=== PATIENT | female | born 1935 | race African-American/Black ===

== ENCOUNTER 2017-03-22 04:41 | Inpatient (IN) | payer MEDICARE, MEDICAID ==
[~2017-03-22] VITALS: Ht 162.6 cm; Wt 69.9 kg
[2017-03-22] VITALS (57 sets, daily range): BP systolic 55–147; BP diastolic 25–102
[2017-03-22] MEDS ORDERED: NOREPINEPHRINE 4MG in DEXT 5% WATER 250ML IV PRN (06:00)
[2017-03-22] MEDS ORDERED: STERILE WATER FOR INJECTION 10ML VIAL ONE (06:00)
[2017-03-22] MEDS ORDERED: ETOMIDATE 2MG/ML 10ML VIAL IV ONE (06:00)
[2017-03-22] MEDS ORDERED: VECURONIUM BROMIDE 10 MG/VIAL IV ONE (06:00)
[2017-03-22] MEDS ORDERED: SODIUM CHLORIDE 0.9% 1,000 ML IV SCH (06:15)
[2017-03-22] MEDS ORDERED: VANCOMYCIN 1 G PREMIX 200 ML IV SCH ×2 (06:15→09:30)
[2017-03-22 06:46] LABS: BASOPHILS % 0.2 % (0.0-2.0); EOSINOPHILS % 0.1 % (0.0-5.0); HEMATOCRIT. 32.4 % (36.0-48.0); HEMOGLOBIN. 10.6 g/dL (12.0-16.0); LYMPHOCYTES % 12.7 % (20.0-50.0); MEAN CORPUSCULAR HEMOGLOBIN 28.7 pg (28.0-32.0); MEAN CORPUSCULAR VOLUME 87.7 fL (81.0-99.0); MEAN PLATELET VOLUME 8.6 fl (7.4-10.4); MONOCYTES % 14.4 % (2.0-8.0); NEUTROPHILS % 72.6 % (40.0-76.0); PLATELET 398 x1000/uL (130-400); RED CELL DISTRIBUTION WIDTH 17.2 % (11.6-14.6)
[2017-03-22 06:58] LABS: CARBON DIOXIDE 26 mEq/L (21-32); CHLORIDE 96 mEq/L (98-107)
[2017-03-22 07:11] LABS: INR 1.3; PROTHROMBIN TIME 13.1 sec (9.4-11.6)
[2017-03-22 07:26] LABS: CLARITY URINE CLOUDY (CLEAR); COLOR URINE YELLOW (YELLOW); GLUCOSE URINE 1+ (NEGATIVE); KETONES URINE NEGATIVE (NEGATIVE); LEUKOCYTE ESTERASE URINE 1+ (NEGATIVE); NITRITE URINE NEGATIVE (NEGATIVE); OCCULT BLOOD URINE 1+ (NEGATIVE); PH URINE 8.5 (4.5-8.0); PROTEIN URINE 2+ (NEGATIVE); SPECIFIC GRAVITY URINE 1.014 (1.005-1.030); UROBILINOGEN URINE 0.2 E.U./dL (0.2-1.0)
[2017-03-22] MEDS ORDERED: IPRATROPIUM/ALBUTEROL 0.5-3(2.5)MG/3ML NEB HHN PRN (08:00)
[2017-03-22] MEDS ORDERED: CEFEPIME 1,000 MG in DEXTROSE 5% WATER 50 ML IV SCH (08:00)
[2017-03-22 08:02] LABS: INR 1.2; PROTHROMBIN TIME 12.7 sec (9.4-11.6)
[2017-03-22 08:21] LABS: BG BASE EXCESS -3.8 mmol/L (-2.0-2.0); BG CARBOXYHEMOGLOBIN 0.4 % (0.5-1.5); BG DEOXYHEMOGLOBIN 0.4 % (0.0-5.0); BG HCO3 ACT 22.1 mmol/L (22.0-26.0); BG METHEMOGLOBIN 0.4 % (0.0-1.5); BG OXYGEN SATURATION 99.6 % (92.0-98.5); BG OXYHEMOGLOBIN 98.8 % (94.0-97.0); BG PCO2 43.1 mmHg (35.0-45.0); BG PH 7.327 (7.350-7.450); BG PO2 327.3 mmHg (75.0-100.0); BG SAMPLE SITE RIGHT RADIAL; BG TIDAL VOLUME(mL) 550 mL; BG TOTAL HEMOGLOBIN 12.4 g/dL (12.0-18.0); BG VENT MODE VENT - A/C; BG VENT RATE 12 set
[2017-03-22] MEDS ORDERED: PROPOFOL 10MG/ML 100ML 100 ML IV PRN (09:12)
[2017-03-22] MEDS ORDERED: LEVOFLOXACIN 500MG PREMIX 100 ML IV SCH (09:30)
[2017-03-22] MEDS ORDERED: ONDANSETRON HCL 4MG/2ML VIAL IV PRN (09:30)
[2017-03-22] MEDS ORDERED: DOCUSATE SODIUM 100MG CAPSULE PO PRN (09:30)
[2017-03-22] MEDS ORDERED: LORAZEPAM 2MG/ML CPJ IV PRN (09:30)
[2017-03-22] MEDS ORDERED: NA PHOS,M-B/NA PHOS,DI-BA ENEMA 118ML PR PRN (09:30)
[2017-03-22] MEDS ORDERED: MAGNESIUM/ALUMINUM HYDROXIDE/SIMETHICONE 30ML UDC PO PRN (09:30)
[2017-03-22] MEDS ORDERED: DEXTROSE 50% WATER 50ML SYRINGE IV PRN (09:30)
[2017-03-22] MEDS ORDERED: NOREPINEPHRINE 8 MG in DEXT 5% WATER 242 ML IV PRN (10:30)
[2017-03-22] MEDS: ENOXAPARIN 40MG/0.4ML SYR SUBCUT SCH (10:36)
[2017-03-22] MEDS: FAMOTIDINE 20MG/2ML VIAL IV SCH (10:36)
[2017-03-22] MEDS: DEXT 5%/0.9% NACL KCL 20MEQ/L 1,000 ML IV SCH ×2 (10:37→10:44)
[2017-03-22] MEDS: LEVOFLOXACIN 750MG PREMIX 150 ML IV SCH (10:38)
[2017-03-22] MEDS: BLOOD SUGAR DIAGNOSTIC STRIP TEST SCH ×3 (12:01→21:00)
[2017-03-22] MEDS: INSULIN LISPRO 100 UNITS/ML SUBCUT SCH ×3 (12:08→22:51)
[2017-03-22] MEDS: IPRATROPIUM/ALBUTEROL 0.5-3(2.5)MG/3ML NEB HHN SCH ×2 (14:20→20:50)
[2017-03-22 15:53] LABS: CREATINE KINASE MB FRACTION 2.1 ng/mL (0.5-3.6); TROPONIN I 0.05 ng/mL (0.00-0.04)
[2017-03-22] MEDS: VANCOMYCIN 750 MG PREMIX 150 ML IV SCH (23:01)
[2017-03-22 23:35] LABS: TROPONIN I 0.03 ng/mL (0.00-0.04)
[2017-03-23] VITALS (83 sets, daily range): BP systolic 92–149; BP diastolic 42–74
[2017-03-23] MEDS: IPRATROPIUM/ALBUTEROL 0.5-3(2.5)MG/3ML NEB HHN SCH ×4 (02:21→20:37)
[2017-03-23] MEDS: DEXT 5%/0.9% NACL KCL 20MEQ/L 1,000 ML IV SCH ×2 (05:45→16:34)
[2017-03-23] MEDS: BLOOD SUGAR DIAGNOSTIC STRIP TEST SCH ×4 (05:53→20:59)
[2017-03-23] MEDS: INSULIN LISPRO 100 UNITS/ML SUBCUT SCH ×4 (06:04→21:12)
[2017-03-23] MEDS ORDERED: NOREPINEPHRINE 8 MG in DEXT 5% WATER 242 ML IV PRN (06:30)
[2017-03-23] MEDS: FAMOTIDINE 20MG/2ML VIAL IV SCH (08:43)
[2017-03-23] MEDS: ENOXAPARIN 40MG/0.4ML SYR SUBCUT SCH (08:43)
[2017-03-23 09:28] LABS: BG BASE EXCESS 0.3 mmol/L (-2.0-2.0); BG CARBOXYHEMOGLOBIN 0.3 % (0.5-1.5); BG DEOXYHEMOGLOBIN 2.3 % (0.0-5.0); BG FRACTION INSPIRED OXYGEN 40; BG HCO3 ACT 23.9 mmol/L (22.0-26.0); BG METHEMOGLOBIN 0.1 % (0.0-1.5); BG OXYGEN SATURATION 97.7 % (92.0-98.5); BG OXYHEMOGLOBIN 97.3 % (94.0-97.0); BG PCO2 34.5 mmHg (35.0-45.0); BG PH 7.458 (7.350-7.450); BG PO2 97.5 mmHg (75.0-100.0); BG SAMPLE SITE RIGHT RADIAL; BG TIDAL VOLUME(mL) 550 mL; BG TOTAL HEMOGLOBIN 9.4 g/dL (12.0-18.0); BG VENT MODE VENT - A/C; BG VENT RATE 12 set
[2017-03-23 15:16] LABS: CARBON DIOXIDE 26 mEq/L (21-32); CHLORIDE 108 mEq/L (98-107)
[2017-03-23 16:24] LABS: BASOPHILS % 0.2 % (0.0-2.0); EOSINOPHILS % 0.2 % (0.0-5.0); HEMATOCRIT. 27.3 % (36.0-48.0); HEMOGLOBIN. 8.9 g/dL (12.0-16.0); LYMPHOCYTES % 14.3 % (20.0-50.0); MEAN CORPUSCULAR HEMOGLOBIN 28.6 pg (28.0-32.0); MEAN PLATELET VOLUME 8.1 fl (7.4-10.4); MONOCYTES % 13.5 % (2.0-8.0); NEUTROPHILS % 71.8 % (40.0-76.0); PLATELET 333 x1000/uL (130-400); RED CELL DISTRIBUTION WIDTH 17.2 % (11.6-14.6)
[2017-03-23 16:58] LABS: BG BASE EXCESS -0.1 mmol/L (-2.0-2.0); BG CARBOXYHEMOGLOBIN 0.1 % (0.5-1.5); BG DEOXYHEMOGLOBIN 6.4 % (0.0-5.0); BG FRACTION INSPIRED OXYGEN 40; BG HCO3 ACT 24.1 mmol/L (22.0-26.0); BG METHEMOGLOBIN 0.2 % (0.0-1.5); BG OXYGEN SATURATION 93.6 % (92.0-98.5); BG OXYHEMOGLOBIN 93.3 % (94.0-97.0); BG PCO2 37.7 mmHg (35.0-45.0); BG PH 7.424 (7.350-7.450); BG PO2 65.9 mmHg (75.0-100.0); BG PRESSURE SUPPORT 15; BG SAMPLE SITE RIGHT BRACHIAL; BG TIDAL VOLUME(mL) 550 mL; BG TOTAL HEMOGLOBIN 9.5 g/dL (12.0-18.0); BG VENT MODE VENT - SIMV; BG VENT RATE 10 set
[2017-03-23] MEDS: VANCOMYCIN 750 MG PREMIX 150 ML IV SCH (17:21)
[2017-03-24] VITALS (48 sets, daily range): BP systolic 102–165; BP diastolic 50–107
[2017-03-24] MEDS: IPRATROPIUM/ALBUTEROL 0.5-3(2.5)MG/3ML NEB HHN SCH ×4 (02:08→19:57)
[2017-03-24] MEDS: DEXT 5%/0.9% NACL KCL 20MEQ/L 1,000 ML IV SCH ×3 (02:37→22:06)
[2017-03-24] MEDS: BLOOD SUGAR DIAGNOSTIC STRIP TEST SCH ×4 (05:50→21:55)
[2017-03-24] MEDS: INSULIN LISPRO 100 UNITS/ML SUBCUT SCH ×4 (05:50→22:05)
[2017-03-24] MEDS: FAMOTIDINE 20MG/2ML VIAL IV SCH (08:09)
[2017-03-24] MEDS: ENOXAPARIN 40MG/0.4ML SYR SUBCUT SCH (08:09)
[2017-03-24 09:18] LABS: BG BASE EXCESS -1.9 mmol/L (-2.0-2.0); BG CARBOXYHEMOGLOBIN 0.4 % (0.5-1.5); BG DEOXYHEMOGLOBIN 2.4 % (0.0-5.0); BG FRACTION INSPIRED OXYGEN 40; BG HCO3 ACT 22.1 mmol/L (22.0-26.0); BG METHEMOGLOBIN 0.4 % (0.0-1.5); BG OXYGEN SATURATION 97.6 % (92.0-98.5); BG OXYHEMOGLOBIN 96.8 % (94.0-97.0); BG PH 7.419 (7.350-7.450); BG PO2 93.9 mmHg (75.0-100.0); BG SAMPLE SITE RIGHT RADIAL; BG TIDAL VOLUME(mL) 550 mL; BG TOTAL HEMOGLOBIN 9.6 g/dL (12.0-18.0); BG VENT MODE VENT - A/C; BG VENT RATE 12 set
[2017-03-24] MEDS: LEVOFLOXACIN 750MG PREMIX 150 ML IV SCH (10:23)
[2017-03-24] MEDS: VANCOMYCIN 1 G PREMIX 200 ML IV SCH (10:31)
[2017-03-24] MEDS: ACETAMINOPHEN 325MG TABLET PO PRN (13:17)
[2017-03-24] MEDS: AZTREONAM 1 G in DEXTROSE 5% WATER 50 ML IV SCH ×2 (14:37→22:05)
[2017-03-24 20:27] LABS: HEMATOCRIT. 25.6 % (36.0-48.0); HEMOGLOBIN. 8.3 g/dL (12.0-16.0); MEAN CORPUSCULAR HEMOGLOBIN 28.4 pg (28.0-32.0); MEAN CORPUSCULAR VOLUME 88.2 fL (81.0-99.0); MEAN PLATELET VOLUME 8.9 fl (7.4-10.4); PLATELET 335 x1000/uL (130-400); RED CELL DISTRIBUTION WIDTH 17.3 % (11.6-14.6)
[2017-03-24 20:28] LABS: CHLORIDE 108 mEq/L (98-107)
[2017-03-24 20:36] LABS: CARBON DIOXIDE 24 mEq/L (21-32)
[2017-03-24 21:19] LABS: PLATELET ESTIMATE NORMAL
[2017-03-25] VITALS (46 sets, daily range): BP systolic 97–159; BP diastolic 51–116
[2017-03-25] MEDS: VANCOMYCIN 1 G PREMIX 200 ML IV SCH (03:35)
[2017-03-25] MEDS: AZTREONAM 1 G in DEXTROSE 5% WATER 50 ML IV SCH ×3 (05:07→21:20)
[2017-03-25 05:47] LABS: HEMATOCRIT. 24.5 % (36.0-48.0); MEAN CORPUSCULAR HEMOGLOBIN 28.8 pg (28.0-32.0); MEAN PLATELET VOLUME 8.5 fl (7.4-10.4); PLATELET 315 x1000/uL (130-400); RED BLOOD CELL COUNT 2.79 mill/uL (4.2-5.4); RED CELL DISTRIBUTION WIDTH 17.8 % (11.6-14.6)
[2017-03-25] MEDS: ACETAMINOPHEN 325MG TABLET PO PRN (06:24)
[2017-03-25] MEDS: BLOOD SUGAR DIAGNOSTIC STRIP TEST SCH ×4 (06:41→20:28)
[2017-03-25] MEDS: INSULIN LISPRO 100 UNITS/ML SUBCUT SCH ×4 (06:46→20:28)
[2017-03-25] MEDS: DEXT 5%/0.9% NACL KCL 20MEQ/L 1,000 ML IV SCH ×2 (06:57→17:19)
[2017-03-25 06:58] LABS: CARBON DIOXIDE 23 mEq/L (21-32); CHLORIDE 107 mEq/L (98-107)
[2017-03-25 07:47] LABS: PLATELET ESTIMATE NORMAL
[2017-03-25] MEDS: ENOXAPARIN 40MG/0.4ML SYR SUBCUT SCH (08:11)
[2017-03-25] MEDS: FAMOTIDINE 20MG/2ML VIAL IV SCH (08:11)
[2017-03-25] MEDS: IPRATROPIUM/ALBUTEROL 0.5-3(2.5)MG/3ML NEB HHN SCH ×3 (08:33→20:26)
[2017-03-25 09:38] LABS: BG BASE EXCESS -2.2 mmol/L (-2.0-2.0); BG CARBOXYHEMOGLOBIN 0.6 % (0.5-1.5); BG DEOXYHEMOGLOBIN 1.2 % (0.0-5.0); BG FRACTION INSPIRED OXYGEN 40; BG HCO3 ACT 21.7 mmol/L (22.0-26.0); BG METHEMOGLOBIN 0.3 % (0.0-1.5); BG OXYGEN SATURATION 98.8 % (92.0-98.5); BG OXYHEMOGLOBIN 97.9 % (94.0-97.0); BG PH 7.435 (7.350-7.450); BG PO2 119.9 mmHg (75.0-100.0); BG SAMPLE SITE RIGHT RADIAL; BG TIDAL VOLUME(mL) 550 mL; BG TOTAL HEMOGLOBIN 8.4 g/dL (12.0-18.0); BG VENT MODE VENT - A/C; BG VENT RATE 12 set
[2017-03-25] MEDS: AMIKACIN 500MG in SODIUM CHLORIDE 0.9% 100ML IV SCH (15:15)
[2017-03-26] VITALS (46 sets, daily range): BP systolic 107–189; BP diastolic 49–138
[2017-03-26] MEDS: ACETAMINOPHEN 325MG TABLET PO PRN ×2 (00:39→19:36)
[2017-03-26] MEDS: IPRATROPIUM/ALBUTEROL 0.5-3(2.5)MG/3ML NEB HHN SCH ×4 (01:42→20:47)
[2017-03-26] MEDS: DEXT 5%/0.9% NACL KCL 20MEQ/L 1,000 ML IV SCH ×2 (04:54→15:21)
[2017-03-26] MEDS: AZTREONAM 1 G in DEXTROSE 5% WATER 50 ML IV SCH ×3 (04:57→21:28)
[2017-03-26] MEDS: BLOOD SUGAR DIAGNOSTIC STRIP TEST SCH ×4 (06:11→20:03)
[2017-03-26 06:34] LABS: CARBON DIOXIDE 22 mEq/L (21-32); CHLORIDE 106 mEq/L (98-107)
[2017-03-26] MEDS: INSULIN LISPRO 100 UNITS/ML SUBCUT SCH ×4 (06:48→21:08)
[2017-03-26 07:30] LABS: HEMATOCRIT. 26.6 % (36.0-48.0); HEMOGLOBIN. 8.1 g/dL (12.0-16.0); MEAN CORPUSCULAR HEMOGLOBIN 27.3 pg (28.0-32.0); RED BLOOD CELL COUNT 2.98 mill/uL (4.2-5.4); RED CELL DISTRIBUTION WIDTH 18.2 % (11.6-14.6)
[2017-03-26] MEDS: AMIKACIN 500MG in SODIUM CHLORIDE 0.9% 100ML IV SCH (07:54)
[2017-03-26] MEDS: FAMOTIDINE 20MG/2ML VIAL IV SCH (08:00)
[2017-03-26] MEDS: ENOXAPARIN 40MG/0.4ML SYR SUBCUT SCH (08:00)
[2017-03-26 10:47] LABS: MEAN PLATELET VOLUME 9.3 fl (7.4-10.4); PLATELET 299 x1000/uL (130-400); PLATELET ESTIMATE NORMAL
[2017-03-27] VITALS (47 sets, daily range): BP systolic 105–163; BP diastolic 51–129
[2017-03-27] MEDS: DEXT 5%/0.9% NACL KCL 20MEQ/L 1,000 ML IV SCH ×3 (00:30→19:58)
[2017-03-27] MEDS: IPRATROPIUM/ALBUTEROL 0.5-3(2.5)MG/3ML NEB HHN SCH ×5 (02:19→20:22)
[2017-03-27] MEDS: AMIKACIN 500MG in SODIUM CHLORIDE 0.9% 100ML IV SCH ×2 (03:00→19:58)
[2017-03-27] MEDS: BLOOD SUGAR DIAGNOSTIC STRIP TEST SCH ×4 (05:48→20:05)
[2017-03-27] MEDS: INSULIN LISPRO 100 UNITS/ML SUBCUT SCH ×4 (05:59→21:10)
[2017-03-27] MEDS: AZTREONAM 1 G in DEXTROSE 5% WATER 50 ML IV SCH ×3 (06:00→21:10)
[2017-03-27 06:03] LABS: HEMATOCRIT. 27.5 % (36.0-48.0); HEMOGLOBIN. 8.9 g/dL (12.0-16.0); MEAN CORPUSCULAR HEMOGLOBIN 28.3 pg (28.0-32.0); MEAN CORPUSCULAR VOLUME 87.1 fL (81.0-99.0); MEAN PLATELET VOLUME 8.6 fl (7.4-10.4); PLATELET 341 x1000/uL (130-400); RED BLOOD CELL COUNT 3.15 mill/uL (4.2-5.4); RED CELL DISTRIBUTION WIDTH 17.7 % (11.6-14.6)
[2017-03-27 06:50] LABS: CARBON DIOXIDE 24 mEq/L (21-32); CHLORIDE 105 mEq/L (98-107)
[2017-03-27] MEDS: ENOXAPARIN 40MG/0.4ML SYR SUBCUT SCH (10:00)
[2017-03-27] MEDS: FAMOTIDINE 20MG/2ML VIAL IV SCH (10:00)
[2017-03-27 10:36] LABS: PLATELET ESTIMATE NORMAL
[2017-03-27] MEDS: ACETYLCYSTEINE 100MG/ML 10% VIAL 4ML INH SCH ×2 (15:41→20:23)
[2017-03-28] VITALS (37 sets, daily range): BP systolic 104–164; BP diastolic 50–86
[2017-03-28] MEDS: ACETYLCYSTEINE 100MG/ML 10% VIAL 4ML INH SCH ×6 (00:39→20:45)
[2017-03-28] MEDS: IPRATROPIUM/ALBUTEROL 0.5-3(2.5)MG/3ML NEB HHN SCH ×6 (00:39→20:45)
[2017-03-28] MEDS: DEXT 5%/0.9% NACL KCL 20MEQ/L 1,000 ML IV SCH ×2 (05:32→15:16)
[2017-03-28] MEDS: BLOOD SUGAR DIAGNOSTIC STRIP TEST SCH ×4 (05:32→20:56)
[2017-03-28] MEDS: AZTREONAM 1 G in DEXTROSE 5% WATER 50 ML IV SCH ×3 (05:32→21:55)
[2017-03-28] MEDS: INSULIN LISPRO 100 UNITS/ML SUBCUT SCH ×4 (06:40→21:02)
[2017-03-28 07:14] LABS: BG BASE EXCESS -4.8 mmol/L (-2.0-2.0); BG CARBOXYHEMOGLOBIN 0.3 % (0.5-1.5); BG DEOXYHEMOGLOBIN 3.5 % (0.0-5.0); BG HCO3 ACT 19.4 mmol/L (22.0-26.0); BG METHEMOGLOBIN 0.2 % (0.0-1.5); BG OXYGEN SATURATION 96.5 % (92.0-98.5); BG PCO2 31.9 mmHg (35.0-45.0); BG PH 7.402 (7.350-7.450); BG PO2 86.8 mmHg (75.0-100.0); BG SAMPLE SITE RIGHT RADIAL; BG TIDAL VOLUME(mL) 500 mL; BG TOTAL HEMOGLOBIN 7.8 g/dL (12.0-18.0); BG VENT MODE VENT - A/C; BG VENT RATE 10 set
[2017-03-28] MEDS: ENOXAPARIN 40MG/0.4ML SYR SUBCUT SCH (08:27)
[2017-03-28] MEDS: FAMOTIDINE 20MG/2ML VIAL IV SCH (08:28)
[2017-03-28] MEDS: AMIKACIN 500MG in SODIUM CHLORIDE 0.9% 100ML IV SCH (13:45)
[2017-03-28] MEDS: ACETAMINOPHEN 325MG TABLET PO PRN (19:27)
[2017-03-29] VITALS (37 sets, daily range): BP systolic 119–173; BP diastolic 57–89
[2017-03-29] MEDS: ACETYLCYSTEINE 100MG/ML 10% VIAL 4ML INH SCH ×5 (00:30→20:22)
[2017-03-29] MEDS: IPRATROPIUM/ALBUTEROL 0.5-3(2.5)MG/3ML NEB HHN SCH ×6 (00:30→20:22)
[2017-03-29] MEDS: DEXT 5%/0.9% NACL KCL 20MEQ/L 1,000 ML IV SCH ×3 (02:54→22:47)
[2017-03-29 05:28] LABS: HEMATOCRIT. 23.4 % (36.0-48.0); HEMOGLOBIN. 7.6 g/dL (12.0-16.0); MEAN CORPUSCULAR HEMOGLOBIN 28.1 pg (28.0-32.0); MEAN CORPUSCULAR VOLUME 86.3 fL (81.0-99.0); MEAN PLATELET VOLUME 8.4 fl (7.4-10.4); PLATELET 378 x1000/uL (130-400); RED BLOOD CELL COUNT 2.71 mill/uL (4.2-5.4); RED CELL DISTRIBUTION WIDTH 17.2 % (11.6-14.6)
[2017-03-29 05:37] LABS: INR 1.1; PROTHROMBIN TIME 11.6 sec (9.4-11.6)
[2017-03-29] MEDS: AZTREONAM 1 G in DEXTROSE 5% WATER 50 ML IV SCH ×3 (05:42→21:39)
[2017-03-29] MEDS: BLOOD SUGAR DIAGNOSTIC STRIP TEST SCH ×4 (05:45→21:41)
[2017-03-29 06:04] LABS: CARBON DIOXIDE 20 mEq/L (21-32); CHLORIDE 105 mEq/L (98-107)
[2017-03-29] MEDS: AMIKACIN 500MG in SODIUM CHLORIDE 0.9% 100ML IV SCH (08:50)
[2017-03-29] MEDS: FAMOTIDINE 20MG/2ML VIAL IV SCH (08:50)
[2017-03-29] MEDS: INSULIN LISPRO 100 UNITS/ML SUBCUT SCH ×4 (08:52→21:41)
[2017-03-29 09:47] LABS: PLATELET ESTIMATE NORMAL
[2017-03-29] MEDS: GUAIFENESIN 200MG/10ML SUGAR FREE UDC PO SCH ×3 (14:19→21:39)
[2017-03-29] MEDS: CLONIDINE 0.1MG TABLET PO PRN (18:46)
[2017-03-29] MEDS: ENOXAPARIN 30MG/0.3ML SYR SUBCUT SCH (21:40)
[2017-03-30] VITALS (29 sets, daily range): BP systolic 102–178; BP diastolic 45–102
[2017-03-30] MEDS: ACETYLCYSTEINE 100MG/ML 10% VIAL 4ML INH SCH ×7 (00:42→20:25)
[2017-03-30] MEDS: IPRATROPIUM/ALBUTEROL 0.5-3(2.5)MG/3ML NEB HHN SCH ×6 (00:42→20:25)
[2017-03-30] MEDS: GUAIFENESIN 200MG/10ML SUGAR FREE UDC PO SCH ×6 (01:33→20:40)
[2017-03-30] MEDS: AMIKACIN 500MG in SODIUM CHLORIDE 0.9% 100ML IV SCH ×2 (01:33→20:40)
[2017-03-30] MEDS: CLONIDINE 0.1MG TABLET PO PRN (04:40)
[2017-03-30] MEDS: BLOOD SUGAR DIAGNOSTIC STRIP TEST SCH ×4 (06:30→20:42)
[2017-03-30] MEDS: AZTREONAM 1 G in DEXTROSE 5% WATER 50 ML IV SCH ×3 (06:30→21:45)
[2017-03-30] MEDS: INSULIN LISPRO 100 UNITS/ML SUBCUT SCH ×4 (06:31→20:41)
[2017-03-30] MEDS: ENOXAPARIN 30MG/0.3ML SYR SUBCUT SCH ×2 (08:47→20:42)
[2017-03-30] MEDS: DEXT 5%/0.9% NACL KCL 20MEQ/L 1,000 ML IV SCH ×2 (08:47→20:40)
[2017-03-30] MEDS: FAMOTIDINE 20MG/2ML VIAL IV SCH (08:47)
[2017-03-30 08:55] LABS: BG BASE EXCESS -3.4 mmol/L (-2.0-2.0); BG CARBOXYHEMOGLOBIN 0.6 % (0.5-1.5); BG DEOXYHEMOGLOBIN 2.9 % (0.0-5.0); BG FRACTION INSPIRED OXYGEN 28; BG HCO3 ACT 19.7 mmol/L (22.0-26.0); BG METHEMOGLOBIN 0.3 % (0.0-1.5); BG OXYGEN SATURATION 97.1 % (92.0-98.5); BG OXYHEMOGLOBIN 96.2 % (94.0-97.0); BG PCO2 27.7 mmHg (35.0-45.0); BG PH 7.469 (7.350-7.450); BG PRESSURE SUPPORT 8; BG SAMPLE SITE LEFT RADIAL; BG TIDAL VOLUME(mL) 500 mL; BG TOTAL HEMOGLOBIN 7.9 g/dL (12.0-18.0); BG VENT MODE VENT - SIMV; BG VENT RATE 6 set
[2017-03-30] MEDS: ACETAMINOPHEN 325MG TABLET PO PRN (20:40)
[2017-03-31] VITALS (25 sets, daily range): BP systolic 99–162; BP diastolic 51–89
[2017-03-31] MEDS: IPRATROPIUM/ALBUTEROL 0.5-3(2.5)MG/3ML NEB HHN SCH ×6 (00:21→21:08)
[2017-03-31] MEDS: ACETYLCYSTEINE 100MG/ML 10% VIAL 4ML INH SCH ×7 (00:21→21:08)
[2017-03-31] MEDS: GUAIFENESIN 200MG/10ML SUGAR FREE UDC PO SCH ×6 (01:26→20:36)
[2017-03-31] MEDS: ACETAMINOPHEN 325MG TABLET PO PRN ×2 (04:39→12:32)
[2017-03-31] MEDS: DEXT 5%/0.9% NACL KCL 20MEQ/L 1,000 ML IV SCH ×3 (04:39→23:30)
[2017-03-31] MEDS: AZTREONAM 1 G in DEXTROSE 5% WATER 50 ML IV SCH (05:28)
[2017-03-31] MEDS: INSULIN LISPRO 100 UNITS/ML SUBCUT SCH ×4 (06:47→20:49)
[2017-03-31] MEDS: BLOOD SUGAR DIAGNOSTIC STRIP TEST SCH ×4 (06:47→20:44)
[2017-03-31] MEDS: ENOXAPARIN 30MG/0.3ML SYR SUBCUT SCH (08:34)
[2017-03-31] MEDS: FAMOTIDINE 20MG/2ML VIAL IV SCH (08:34)
[2017-03-31 11:34] LABS: BASOPHILS % 0.1 % (0.0-2.0); EOSINOPHILS % 0.4 % (0.0-5.0); HEMATOCRIT. 25.2 % (36.0-48.0); HEMOGLOBIN. 8.1 g/dL (12.0-16.0); LYMPHOCYTES % 8.4 % (20.0-50.0); MEAN CORPUSCULAR HEMOGLOBIN 27.7 pg (28.0-32.0); MEAN CORPUSCULAR VOLUME 86.4 fL (81.0-99.0); MEAN PLATELET VOLUME 8.3 fl (7.4-10.4); MONOCYTES % 4.9 % (2.0-8.0); NEUTROPHILS % 86.2 % (40.0-76.0); PLATELET 444 x1000/uL (130-400); RED BLOOD CELL COUNT 2.91 mill/uL (4.2-5.4); RED CELL DISTRIBUTION WIDTH 18.2 % (11.6-14.6)
[2017-03-31 11:45] LABS: CARBON DIOXIDE 22 mEq/L (21-32); CHLORIDE 105 mEq/L (98-107)
[2017-03-31] MEDS: DIPHENHYDRAMINE 50MG/ML VIAL IV PRN (12:32)
[2017-03-31] MEDS: METHYLPREDNISOLONE SOD SUCC 125 MG/2 ML VIAL IV SCH ×2 (14:56→22:12)
[2017-03-31] MEDS: AMIKACIN 500MG in SODIUM CHLORIDE 0.9% 100ML IV SCH (14:56)
[2017-03-31] MEDS ORDERED: VANCOMYCIN 1500MG in DEXTROSE 5% WATER 250ML IV SCH (16:00)
[2017-03-31] MEDS: COLISTIMETHATE SODIUM 150MG/VIAL INH SCH (22:35)
[2017-04-01] VITALS (58 sets, daily range): BP systolic 78–233; BP diastolic 30–127
[2017-04-01] MEDS: IPRATROPIUM/ALBUTEROL 0.5-3(2.5)MG/3ML NEB HHN SCH ×6 (00:57→21:26)
[2017-04-01] MEDS: GUAIFENESIN 200MG/10ML SUGAR FREE UDC PO SCH ×7 (01:15→20:53)
[2017-04-01] MEDS: ACETYLCYSTEINE 100MG/ML 10% VIAL 4ML INH SCH ×4 (05:20→13:08)
[2017-04-01] MEDS: METHYLPREDNISOLONE SOD SUCC 125 MG/2 ML VIAL IV SCH (05:39)
[2017-04-01] MEDS: BLOOD SUGAR DIAGNOSTIC STRIP TEST SCH ×4 (05:43→20:52)
[2017-04-01] MEDS: INSULIN LISPRO 100 UNITS/ML SUBCUT SCH ×4 (05:45→20:50)
[2017-04-01 06:10] LABS: BASOPHILS % 0.3 % (0.0-2.0); HEMATOCRIT. 24.6 % (36.0-48.0); HEMOGLOBIN. 7.8 g/dL (12.0-16.0); MEAN CORPUSCULAR HEMOGLOBIN 27.8 pg (28.0-32.0); MEAN CORPUSCULAR VOLUME 88.2 fL (81.0-99.0); MEAN PLATELET VOLUME 9.4 fl (7.4-10.4); MONOCYTES % 1.9 % (2.0-8.0); NEUTROPHILS % 89.8 % (40.0-76.0); PLATELET 484 x1000/uL (130-400); RED CELL DISTRIBUTION WIDTH 17.9 % (11.6-14.6)
[2017-04-01 06:24] LABS: CARBON DIOXIDE 19 mEq/L (21-32); CHLORIDE 106 mEq/L (98-107); CREATINE KINASE 23 IU/L (26-192)
[2017-04-01] MEDS: AMIKACIN 500MG in SODIUM CHLORIDE 0.9% 100ML IV SCH (08:18)
[2017-04-01] MEDS: FAMOTIDINE 20MG/2ML VIAL IV SCH (08:19)
[2017-04-01] MEDS: DEXT 5%/0.9% NACL KCL 20MEQ/L 1,000 ML IV SCH ×2 (09:48→20:30)
[2017-04-01] MEDS: COLISTIMETHATE SODIUM 150MG/VIAL INH SCH ×2 (09:50→21:05)
[2017-04-01] MEDS: VANCOMYCIN 1 G PREMIX 200 ML IV SCH (12:32)
[2017-04-01] MEDS ORDERED: SODIUM BICARBONATE 4% (2.4MEQ) 5ML VIAL IV ONE (14:19)
[2017-04-01] MEDS ORDERED: LIDOCAINE HCL 1% 20ML VIAL (Pyxis) INJ ONE (14:19)
[2017-04-01] MEDS ORDERED: ROCURONIUM BROMIDE 10MG/ML VIAL 5ML IV ONE (14:30)
[2017-04-01] MEDS ORDERED: LABETALOL HCL 5MG/ML VIAL 20ML IV ONE (14:59)
[2017-04-01] MEDS: CLONIDINE 0.1MG TABLET PO PRN ×2 (15:52→20:53)
[2017-04-01] MEDS: DIPHENHYDRAMINE 50MG/ML VIAL IV PRN (16:18)
[2017-04-01] MEDS: ACETAMINOPHEN 325MG TABLET PO PRN (16:19)
[2017-04-01] MEDS: NITROGLYCERIN OINT 1GM/INCH UDPKT TD SCH (18:00)
[2017-04-01] MEDS: INSULIN DETEMIR UD 100 UNITS/ML SYR SUBCUT SCH (21:25)
[2017-04-01] MEDS: MORPHINE SULFATE 4 MG/ML CPJ (NOT FOR IM USE) IV PRN (21:26)
[2017-04-02] VITALS (92 sets, daily range): BP systolic 123–195; BP diastolic 60–160
[2017-04-02] MEDS: IPRATROPIUM/ALBUTEROL 0.5-3(2.5)MG/3ML NEB HHN SCH ×6 (00:59→20:31)
[2017-04-02] MEDS: GUAIFENESIN 200MG/10ML SUGAR FREE UDC PO SCH ×6 (01:05→20:18)
[2017-04-02] MEDS: AMIKACIN 500MG in SODIUM CHLORIDE 0.9% 100ML IV SCH ×2 (01:05→20:34)
[2017-04-02] MEDS: CLONIDINE 0.1MG TABLET PO PRN (03:42)
[2017-04-02] MEDS: VANCOMYCIN 1 G PREMIX 200 ML IV SCH ×2 (05:21→23:15)
[2017-04-02] MEDS: BLOOD SUGAR DIAGNOSTIC STRIP TEST SCH ×4 (06:39→20:34)
[2017-04-02] MEDS: INSULIN LISPRO 100 UNITS/ML SUBCUT SCH ×4 (06:42→20:41)
[2017-04-02] MEDS: MORPHINE SULFATE 4 MG/ML CPJ (NOT FOR IM USE) IV PRN ×2 (06:49→23:23)
[2017-04-02] MEDS: DEXT 5%/0.9% NACL KCL 20MEQ/L 1,000 ML IV SCH ×2 (08:09→17:28)
[2017-04-02] MEDS: COLISTIMETHATE SODIUM 150MG/VIAL INH SCH ×2 (08:53→20:32)
[2017-04-02] MEDS: NITROGLYCERIN OINT 1GM/INCH UDPKT TD SCH (09:33)
[2017-04-02] MEDS: FAMOTIDINE 20MG/2ML VIAL IV SCH (09:33)
[2017-04-02] MEDS ORDERED: HYDRALAZINE 20MG/ML VIAL IV PRN (18:15)
[2017-04-02] MEDS ORDERED: CLONIDINE HCL 0.2MG/24HR PATCH TD SCH (20:00)
[2017-04-02] MEDS: INSULIN DETEMIR UD 100 UNITS/ML SYR SUBCUT SCH (21:27)
[2017-04-02] MEDS: HYDRALAZINE 20MG/ML VIAL IV SCH (23:15)
[2017-04-03] VITALS (45 sets, daily range): BP systolic 129–178; BP diastolic 39–83
[2017-04-03] MEDS: IPRATROPIUM/ALBUTEROL 0.5-3(2.5)MG/3ML NEB HHN SCH ×6 (00:12→20:47)
[2017-04-03] MEDS: GUAIFENESIN 200MG/10ML SUGAR FREE UDC PO SCH ×6 (00:36→21:15)
[2017-04-03] MEDS: DEXT 5%/0.9% NACL KCL 20MEQ/L 1,000 ML IV SCH ×3 (02:30→23:52)
[2017-04-03] MEDS: BLOOD SUGAR DIAGNOSTIC STRIP TEST SCH ×4 (05:33→23:51)
[2017-04-03] MEDS: HYDRALAZINE 20MG/ML VIAL IV SCH ×4 (05:33→23:50)
[2017-04-03 05:43] LABS: BASOPHILS % 0.4 % (0.0-2.0); EOSINOPHILS % 0.5 % (0.0-5.0); HEMATOCRIT. 22.9 % (36.0-48.0); HEMOGLOBIN. 7.3 g/dL (12.0-16.0); LYMPHOCYTES % 18.5 % (20.0-50.0); MEAN CORPUSCULAR HEMOGLOBIN 27.5 pg (28.0-32.0); MEAN CORPUSCULAR VOLUME 86.6 fL (81.0-99.0); MEAN PLATELET VOLUME 8.6 fl (7.4-10.4); MONOCYTES % 12.5 % (2.0-8.0); NEUTROPHILS % 68.1 % (40.0-76.0); PLATELET 611 x1000/uL (130-400); RED BLOOD CELL COUNT 2.64 mill/uL (4.2-5.4); RED CELL DISTRIBUTION WIDTH 17.8 % (11.6-14.6)
[2017-04-03 06:18] LABS: CARBON DIOXIDE 23 mEq/L (21-32); CHLORIDE 109 mEq/L (98-107)
[2017-04-03] MEDS: INSULIN LISPRO 100 UNITS/ML SUBCUT SCH ×4 (06:20→23:49)
[2017-04-03] MEDS: CLONIDINE HCL 0.2MG/24HR PATCH TD SCH (08:49)
[2017-04-03] MEDS: FAMOTIDINE 20MG/2ML VIAL IV SCH (08:49)
[2017-04-03] MEDS: NITROGLYCERIN OINT 1GM/INCH UDPKT TD SCH (08:50)
[2017-04-03] MEDS: COLISTIMETHATE SODIUM 150MG/VIAL INH SCH ×2 (09:12→20:50)
[2017-04-03 11:44] LABS: BG BASE EXCESS -6.4 mmol/L (-2.0-2.0); BG DEOXYHEMOGLOBIN 2.9 % (0.0-5.0); BG FRACTION INSPIRED OXYGEN 28; BG HCO3 ACT 16.9 mmol/L (22.0-26.0); BG METHEMOGLOBIN 0.3 % (0.0-1.5); BG OXYGEN SATURATION 97.1 % (92.0-98.5); BG OXYHEMOGLOBIN 96.8 % (94.0-97.0); BG PCO2 25.6 mmHg (35.0-45.0); BG PH 7.438 (7.350-7.450); BG PO2 98.4 mmHg (75.0-100.0); BG SAMPLE SITE RIGHT RADIAL; BG TIDAL VOLUME(mL) 550 mL; BG VENT MODE VENT - A/C; BG VENT RATE 10 set
[2017-04-03] MEDS: AMIKACIN 500MG in SODIUM CHLORIDE 0.9% 100ML IV SCH (13:53)
[2017-04-03] MEDS: VANCOMYCIN 1 G PREMIX 200 ML IV SCH (23:47)
[2017-04-03] MEDS: INSULIN DETEMIR UD 100 UNITS/ML SYR SUBCUT SCH (23:49)
[2017-04-04] VITALS (12 sets, daily range): BP systolic 129–165; BP diastolic 52–79
[2017-04-04] MEDS: IPRATROPIUM/ALBUTEROL 0.5-3(2.5)MG/3ML NEB HHN SCH ×6 (00:06→20:21)
[2017-04-04] MEDS: GUAIFENESIN 200MG/10ML SUGAR FREE UDC PO SCH ×6 (01:15→22:02)
[2017-04-04] MEDS: HYDRALAZINE 20MG/ML VIAL IV SCH ×4 (05:30→23:27)
[2017-04-04] MEDS: INSULIN LISPRO 100 UNITS/ML SUBCUT SCH ×4 (05:34→23:27)
[2017-04-04] MEDS: BLOOD SUGAR DIAGNOSTIC STRIP TEST SCH ×4 (05:35→23:28)
[2017-04-04 05:52] LABS: INR 1.1; PARTIAL THROMBOPLASTIN TIME 27.1 sec (23.4-31.0); PROTHROMBIN TIME 11.7 sec (9.4-11.6)
[2017-04-04] MEDS: AMIKACIN 500MG in SODIUM CHLORIDE 0.9% 100ML IV SCH ×2 (08:00→11:44)
[2017-04-04] MEDS: DEXT 5%/0.9% NACL KCL 20MEQ/L 1,000 ML IV SCH (08:30)
[2017-04-04] MEDS: NITROGLYCERIN OINT 1GM/INCH UDPKT TD SCH (08:36)
[2017-04-04] MEDS: FAMOTIDINE 20MG/2ML VIAL IV SCH (08:36)
[2017-04-04] MEDS: COLISTIMETHATE SODIUM 150MG/VIAL INH SCH ×2 (12:38→20:21)
[2017-04-04] MEDS ORDERED: SODIUM CHLORIDE 0.9% 10ML VIAL ONE (13:58)
[2017-04-04] MEDS ORDERED: SIMETHICONE 40 MG/0.6 ML 30ML ONE (13:58)
[2017-04-04] MEDS ORDERED: EPINEPHRINE 0.1MG/ML (1:10,000) 10ML SYR ONE (15:52)
[2017-04-04] MEDS ORDERED: MIDAZOLAM HCL 5 MG/5 ML VIAL ONE (15:52)
[2017-04-04] MEDS ORDERED: FENTANYL CITRATE/PF 50MCG/ML 2ML VIAL ONE (15:53)
[2017-04-04] MEDS ORDERED: MIDAZOLAM HCL 5 MG/5 ML VIAL IV PRN (16:06)
[2017-04-04] MEDS: VANCOMYCIN 1 G PREMIX 200 ML IV SCH (22:02)
[2017-04-04] MEDS: INSULIN DETEMIR UD 100 UNITS/ML SYR SUBCUT SCH (22:50)
[2017-04-05] VITALS (12 sets, daily range): BP systolic 107–135; BP diastolic 51–64
[2017-04-05] MEDS: IPRATROPIUM/ALBUTEROL 0.5-3(2.5)MG/3ML NEB HHN SCH ×6 (00:21→20:20)
[2017-04-05] MEDS: GUAIFENESIN 200MG/10ML SUGAR FREE UDC PO SCH ×6 (01:29→21:24)
[2017-04-05] MEDS: AMIKACIN 500MG in SODIUM CHLORIDE 0.9% 100ML IV SCH ×2 (01:29→21:24)
[2017-04-05 04:55] LABS: BASOPHILS % 0.8 % (0.0-2.0); EOSINOPHILS % 1.2 % (0.0-5.0); HEMATOCRIT. 23.7 % (36.0-48.0); HEMOGLOBIN. 7.8 g/dL (12.0-16.0); LYMPHOCYTES % 21.9 % (20.0-50.0); MEAN CORPUSCULAR HEMOGLOBIN 28.3 pg (28.0-32.0); MEAN CORPUSCULAR VOLUME 86.4 fL (81.0-99.0); MEAN PLATELET VOLUME 7.9 fl (7.4-10.4); MONOCYTES % 9.9 % (2.0-8.0); NEUTROPHILS % 66.2 % (40.0-76.0); PLATELET 631 x1000/uL (130-400); RED BLOOD CELL COUNT 2.74 mill/uL (4.2-5.4); RED CELL DISTRIBUTION WIDTH 18.4 % (11.6-14.6)
[2017-04-05] MEDS: HYDRALAZINE 20MG/ML VIAL IV SCH ×4 (06:24→23:38)
[2017-04-05] MEDS: INSULIN LISPRO 100 UNITS/ML SUBCUT SCH ×4 (06:25→23:46)
[2017-04-05] MEDS: BLOOD SUGAR DIAGNOSTIC STRIP TEST SCH ×4 (06:25→23:47)
[2017-04-05 06:30] LABS: CARBON DIOXIDE 22 mEq/L (21-32); CHLORIDE 106 mEq/L (98-107)
[2017-04-05] MEDS: COLISTIMETHATE SODIUM 150MG/VIAL INH SCH (08:01)
[2017-04-05] MEDS: NITROGLYCERIN OINT 1GM/INCH UDPKT TD SCH (08:32)
[2017-04-05] MEDS: FAMOTIDINE 20MG/2ML VIAL IV SCH ×2 (08:32→21:24)
[2017-04-05] MEDS ORDERED: SORBITOL 70% SOLN 30ML PO NR ×2 (15:00→19:00)
[2017-04-05 16:13] LABS: TOTAL IRON BINDING CAPACITY 216 ug/dL (250-450)
[2017-04-05 18:19] LABS: FOLIC ACID (FOLATE) SERUM > 20.00 ng/mL (>5.38); VITAMIN B12 SERUM 1516 pg/mL (211-911)
[2017-04-05 18:59] LABS: FERRITIN 247 ng/mL (10-291)
[2017-04-05] MEDS: DOCUSATE SODIUM SUGAR FREE 100MG/10ML UDC GT SCH (19:38)
[2017-04-05] MEDS: VANCOMYCIN 1 G PREMIX 200 ML IV SCH (23:38)
[2017-04-05] MEDS: INSULIN DETEMIR UD 100 UNITS/ML SYR SUBCUT SCH (23:47)
[2017-04-06] VITALS (11 sets, daily range): BP systolic 94–145; BP diastolic 45–87
[2017-04-06] MEDS: IPRATROPIUM/ALBUTEROL 0.5-3(2.5)MG/3ML NEB HHN SCH ×6 (00:18→21:07)
[2017-04-06] MEDS: COLISTIMETHATE SODIUM 150MG/VIAL INH SCH ×3 (00:22→20:54)
[2017-04-06] MEDS: GUAIFENESIN 200MG/10ML SUGAR FREE UDC PO SCH ×6 (01:20→21:52)
[2017-04-06] MEDS: HYDRALAZINE 20MG/ML VIAL IV SCH ×4 (05:40→23:27)
[2017-04-06] MEDS: ACETAMINOPHEN 325MG TABLET PO PRN (05:41)
[2017-04-06] MEDS: INSULIN LISPRO 100 UNITS/ML SUBCUT SCH ×4 (06:00→23:22)
[2017-04-06] MEDS: BLOOD SUGAR DIAGNOSTIC STRIP TEST SCH ×4 (06:00→23:21)
[2017-04-06 06:22] LABS: BASOPHILS % 0.9 % (0.0-2.0); CARBON DIOXIDE 23 mEq/L (21-32); CHLORIDE 104 mEq/L (98-107); EOSINOPHILS % 1.1 % (0.0-5.0); HEMATOCRIT. 22.6 % (36.0-48.0); HEMOGLOBIN. 7.5 g/dL (12.0-16.0); LYMPHOCYTES % 25.2 % (20.0-50.0); MEAN CORPUSCULAR HEMOGLOBIN 28.4 pg (28.0-32.0); MEAN CORPUSCULAR VOLUME 85.6 fL (81.0-99.0); MEAN PLATELET VOLUME 8.8 fl (7.4-10.4); MONOCYTES % 11.2 % (2.0-8.0); NEUTROPHILS % 61.6 % (40.0-76.0); PLATELET 639 x1000/uL (130-400); RED BLOOD CELL COUNT 2.64 mill/uL (4.2-5.4); RED CELL DISTRIBUTION WIDTH 18.2 % (11.6-14.6)
[2017-04-06] MEDS: DOCUSATE SODIUM SUGAR FREE 100MG/10ML UDC GT SCH ×2 (08:56→18:22)
[2017-04-06] MEDS: FAMOTIDINE 20MG/2ML VIAL IV SCH ×2 (08:57→21:52)
[2017-04-06] MEDS: NITROGLYCERIN OINT 1GM/INCH UDPKT TD SCH (08:59)
[2017-04-06] MEDS: AMIKACIN 500MG in SODIUM CHLORIDE 0.9% 100ML IV SCH (13:47)
[2017-04-06] MEDS: INSULIN DETEMIR UD 100 UNITS/ML SYR SUBCUT SCH (21:55)
[2017-04-06] MEDS: VANCOMYCIN 1 G PREMIX 200 ML IV SCH (22:00)
[2017-04-07] VITALS (12 sets, daily range): BP systolic 95–140; BP diastolic 48–75
[2017-04-07] MEDS: IPRATROPIUM/ALBUTEROL 0.5-3(2.5)MG/3ML NEB HHN SCH ×6 (00:28→20:37)
[2017-04-07] MEDS: GUAIFENESIN 200MG/10ML SUGAR FREE UDC PO SCH ×6 (00:50→21:17)
[2017-04-07] MEDS: BLOOD SUGAR DIAGNOSTIC STRIP TEST SCH ×4 (05:05→23:31)
[2017-04-07] MEDS: HYDRALAZINE 20MG/ML VIAL IV SCH ×4 (05:16→23:41)
[2017-04-07] MEDS: INSULIN LISPRO 100 UNITS/ML SUBCUT SCH ×4 (05:18→23:42)
[2017-04-07] MEDS: ACETAMINOPHEN 325MG TABLET PO PRN (05:34)
[2017-04-07] MEDS: COLISTIMETHATE SODIUM 150MG/VIAL INH SCH (08:46)
[2017-04-07] MEDS: NITROGLYCERIN OINT 1GM/INCH UDPKT TD SCH (08:53)
[2017-04-07] MEDS: AMIKACIN 500MG in SODIUM CHLORIDE 0.9% 100ML IV SCH (08:53)
[2017-04-07] MEDS: DOCUSATE SODIUM SUGAR FREE 100MG/10ML UDC GT SCH ×2 (08:53→17:18)
[2017-04-07] MEDS: FAMOTIDINE 20MG/2ML VIAL IV SCH ×2 (08:53→21:17)
[2017-04-07] MEDS: IRON SUCROSE COMPLEX 100 MG/5 ML ML IV SCH (12:15)
[2017-04-07] MEDS: ASCORBIC ACID 250 MG TABLET GT SCH (21:17)
[2017-04-07] MEDS: INSULIN DETEMIR UD 100 UNITS/ML SYR SUBCUT SCH (21:18)
[2017-04-07] MEDS: VANCOMYCIN 1 G PREMIX 200 ML IV SCH (23:41)
[2017-04-08] VITALS (12 sets, daily range): BP systolic 103–172; BP diastolic 45–85
[2017-04-08] MEDS: IPRATROPIUM/ALBUTEROL 0.5-3(2.5)MG/3ML NEB HHN SCH ×6 (00:21→20:41)
[2017-04-08] MEDS: GUAIFENESIN 200MG/10ML SUGAR FREE UDC PO SCH ×6 (01:17→21:13)
[2017-04-08] MEDS: AMIKACIN 500MG in SODIUM CHLORIDE 0.9% 100ML IV SCH (01:17)
[2017-04-08] MEDS: HYDRALAZINE 20MG/ML VIAL IV SCH ×3 (05:10→18:00)
[2017-04-08] MEDS: INSULIN LISPRO 100 UNITS/ML SUBCUT SCH ×3 (05:10→18:09)
[2017-04-08] MEDS: BLOOD SUGAR DIAGNOSTIC STRIP TEST SCH ×3 (05:16→17:32)
[2017-04-08 06:12] LABS: BASOPHILS % 1.3 % (0.0-2.0); EOSINOPHILS % 1.9 % (0.0-5.0); HEMATOCRIT. 22.7 % (36.0-48.0); HEMOGLOBIN. 7.5 g/dL (12.0-16.0); LYMPHOCYTES % 25.1 % (20.0-50.0); MEAN CORPUSCULAR HEMOGLOBIN 28.5 pg (28.0-32.0); MEAN CORPUSCULAR VOLUME 86.1 fL (81.0-99.0); MEAN PLATELET VOLUME 8.1 fl (7.4-10.4); MONOCYTES % 12.7 % (2.0-8.0); PLATELET 688 x1000/uL (130-400); RED BLOOD CELL COUNT 2.64 mill/uL (4.2-5.4); RED CELL DISTRIBUTION WIDTH 17.8 % (11.6-14.6)
[2017-04-08 07:00] LABS: CARBON DIOXIDE 24 mEq/L (21-32); CHLORIDE 104 mEq/L (98-107)
[2017-04-08] MEDS: ASCORBIC ACID 250 MG TABLET GT SCH ×2 (08:24→21:13)
[2017-04-08] MEDS: ZINC SULFATE 220 MG ( 50 ) CAPSULE GT SCH (08:24)
[2017-04-08] MEDS: IRON SUCROSE COMPLEX 100 MG/5 ML ML IV SCH (08:24)
[2017-04-08] MEDS: MULTIVITAMINS,THER W-MINERALS TABLET GT SCH (08:24)
[2017-04-08] MEDS: DOCUSATE SODIUM SUGAR FREE 100MG/10ML UDC GT SCH ×2 (08:24→16:20)
[2017-04-08] MEDS: FAMOTIDINE 20MG/2ML VIAL IV SCH ×2 (08:24→21:13)
[2017-04-08] MEDS: NITROGLYCERIN OINT 1GM/INCH UDPKT TD SCH (08:26)
[2017-04-08] MEDS: COLISTIMETHATE SODIUM 150MG/VIAL INH SCH (15:53)
[2017-04-08] MEDS: METOCLOPRAMIDE HCL 10MG/2ML VIAL IV SCH (17:31)
[2017-04-08] MEDS: AMIKACIN SULFATE 750 MG in SODIUM CHLORIDE 0.9% 100 ML IV SCH (20:37)
[2017-04-08] MEDS: ENOXAPARIN 30MG/0.3ML SYR SUBCUT SCH (21:14)
[2017-04-08] MEDS: DIPHENHYDRAMINE 50MG/ML VIAL IV PRN (21:14)
[2017-04-09] VITALS (12 sets, daily range): BP systolic 96–148; BP diastolic 41–69
[2017-04-09] MEDS: METOCLOPRAMIDE HCL 10MG/2ML VIAL IV SCH ×5 (00:08→23:08)
[2017-04-09] MEDS: BLOOD SUGAR DIAGNOSTIC STRIP TEST SCH ×5 (00:09→23:14)
[2017-04-09] MEDS: HYDRALAZINE 20MG/ML VIAL IV SCH ×5 (00:09→23:09)
[2017-04-09] MEDS: GUAIFENESIN 200MG/10ML SUGAR FREE UDC PO SCH ×6 (00:22→21:04)
[2017-04-09] MEDS: IPRATROPIUM/ALBUTEROL 0.5-3(2.5)MG/3ML NEB HHN SCH ×7 (00:28→23:26)
[2017-04-09] MEDS: INSULIN DETEMIR UD 100 UNITS/ML SYR SUBCUT SCH ×2 (04:24→23:06)
[2017-04-09] MEDS: COLISTIMETHATE SODIUM 150MG/VIAL INH SCH ×3 (04:54→17:00)
[2017-04-09] MEDS: INSULIN LISPRO 100 UNITS/ML SUBCUT SCH ×5 (06:28→23:51)
[2017-04-09 06:34] LABS: BASOPHILS % 0.8 % (0.0-2.0); EOSINOPHILS % 1.4 % (0.0-5.0); HEMATOCRIT. 22.5 % (36.0-48.0); HEMOGLOBIN. 7.2 g/dL (12.0-16.0); LYMPHOCYTES % 31.2 % (20.0-50.0); MEAN CORPUSCULAR HEMOGLOBIN 27.8 pg (28.0-32.0); MEAN CORPUSCULAR VOLUME 87.4 fL (81.0-99.0); MEAN PLATELET VOLUME 8.5 fl (7.4-10.4); MONOCYTES % 13.3 % (2.0-8.0); NEUTROPHILS % 53.3 % (40.0-76.0); PLATELET 618 x1000/uL (130-400); RED BLOOD CELL COUNT 2.58 mill/uL (4.2-5.4); RED CELL DISTRIBUTION WIDTH 17.9 % (11.6-14.6)
[2017-04-09 07:00] LABS: CARBON DIOXIDE 22 mEq/L (21-32); CHLORIDE 104 mEq/L (98-107)
[2017-04-09] MEDS: NITROGLYCERIN OINT 1GM/INCH UDPKT TD SCH (09:00)
[2017-04-09] MEDS: ENOXAPARIN 30MG/0.3ML SYR SUBCUT SCH ×2 (09:12→21:05)
[2017-04-09] MEDS: DOCUSATE SODIUM SUGAR FREE 100MG/10ML UDC GT SCH ×2 (09:13→17:57)
[2017-04-09] MEDS: FAMOTIDINE 20MG/2ML VIAL IV SCH ×2 (09:14→21:05)
[2017-04-09] MEDS: ZINC SULFATE 220 MG ( 50 ) CAPSULE GT SCH (09:14)
[2017-04-09] MEDS: IRON SUCROSE COMPLEX 100 MG/5 ML ML IV SCH (09:14)
[2017-04-09] MEDS: MULTIVITAMINS,THER W-MINERALS TABLET GT SCH (09:14)
[2017-04-09] MEDS: ASCORBIC ACID 250 MG TABLET GT SCH ×2 (12:38→21:04)
[2017-04-09] MEDS: AMIKACIN SULFATE 750 MG in SODIUM CHLORIDE 0.9% 100 ML IV SCH (21:04)
[2017-04-09] MEDS: DIPHENHYDRAMINE 50MG/ML VIAL IV PRN (21:05)
[2017-04-09] MEDS: ACETAMINOPHEN 325MG TABLET PO PRN (21:05)
[2017-04-10] VITALS (12 sets, daily range): BP systolic 116–148; BP diastolic 50–79
[2017-04-10] MEDS: GUAIFENESIN 200MG/10ML SUGAR FREE UDC PO SCH ×6 (00:58→21:37)
[2017-04-10] MEDS: IPRATROPIUM/ALBUTEROL 0.5-3(2.5)MG/3ML NEB HHN SCH ×5 (03:33→20:25)
[2017-04-10] MEDS: METOCLOPRAMIDE HCL 10MG/2ML VIAL IV SCH ×4 (05:45→23:13)
[2017-04-10] MEDS: HYDRALAZINE 20MG/ML VIAL IV SCH ×4 (05:45→23:14)
[2017-04-10] MEDS: INSULIN LISPRO 100 UNITS/ML SUBCUT SCH ×4 (05:47→23:15)
[2017-04-10 06:43] LABS: CARBON DIOXIDE 23 mEq/L (21-32); CHLORIDE 104 mEq/L (98-107)
[2017-04-10 07:56] LABS: HEMATOCRIT. 24.5 % (36.0-48.0); HEMOGLOBIN. 7.7 g/dL (12.0-16.0); MEAN CORPUSCULAR HEMOGLOBIN 28.1 pg (28.0-32.0); MEAN CORPUSCULAR VOLUME 89.3 fL (81.0-99.0); MEAN PLATELET VOLUME 8.8 fl (7.4-10.4); PLATELET 615 x1000/uL (130-400); RED BLOOD CELL COUNT 2.74 mill/uL (4.2-5.4); RED CELL DISTRIBUTION WIDTH 18.2 % (11.6-14.6)
[2017-04-10] MEDS: DOCUSATE SODIUM SUGAR FREE 100MG/10ML UDC GT SCH ×2 (08:43→17:09)
[2017-04-10] MEDS: CLONIDINE HCL 0.2MG/24HR PATCH TD SCH (08:43)
[2017-04-10] MEDS: ENOXAPARIN 30MG/0.3ML SYR SUBCUT SCH ×2 (08:43→21:37)
[2017-04-10] MEDS: ASCORBIC ACID 250 MG TABLET GT SCH ×2 (08:44→21:37)
[2017-04-10] MEDS: FAMOTIDINE 20MG/2ML VIAL IV SCH ×2 (08:44→21:37)
[2017-04-10] MEDS: NITROGLYCERIN OINT 1GM/INCH UDPKT TD SCH (08:44)
[2017-04-10] MEDS: ZINC SULFATE 220 MG ( 50 ) CAPSULE GT SCH (08:44)
[2017-04-10] MEDS: MULTIVITAMINS,THER W-MINERALS TABLET GT SCH (08:53)
[2017-04-10] MEDS: BLOOD SUGAR DIAGNOSTIC STRIP TEST SCH ×3 (12:46→23:14)
[2017-04-10] MEDS: COLISTIMETHATE SODIUM 150MG/VIAL INH SCH (16:07)
[2017-04-10 17:21] LABS: PLATELET ESTIMATE INCREASED
[2017-04-10] MEDS: AMIKACIN SULFATE 750 MG in SODIUM CHLORIDE 0.9% 100 ML IV SCH (21:37)
[2017-04-10] MEDS: INSULIN DETEMIR UD 100 UNITS/ML SYR SUBCUT SCH (23:12)
[2017-04-11] VITALS (13 sets, daily range): BP systolic 98–136; BP diastolic 46–68
[2017-04-11] MEDS: IPRATROPIUM/ALBUTEROL 0.5-3(2.5)MG/3ML NEB HHN SCH ×6 (00:25→21:25)
[2017-04-11] MEDS: GUAIFENESIN 200MG/10ML SUGAR FREE UDC PO SCH ×6 (01:17→20:44)
[2017-04-11] MEDS: METOCLOPRAMIDE HCL 10MG/2ML VIAL IV SCH ×4 (05:33→23:12)
[2017-04-11] MEDS: INSULIN LISPRO 100 UNITS/ML SUBCUT SCH ×4 (05:33→23:10)
[2017-04-11] MEDS: BLOOD SUGAR DIAGNOSTIC STRIP TEST SCH ×4 (05:34→23:14)
[2017-04-11] MEDS: HYDRALAZINE 20MG/ML VIAL IV SCH ×4 (05:34→23:13)
[2017-04-11 07:17] LABS: BASOPHILS % 1.3 % (0.0-2.0); EOSINOPHILS % 2.2 % (0.0-5.0); LYMPHOCYTES % 19.8 % (20.0-50.0); MEAN CORPUSCULAR HEMOGLOBIN 27.6 pg (28.0-32.0); MEAN CORPUSCULAR VOLUME 87.7 fL (81.0-99.0); MEAN PLATELET VOLUME 8.4 fl (7.4-10.4); MONOCYTES % 11.9 % (2.0-8.0); NEUTROPHILS % 64.8 % (40.0-76.0); PLATELET 539 x1000/uL (130-400); RED BLOOD CELL COUNT 2.51 mill/uL (4.2-5.4); RED CELL DISTRIBUTION WIDTH 18.3 % (11.6-14.6)
[2017-04-11 07:27] LABS: HEMOGLOBIN. 6.9 g/dL (12.0-16.0)
[2017-04-11 08:05] LABS: CARBON DIOXIDE 23 mEq/L (21-32); CHLORIDE 104 mEq/L (98-107)
[2017-04-11] MEDS: ENOXAPARIN 30MG/0.3ML SYR SUBCUT SCH ×2 (09:00→21:00)
[2017-04-11] MEDS: DOCUSATE SODIUM SUGAR FREE 100MG/10ML UDC GT SCH ×2 (09:16→17:39)
[2017-04-11] MEDS: ZINC SULFATE 220 MG ( 50 ) CAPSULE GT SCH (09:16)
[2017-04-11] MEDS: MULTIVITAMINS,THER W-MINERALS TABLET GT SCH (09:16)
[2017-04-11] MEDS: ASCORBIC ACID 250 MG TABLET GT SCH ×2 (09:17→20:44)
[2017-04-11] MEDS: FAMOTIDINE 20MG/2ML VIAL IV SCH ×2 (09:17→20:44)
[2017-04-11] MEDS: NITROGLYCERIN OINT 1GM/INCH UDPKT TD SCH (09:21)
[2017-04-11] MEDS: IRON SUCROSE COMPLEX 100 MG/5 ML ML IV SCH (11:41)
[2017-04-11] MEDS: COLISTIMETHATE SODIUM 150MG/VIAL INH SCH (16:06)
[2017-04-11] MEDS: INSULIN DETEMIR UD 100 UNITS/ML SYR SUBCUT SCH (23:12)
[2017-04-12] VITALS (11 sets, daily range): BP systolic 94–126; BP diastolic 46–71
[2017-04-12] MEDS: IPRATROPIUM/ALBUTEROL 0.5-3(2.5)MG/3ML NEB HHN SCH ×6 (00:20→20:30)
[2017-04-12] MEDS: GUAIFENESIN 200MG/10ML SUGAR FREE UDC PO SCH ×6 (01:01→21:07)
[2017-04-12] MEDS: COLISTIMETHATE SODIUM 150MG/VIAL INH SCH ×2 (04:25→16:32)
[2017-04-12] MEDS: HYDRALAZINE 20MG/ML VIAL IV SCH ×4 (05:50→23:13)
[2017-04-12] MEDS: METOCLOPRAMIDE HCL 10MG/2ML VIAL IV SCH ×4 (05:50→23:17)
[2017-04-12] MEDS: INSULIN LISPRO 100 UNITS/ML SUBCUT SCH ×4 (05:52→23:18)
[2017-04-12] MEDS: BLOOD SUGAR DIAGNOSTIC STRIP TEST SCH ×4 (05:52→23:19)
[2017-04-12] MEDS: ENOXAPARIN 30MG/0.3ML SYR SUBCUT SCH ×2 (08:26→21:08)
[2017-04-12] MEDS: DOCUSATE SODIUM SUGAR FREE 100MG/10ML UDC GT SCH ×2 (08:26→17:45)
[2017-04-12] MEDS: ASCORBIC ACID 250 MG TABLET GT SCH ×2 (08:51→21:07)
[2017-04-12] MEDS: IRON SUCROSE COMPLEX 100 MG/5 ML ML IV SCH (08:51)
[2017-04-12] MEDS: ZINC SULFATE 220 MG ( 50 ) CAPSULE GT SCH (08:51)
[2017-04-12] MEDS: FAMOTIDINE 20MG/2ML VIAL IV SCH ×2 (08:51→21:07)
[2017-04-12] MEDS: MULTIVITAMINS,THER W-MINERALS TABLET GT SCH (08:51)
[2017-04-12] MEDS: NITROGLYCERIN OINT 1GM/INCH UDPKT TD SCH (08:53)
[2017-04-12 09:36] LABS: BASOPHILS % 0.8 % (0.0-2.0); HEMATOCRIT. 22.5 % (36.0-48.0); HEMOGLOBIN. 7.1 g/dL (12.0-16.0); LYMPHOCYTES % 23.8 % (20.0-50.0); MEAN CORPUSCULAR VOLUME 88.5 fL (81.0-99.0); MEAN PLATELET VOLUME 8.8 fl (7.4-10.4); MONOCYTES % 10.5 % (2.0-8.0); NEUTROPHILS % 62.9 % (40.0-76.0); PLATELET 262 x1000/uL (130-400); RED BLOOD CELL COUNT 2.54 mill/uL (4.2-5.4); RED CELL DISTRIBUTION WIDTH 18.5 % (11.6-14.6)
[2017-04-12 10:01] LABS: CARBON DIOXIDE 23 mEq/L (21-32); CHLORIDE 104 mEq/L (98-107)
[2017-04-12] MEDS: INSULIN DETEMIR UD 100 UNITS/ML SYR SUBCUT SCH (23:19)
[2017-04-13] VITALS (13 sets, daily range): BP systolic 103–136; BP diastolic 53–70
[2017-04-13] MEDS: IPRATROPIUM/ALBUTEROL 0.5-3(2.5)MG/3ML NEB HHN SCH ×5 (00:26→20:32)
[2017-04-13] MEDS: GUAIFENESIN 200MG/10ML SUGAR FREE UDC PO SCH ×6 (01:39→21:30)
[2017-04-13] MEDS: COLISTIMETHATE SODIUM 150MG/VIAL INH SCH (04:26)
[2017-04-13] MEDS: HYDRALAZINE 20MG/ML VIAL IV SCH ×3 (05:21→17:29)
[2017-04-13] MEDS: METOCLOPRAMIDE HCL 10MG/2ML VIAL IV SCH ×3 (05:48→17:29)
[2017-04-13] MEDS: INSULIN LISPRO 100 UNITS/ML SUBCUT SCH ×3 (05:49→17:31)
[2017-04-13] MEDS: BLOOD SUGAR DIAGNOSTIC STRIP TEST SCH ×3 (05:49→17:17)
[2017-04-13] MEDS: NITROGLYCERIN OINT 1GM/INCH UDPKT TD SCH (09:00)
[2017-04-13] MEDS: FAMOTIDINE 20MG/2ML VIAL IV SCH ×2 (09:19→21:23)
[2017-04-13] MEDS: IRON SUCROSE COMPLEX 100 MG/5 ML ML IV SCH (09:19)
[2017-04-13] MEDS: DOCUSATE SODIUM SUGAR FREE 100MG/10ML UDC GT SCH ×2 (09:19→17:29)
[2017-04-13] MEDS: ENOXAPARIN 30MG/0.3ML SYR SUBCUT SCH ×2 (09:20→21:30)
[2017-04-13] MEDS: MULTIVITAMINS,THER W-MINERALS TABLET GT SCH (09:20)
[2017-04-13] MEDS: ASCORBIC ACID 250 MG TABLET GT SCH ×2 (09:20→21:23)
[2017-04-13] MEDS: ZINC SULFATE 220 MG ( 50 ) CAPSULE GT SCH (10:57)
[2017-04-13] MEDS: INSULIN DETEMIR UD 100 UNITS/ML SYR SUBCUT SCH (21:38)
[2017-04-14] VITALS (12 sets, daily range): BP systolic 90–134; BP diastolic 47–64
[2017-04-14] MEDS: METOCLOPRAMIDE HCL 10MG/2ML VIAL IV SCH ×4 (00:03→18:03)
[2017-04-14] MEDS: COLISTIMETHATE SODIUM 150MG/VIAL INH SCH (00:06)
[2017-04-14] MEDS: IPRATROPIUM/ALBUTEROL 0.5-3(2.5)MG/3ML NEB HHN SCH ×6 (00:07→20:02)
[2017-04-14] MEDS: INSULIN LISPRO 100 UNITS/ML SUBCUT SCH ×5 (00:29→17:48)
[2017-04-14] MEDS: GUAIFENESIN 200MG/10ML SUGAR FREE UDC PO SCH ×6 (02:28→21:23)
[2017-04-14] MEDS: BLOOD SUGAR DIAGNOSTIC STRIP TEST SCH ×4 (06:00→17:48)
[2017-04-14] MEDS: HYDRALAZINE 20MG/ML VIAL IV SCH ×4 (06:14→18:03)
[2017-04-14] MEDS: DOCUSATE SODIUM SUGAR FREE 100MG/10ML UDC GT SCH ×2 (09:04→18:03)
[2017-04-14] MEDS: ASCORBIC ACID 250 MG TABLET GT SCH ×2 (09:04→21:23)
[2017-04-14] MEDS: FAMOTIDINE 20MG/2ML VIAL IV SCH ×2 (09:04→21:22)
[2017-04-14] MEDS: MULTIVITAMINS,THER W-MINERALS TABLET GT SCH (09:04)
[2017-04-14] MEDS: ZINC SULFATE 220 MG ( 50 ) CAPSULE GT SCH (09:04)
[2017-04-14] MEDS: NITROGLYCERIN OINT 1GM/INCH UDPKT TD SCH (09:05)
[2017-04-14] MEDS: ENOXAPARIN 30MG/0.3ML SYR SUBCUT SCH (09:05)
[2017-04-14] MEDS: INSULIN DETEMIR UD 100 UNITS/ML SYR SUBCUT SCH (22:27)
[2017-04-15] VITALS (12 sets, daily range): BP systolic 98–141; BP diastolic 47–71
[2017-04-15] MEDS: IPRATROPIUM/ALBUTEROL 0.5-3(2.5)MG/3ML NEB HHN SCH ×6 (00:07→20:44)
[2017-04-15] MEDS: METOCLOPRAMIDE HCL 10MG/2ML VIAL IV SCH ×4 (00:46→17:22)
[2017-04-15] MEDS: GUAIFENESIN 200MG/10ML SUGAR FREE UDC PO SCH ×6 (02:08→21:04)
[2017-04-15] MEDS: INSULIN LISPRO 100 UNITS/ML SUBCUT SCH ×4 (02:10→17:23)
[2017-04-15] MEDS: BLOOD SUGAR DIAGNOSTIC STRIP TEST SCH ×4 (05:46→17:09)
[2017-04-15] MEDS: HYDRALAZINE 20MG/ML VIAL IV SCH ×4 (06:12→17:22)
[2017-04-15 06:46] LABS: BASOPHILS % 0.3 % (0.0-2.0); EOSINOPHILS % 2.1 % (0.0-5.0); HEMATOCRIT. 23.8 % (36.0-48.0); HEMOGLOBIN. 7.6 g/dL (12.0-16.0); LYMPHOCYTES % 28.9 % (20.0-50.0); MEAN CORPUSCULAR HEMOGLOBIN 28.6 pg (28.0-32.0); MEAN CORPUSCULAR VOLUME 89.9 fL (81.0-99.0); MEAN PLATELET VOLUME 8.1 fl (7.4-10.4); NEUTROPHILS % 57.7 % (40.0-76.0); PLATELET 489 x1000/uL (130-400); RED BLOOD CELL COUNT 2.65 mill/uL (4.2-5.4); RED CELL DISTRIBUTION WIDTH 19.5 % (11.6-14.6)
[2017-04-15 07:15] LABS: CARBON DIOXIDE 21 mEq/L (21-32); CHLORIDE 105 mEq/L (98-107)
[2017-04-15] MEDS: ZINC SULFATE 220 MG ( 50 ) CAPSULE GT SCH (08:51)
[2017-04-15] MEDS: DOCUSATE SODIUM SUGAR FREE 100MG/10ML UDC GT SCH ×2 (08:51→17:22)
[2017-04-15] MEDS: NITROGLYCERIN OINT 1GM/INCH UDPKT TD SCH (08:51)
[2017-04-15] MEDS: FAMOTIDINE 20MG/2ML VIAL IV SCH ×2 (08:51→21:04)
[2017-04-15] MEDS: ENOXAPARIN 40MG/0.4ML SYR SUBCUT SCH (08:51)
[2017-04-15] MEDS: ASCORBIC ACID 250 MG TABLET GT SCH ×2 (08:52→21:04)
[2017-04-15] MEDS: MULTIVITAMINS,THER W-MINERALS TABLET GT SCH (08:52)
[2017-04-16] VITALS (12 sets, daily range): BP systolic 98–141; BP diastolic 46–65
[2017-04-16] MEDS: IPRATROPIUM/ALBUTEROL 0.5-3(2.5)MG/3ML NEB HHN SCH ×7 (00:02→23:54)
[2017-04-16] MEDS: HYDRALAZINE 20MG/ML VIAL IV SCH ×5 (00:07→23:29)
[2017-04-16] MEDS: METOCLOPRAMIDE HCL 10MG/2ML VIAL IV SCH ×5 (00:07→23:29)
[2017-04-16] MEDS: GUAIFENESIN 200MG/10ML SUGAR FREE UDC PO SCH ×6 (00:07→21:19)
[2017-04-16] MEDS: INSULIN DETEMIR UD 100 UNITS/ML SYR SUBCUT SCH ×2 (00:08→22:16)
[2017-04-16] MEDS: BLOOD SUGAR DIAGNOSTIC STRIP TEST SCH ×5 (00:08→23:30)
[2017-04-16] MEDS: INSULIN LISPRO 100 UNITS/ML SUBCUT SCH ×5 (00:19→23:30)
[2017-04-16 06:25] LABS: BASOPHILS % 0.4 % (0.0-2.0); EOSINOPHILS % 1.9 % (0.0-5.0); HEMATOCRIT. 24.3 % (36.0-48.0); HEMOGLOBIN. 7.7 g/dL (12.0-16.0); LYMPHOCYTES % 18.8 % (20.0-50.0); MEAN CORPUSCULAR HEMOGLOBIN 28.5 pg (28.0-32.0); MEAN CORPUSCULAR VOLUME 89.5 fL (81.0-99.0); MEAN PLATELET VOLUME 7.8 fl (7.4-10.4); MONOCYTES % 11.2 % (2.0-8.0); NEUTROPHILS % 67.7 % (40.0-76.0); PLATELET 452 x1000/uL (130-400); RED BLOOD CELL COUNT 2.71 mill/uL (4.2-5.4); RED CELL DISTRIBUTION WIDTH 19.9 % (11.6-14.6)
[2017-04-16 07:38] LABS: CARBON DIOXIDE 23 mEq/L (21-32); CHLORIDE 104 mEq/L (98-107); CREATINE KINASE 34 IU/L (26-192)
[2017-04-16] MEDS: DOCUSATE SODIUM SUGAR FREE 100MG/10ML UDC GT SCH ×2 (08:52→18:35)
[2017-04-16] MEDS: FAMOTIDINE 20MG/2ML VIAL IV SCH ×2 (08:52→21:20)
[2017-04-16] MEDS: MULTIVITAMINS,THER W-MINERALS TABLET GT SCH (08:52)
[2017-04-16] MEDS: ZINC SULFATE 220 MG ( 50 ) CAPSULE GT SCH (08:52)
[2017-04-16] MEDS: NITROGLYCERIN OINT 1GM/INCH UDPKT TD SCH ×2 (08:54→11:07)
[2017-04-16] MEDS: ENOXAPARIN 40MG/0.4ML SYR SUBCUT SCH (08:55)
[2017-04-16] MEDS: ASCORBIC ACID 250 MG TABLET GT SCH ×2 (08:56→21:20)
[2017-04-17] VITALS (12 sets, daily range): BP systolic 103–145; BP diastolic 43–66
[2017-04-17] MEDS: GUAIFENESIN 200MG/10ML SUGAR FREE UDC PO SCH ×6 (00:52→21:37)
[2017-04-17] MEDS: IPRATROPIUM/ALBUTEROL 0.5-3(2.5)MG/3ML NEB HHN SCH ×5 (03:12→20:41)
[2017-04-17] MEDS: INSULIN LISPRO 100 UNITS/ML SUBCUT SCH ×4 (06:00→23:26)
[2017-04-17] MEDS: HYDRALAZINE 20MG/ML VIAL IV SCH ×4 (06:01→23:18)
[2017-04-17] MEDS: BLOOD SUGAR DIAGNOSTIC STRIP TEST SCH ×3 (06:01→23:18)
[2017-04-17] MEDS: METOCLOPRAMIDE HCL 10MG/2ML VIAL IV SCH ×4 (06:01→23:16)
[2017-04-17 06:47] LABS: BASOPHILS % 0.6 % (0.0-2.0); EOSINOPHILS % 2.5 % (0.0-5.0); HEMOGLOBIN. 7.9 g/dL (12.0-16.0); LYMPHOCYTES % 23.8 % (20.0-50.0); MEAN CORPUSCULAR HEMOGLOBIN 28.5 pg (28.0-32.0); MEAN CORPUSCULAR VOLUME 89.7 fL (81.0-99.0); MEAN PLATELET VOLUME 8.2 fl (7.4-10.4); MONOCYTES % 11.9 % (2.0-8.0); NEUTROPHILS % 61.2 % (40.0-76.0); PLATELET 463 x1000/uL (130-400); RED BLOOD CELL COUNT 2.79 mill/uL (4.2-5.4); RED CELL DISTRIBUTION WIDTH 20.6 % (11.6-14.6)
[2017-04-17 06:51] LABS: CARBON DIOXIDE 23 mEq/L (21-32); CHLORIDE 103 mEq/L (98-107)
[2017-04-17] MEDS: ZINC SULFATE 220 MG ( 50 ) CAPSULE GT SCH (08:57)
[2017-04-17] MEDS: ASCORBIC ACID 250 MG TABLET GT SCH ×2 (08:57→21:37)
[2017-04-17] MEDS: DOCUSATE SODIUM SUGAR FREE 100MG/10ML UDC GT SCH ×2 (08:57→17:16)
[2017-04-17] MEDS: FAMOTIDINE 20MG/2ML VIAL IV SCH ×2 (08:58→21:37)
[2017-04-17] MEDS: MULTIVITAMINS,THER W-MINERALS TABLET GT SCH (08:58)
[2017-04-17] MEDS: ENOXAPARIN 40MG/0.4ML SYR SUBCUT SCH (08:58)
[2017-04-17] MEDS: CLONIDINE HCL 0.2MG/24HR PATCH TD SCH (08:59)
[2017-04-17] MEDS: NITROGLYCERIN OINT 1GM/INCH UDPKT TD SCH (09:00)
[2017-04-17] MEDS: INSULIN DETEMIR UD 100 UNITS/ML SYR SUBCUT SCH (23:26)
[2017-04-18] VITALS (11 sets, daily range): BP systolic 94–141; BP diastolic 33–71
[2017-04-18] MEDS: IPRATROPIUM/ALBUTEROL 0.5-3(2.5)MG/3ML NEB HHN SCH ×5 (01:41→16:18)
[2017-04-18] MEDS: GUAIFENESIN 200MG/10ML SUGAR FREE UDC PO SCH ×5 (03:17→18:05)
[2017-04-18] MEDS: HYDRALAZINE 20MG/ML VIAL IV SCH ×3 (05:53→18:11)
[2017-04-18] MEDS: METOCLOPRAMIDE HCL 10MG/2ML VIAL IV SCH ×3 (06:00→18:06)
[2017-04-18] MEDS: BLOOD SUGAR DIAGNOSTIC STRIP TEST SCH ×3 (06:00→18:00)
[2017-04-18] MEDS: INSULIN LISPRO 100 UNITS/ML SUBCUT SCH ×3 (06:06→18:00)
[2017-04-18] MEDS: NITROGLYCERIN OINT 1GM/INCH UDPKT TD SCH (09:28)
[2017-04-18] MEDS: MULTIVITAMINS,THER W-MINERALS TABLET GT SCH (09:28)
[2017-04-18] MEDS: DOCUSATE SODIUM SUGAR FREE 100MG/10ML UDC GT SCH (09:28)
[2017-04-18] MEDS: FAMOTIDINE 20MG/2ML VIAL IV SCH (09:28)
[2017-04-18] MEDS: ZINC SULFATE 220 MG ( 50 ) CAPSULE GT SCH (09:28)
[2017-04-18] MEDS: ENOXAPARIN 40MG/0.4ML SYR SUBCUT SCH (09:29)
[2017-04-18] MEDS: ASCORBIC ACID 250 MG TABLET GT SCH (09:39)
== END 2017-04-18 20:20 | DRG 3 ==
LOC: ER 04:41 → SUPCPDRO 06:43 → MICUNO 06:49 → EDBEDREQSVC 07:08 → ENRESERV 07:52 → 5EST 04-03 13:26
PROVIDERS: ADMIT Internal Medicine; ATTEND Internal Medicine
PROC: 5A1955Z Respiratory Ventilation, Greater than 96 Consecutive Hours (ICD-10-PCS; principal; 2017-03-22)
PROC: 0GBH0ZZ Excision of Right Thyroid Gland Lobe, Open Approach (ICD-10-PCS; 2017-04-01)
PROC: 0B110F4 Bypass Trachea to Cutaneous with Tracheostomy Device, Open Approach (ICD-10-PCS; 2017-04-01)
PROC: 02HV33Z Insertion of Infusion Device into Superior Vena Cava, Percutaneous Approach (ICD-10-PCS; 2017-04-02)
PROC: B548ZZA Ultrasonography of Superior Vena Cava, Guidance (ICD-10-PCS; 2017-04-02)
PROC: 0BJ08ZZ Inspection of Tracheobronchial Tree, Via Natural or Artificial Opening Endoscopic (ICD-10-PCS; 2017-04-04)
PROC: 0D20XUZ Change Feeding Device in Upper Intestinal Tract, External Approach (ICD-10-PCS; 2017-04-04)
DX: A41.51 Sepsis due to Escherichia coli [E. coli] (principal); R65.21 Severe sepsis with septic shock; J15.1 Pneumonia due to Pseudomonas; E43 Unspecified severe protein-calorie malnutrition; J15.212 Pneumonia due to Methicillin resistant Staphylococcus aureus; G93.41 Metabolic encephalopathy; L89.309 Pressure ulcer of unspecified buttock, unspecified stage; J96.20 Acute and chronic respiratory failure, unspecified whether with hypoxia or hypercapnia; E11.621 Type 2 diabetes mellitus with foot ulcer; J96.00 Acute respiratory failure, unspecified whether with hypoxia or hypercapnia; N39.0 Urinary tract infection, site not specified; E87.1 Hypo-osmolality and hyponatremia; J98.11 Atelectasis; Z99.11 Dependence on respirator [ventilator] status; K94.23 Gastrostomy malfunction; F03.90 Unspecified dementia, unspecified severity, without behavioral disturbance, psychotic disturbance, mood disturbance, and anxiety; E83.52 Hypercalcemia; E11.65 Type 2 diabetes mellitus with hyperglycemia; D50.9 Iron deficiency anemia, unspecified; I10 Essential (primary) hypertension; I25.10 Atherosclerotic heart disease of native coronary artery without angina pectoris; K59.00 Constipation, unspecified; L89.609 Pressure ulcer of unspecified heel, unspecified stage; R13.10 Dysphagia, unspecified; Z79.4 Long term (current) use of insulin; Z86.14 Personal history of Methicillin resistant Staphylococcus aureus infection; Z88.0 Allergy status to penicillin; Z88.6 Allergy status to analgesic agent; Z88.8 Allergy status to other drugs, medicaments and biological substances; Z68.26 Body mass index [BMI] 26.0-26.9, adult
CPT/HCPCS: 36415; 36569; 36600; 70450; 71010; 71250; 76937; 80048; 80053; 80061; 80076; 80150; 80202; 81001; 82270; 82330; 82375; 82550; 82553; 82607; 82728; 82746; 82805; 82962; 83036; 83540; 83550; 83605; 83690; 84478; 84484; 85025; 85610; 85651; 85730; 86140; 87040; 87070; 87077; 87086; 87186; 87205; 93005; 93306; 93970; 94002; 94003; 94640; 94664; 99285; A4216; A6261; C1725; J0171; J0278; J0360; J0770; J1200; J1650; J1815; J1956; J2250; J2270; J2405; J2765; J2930; J3010; J3370; J3490; J7040; J7050; J7060; J7608; J7620

== ENCOUNTER 2017-10-07 16:55 | Inpatient (IN) | payer MEDICARE, MEDICAID ==
[~2017-10-07] VITALS: Ht 160 cm; Wt 80.3 kg
[2017-10-07 19:04] LABS: BG BASE EXCESS 3.8 mmol/L (-2.0-2.0); BG CARBOXYHEMOGLOBIN 0.1 % (0.5-1.5); BG DEOXYHEMOGLOBIN 0.8 % (0.0-5.0); BG FRACTION INSPIRED OXYGEN 50; BG HCO3 ACT 28.5 mmol/L (22.0-26.0); BG OXYGEN SATURATION 99.2 % (92.0-98.5); BG OXYHEMOGLOBIN 99.1 % (94.0-97.0); BG PCO2 44.3 mmHg (35.0-45.0); BG PH 7.427 (7.350-7.450); BG PO2 160.7 mmHg (75.0-100.0); BG SAMPLE SITE RIGHT RADIAL; BG TIDAL VOLUME(mL) 500 mL; BG TOTAL HEMOGLOBIN 8.5 g/dL (12.0-18.0); BG VENT MODE VENT - SIMV; BG VENT RATE 10 set
[2017-10-07 19:06] LABS: HEMATOCRIT. 23.8 % (36.0-48.0); HEMOGLOBIN. 7.7 g/dL (12.0-16.0); MEAN CORPUSCULAR VOLUME 89.6 fL (81.0-99.0); MEAN PLATELET VOLUME 7.9 fl (7.4-10.4); PLATELET 515 x1000/uL (130-400); RED BLOOD CELL COUNT 2.65 mill/uL (4.2-5.4); RED CELL DISTRIBUTION WIDTH 17.7 % (11.6-14.6)
[2017-10-07 19:07] LABS: CHLORIDE 93 mEq/L (98-107)
[2017-10-07 19:09] LABS: INR 1.1; PROTHROMBIN TIME 11.7 sec (9.4-11.6)
[2017-10-07 19:49] LABS: PLATELET ESTIMATE INCREASED
[2017-10-07 20:01] LABS: CLARITY URINE CLOUDY (CLEAR); COLOR URINE YELLOW (YELLOW); KETONES URINE NEGATIVE (NEGATIVE); LEUKOCYTE ESTERASE URINE 3+ (NEGATIVE); NITRITE URINE NEGATIVE (NEGATIVE); OCCULT BLOOD URINE 3+ (NEGATIVE); PH URINE 6.5 (4.5-8.0); PROTEIN URINE 2+ (NEGATIVE); UROBILINOGEN URINE 0.2 E.U./dL (0.2-1.0)
[2017-10-07] MEDS ORDERED: CEFEPIME 1,000 MG in DEXTROSE 5% WATER 50 ML IV ONE (20:15)
[2017-10-07] MEDS ORDERED: VANCOMYCIN 1 G PREMIX 200 ML IV ONE (20:15)
[2017-10-07] MEDS ORDERED: SODIUM CHLORIDE 0.9% 1,000 ML IV ONE (20:15)
[2017-10-07 22:00] VITALS: BP 122/56
[2017-10-07 22:30] VITALS: BP 122/56
[2017-10-08] VITALS (16 sets, daily range): BP systolic 94–138; BP diastolic 39–72
[2017-10-08] MEDS ORDERED: DEXTROSE 50% WATER 50ML SYRINGE IV PRN (00:15)
[2017-10-08] MEDS ORDERED: ACETAMINOPHEN 650MG/20.3ML UDC GT PRN (00:45)
[2017-10-08] MEDS: SODIUM CHLORIDE 0.9% 1,000 ML IV SCH ×3 (00:49→22:36)
[2017-10-08] MEDS: INSULIN LISPRO 100 UNITS/ML SUBCUT SCH ×4 (01:37→18:39)
[2017-10-08] MEDS: BLOOD SUGAR DIAGNOSTIC STRIP TEST SCH ×5 (06:00→23:50)
[2017-10-08 06:50] LABS: BASOPHILS % 0.2 % (0.0-2.0); EOSINOPHILS % 1.1 % (0.0-5.0); HEMOGLOBIN. 7.6 g/dL (12.0-16.0); LYMPHOCYTES % 11.3 % (20.0-50.0); MEAN CORPUSCULAR HEMOGLOBIN 29.9 pg (28.0-32.0); MEAN CORPUSCULAR VOLUME 90.6 fL (81.0-99.0); MEAN PLATELET VOLUME 8.5 fl (7.4-10.4); MONOCYTES % 8.4 % (2.0-8.0); PLATELET 468 x1000/uL (130-400); RED BLOOD CELL COUNT 2.53 mill/uL (4.2-5.4); RED CELL DISTRIBUTION WIDTH 17.6 % (11.6-14.6)
[2017-10-08] MEDS ORDERED: INSULIN LISPRO 100 UNITS/ML SUBCUT SCH ×2 (08:00)
[2017-10-08] MEDS: IPRATROPIUM/ALBUTEROL 0.5-3(2.5)MG/3ML NEB HHN PRN ×2 (08:11→11:45)
[2017-10-08] MEDS ORDERED: PANTOPRAZOLE SODIUM 40 MG/VIAL IV SCH (09:00)
[2017-10-08] MEDS: FAMOTIDINE 20MG TABLET PO SCH ×2 (11:00→21:39)
[2017-10-08] MEDS ORDERED: INSULIN GLARGINE UD 100 UNITS/ML SYR SUBCUT SCH (11:00)
[2017-10-08] MEDS ORDERED: VANCOMYCIN 750 MG PREMIX 150 ML IV SCH (12:00)
[2017-10-08] MEDS: METOCLOPRAMIDE HCL 5MG TABLET PO SCH ×3 (12:24→23:49)
[2017-10-08] MEDS: IPRATROPIUM/ALBUTEROL 0.5-3(2.5)MG/3ML NEB HHN SCH ×2 (15:13→20:16)
[2017-10-08] MEDS ORDERED: VANCOMYCIN 1,750 MG in DEXT 5% WATER 500 ML IV SCH (21:00)
[2017-10-08] MEDS: CEFEPIME 1,000 MG in DEXTROSE 5% WATER 50 ML IV SCH (21:39)
[2017-10-08] MEDS ORDERED: EPOETIN ALFA 10000UNITS/ML VIAL SUBCUT SCH (22:00)
[2017-10-08] MEDS ORDERED: IRON SUCROSE COMPLEX 100 MG/5 ML ML IV SCH ×2 (22:11→23:30)
[2017-10-09] VITALS (16 sets, daily range): BP systolic 116–160; BP diastolic 53–83
[2017-10-09] MEDS: INSULIN LISPRO 100 UNITS/ML SUBCUT SCH ×5 (00:02→23:29)
[2017-10-09] MEDS: IPRATROPIUM/ALBUTEROL 0.5-3(2.5)MG/3ML NEB HHN SCH ×4 (01:46→20:34)
[2017-10-09] MEDS: METOCLOPRAMIDE HCL 5MG TABLET PO SCH ×4 (05:32→23:28)
[2017-10-09] MEDS: BLOOD SUGAR DIAGNOSTIC STRIP TEST SCH ×4 (05:41→23:30)
[2017-10-09 07:03] LABS: BASOPHILS % 0.3 % (0.0-2.0); LYMPHOCYTES % 13.3 % (20.0-50.0); MEAN CORPUSCULAR HEMOGLOBIN 29.5 pg (28.0-32.0); MEAN CORPUSCULAR VOLUME 90.3 fL (81.0-99.0); MEAN PLATELET VOLUME 8.5 fl (7.4-10.4); NEUTROPHILS % 69.4 % (40.0-76.0); PLATELET 461 x1000/uL (130-400); RED BLOOD CELL COUNT 2.28 mill/uL (4.2-5.4); RED CELL DISTRIBUTION WIDTH 17.7 % (11.6-14.6)
[2017-10-09 07:16] LABS: CHLORIDE 104 mEq/L (98-107)
[2017-10-09 07:31] LABS: PHOSPHORUS 1.6 mg/dL (2.5-4.9)
[2017-10-09 07:51] LABS: HEMATOCRIT. 20.6 % (36.0-48.0); HEMOGLOBIN. 6.7 g/dL (12.0-16.0)
[2017-10-09] MEDS ORDERED: SODIUM PHOS,M-BASIC-D-BASIC 30 MM in DEXT 5% WATER 500 ML IV SCH (09:00)
[2017-10-09] MEDS: SODIUM CHLORIDE 0.45% 1,000 ML IV SCH (09:52)
[2017-10-09] MEDS: CARVEDILOL 6.25 MG TABLET PO SCH ×2 (09:52→21:28)
[2017-10-09] MEDS: FAMOTIDINE 20MG TABLET PO SCH ×2 (09:52→21:28)
[2017-10-09] MEDS: INSULIN GLARGINE UD 100 UNITS/ML SYR SUBCUT SCH (09:53)
[2017-10-09] MEDS: IRON SUCROSE COMPLEX 100 MG/5 ML ML IV SCH (11:52)
[2017-10-09] MEDS ORDERED: IRON SUCROSE COMPLEX 100 MG/5 ML ML IV SCH (21:00)
[2017-10-09] MEDS: CEFEPIME 1,000 MG in DEXTROSE 5% WATER 50 ML IV SCH (21:29)
[2017-10-10] VITALS (16 sets, daily range): BP systolic 108–165; BP diastolic 48–81
[2017-10-10] MEDS: IPRATROPIUM/ALBUTEROL 0.5-3(2.5)MG/3ML NEB HHN SCH ×4 (01:01→20:20)
[2017-10-10] MEDS: METOCLOPRAMIDE HCL 5MG TABLET PO SCH ×4 (05:26→23:45)
[2017-10-10] MEDS: INSULIN LISPRO 100 UNITS/ML SUBCUT SCH ×4 (05:27→23:58)
[2017-10-10] MEDS: BLOOD SUGAR DIAGNOSTIC STRIP TEST SCH ×4 (05:29→23:58)
[2017-10-10 07:13] LABS: BASOPHILS % 0.3 % (0.0-2.0); EOSINOPHILS % 7.9 % (0.0-5.0); MEAN CORPUSCULAR HEMOGLOBIN 28.7 pg (28.0-32.0); MEAN CORPUSCULAR VOLUME 89.7 fL (81.0-99.0); MEAN PLATELET VOLUME 8.6 fl (7.4-10.4); MONOCYTES % 12.3 % (2.0-8.0); NEUTROPHILS % 60.5 % (40.0-76.0); PLATELET 419 x1000/uL (130-400); RED BLOOD CELL COUNT 2.18 mill/uL (4.2-5.4); RED CELL DISTRIBUTION WIDTH 17.6 % (11.6-14.6)
[2017-10-10 07:19] LABS: HEMATOCRIT. 19.6 % (36.0-48.0); HEMOGLOBIN. 6.3 g/dL (12.0-16.0)
[2017-10-10 08:41] LABS: CHLORIDE 105 mEq/L (98-107)
[2017-10-10] MEDS: IRON SUCROSE COMPLEX 100 MG/5 ML ML IV SCH (08:42)
[2017-10-10] MEDS: SODIUM CHLORIDE 0.45% 1,000 ML IV SCH (08:42)
[2017-10-10] MEDS: FAMOTIDINE 20MG TABLET PO SCH ×2 (08:43→21:21)
[2017-10-10] MEDS: CARVEDILOL 6.25 MG TABLET PO SCH ×2 (08:43→21:21)
[2017-10-10] MEDS: INSULIN GLARGINE UD 100 UNITS/ML SYR SUBCUT SCH (08:43)
[2017-10-10 08:48] LABS: PHOSPHORUS 2.4 mg/dL (2.5-4.9)
[2017-10-10] MEDS ORDERED: INSULIN GLARGINE UD 100 UNITS/ML SYR SUBCUT SCH (10:00)
[2017-10-10] MEDS ORDERED: SODIUM CHLORIDE 0.9% IV NR (11:00)
[2017-10-10] MEDS ORDERED: POTASSIUM PHOS M BASIC D BASIC IV NR (11:00)
[2017-10-10] MEDS ORDERED: INSULIN GLARGINE UD 100 UNITS/ML SYR SUBCUT NR (13:00)
[2017-10-10] MEDS ORDERED: EPOETIN ALFA 10000UNITS/ML VIAL SUBCUT SCH (22:00)
[2017-10-10] MEDS: CEFEPIME 1,000 MG in DEXTROSE 5% WATER 50 ML IV SCH (23:58)
[2017-10-11] VITALS (19 sets, daily range): BP systolic 100–152; BP diastolic 51–76
[2017-10-11] MEDS: IPRATROPIUM/ALBUTEROL 0.5-3(2.5)MG/3ML NEB HHN SCH ×4 (01:32→20:29)
[2017-10-11] MEDS: BLOOD SUGAR DIAGNOSTIC STRIP TEST SCH ×3 (05:30→18:00)
[2017-10-11] MEDS: METOCLOPRAMIDE HCL 5MG TABLET PO SCH ×3 (05:30→19:06)
[2017-10-11] MEDS: INSULIN LISPRO 100 UNITS/ML SUBCUT SCH ×3 (05:30→19:07)
[2017-10-11] MEDS: IRON SUCROSE COMPLEX 100 MG/5 ML ML IV SCH (08:58)
[2017-10-11] MEDS: FAMOTIDINE 20MG TABLET PO SCH ×2 (08:59→21:22)
[2017-10-11] MEDS: CARVEDILOL 6.25 MG TABLET PO SCH ×2 (08:59→21:22)
[2017-10-11] MEDS: SODIUM CHLORIDE 0.45% 1,000 ML IV SCH (09:16)
[2017-10-11] MEDS ORDERED: INSULIN GLARGINE UD 100 UNITS/ML SYR SUBCUT SCH (10:00)
[2017-10-11] MEDS: CEFEPIME 1,000 MG in DEXTROSE 5% WATER 50 ML IV SCH (21:22)
== END 2017-10-11 22:11 | DRG 870 ==
LOC: ER 17:03 → 5EST 20:48 → EDBEDREQTM 20:52 → EDBEDREQ 20:52 → ENRESERV 21:05
PROVIDERS: ADMIT Internal Medicine; ATTEND Internal Medicine
PROC: 5A1955Z Respiratory Ventilation, Greater than 96 Consecutive Hours (ICD-10-PCS; principal; 2017-10-07)
DX: A41.59 Other Gram-negative sepsis (principal); J96.21 Acute and chronic respiratory failure with hypoxia; N17.0 Acute kidney failure with tubular necrosis; E11.00 Type 2 diabetes mellitus with hyperosmolarity without nonketotic hyperglycemic-hyperosmolar coma (NKHHC); E43 Unspecified severe protein-calorie malnutrition; G93.40 Encephalopathy, unspecified; L89.159 Pressure ulcer of sacral region, unspecified stage; Z99.11 Dependence on respirator [ventilator] status; E87.1 Hypo-osmolality and hyponatremia; M86.60 Other chronic osteomyelitis, unspecified site; N39.0 Urinary tract infection, site not specified; E83.39 Other disorders of phosphorus metabolism; E87.5 Hyperkalemia; E11.51 Type 2 diabetes mellitus with diabetic peripheral angiopathy without gangrene; D63.8 Anemia in other chronic diseases classified elsewhere; E11.69 Type 2 diabetes mellitus with other specified complication; K31.9 Disease of stomach and duodenum, unspecified; E11.649 Type 2 diabetes mellitus with hypoglycemia without coma; I12.9 Hypertensive chronic kidney disease with stage 1 through stage 4 chronic kidney disease, or unspecified chronic kidney disease; E83.41 Hypermagnesemia; B96.4 Proteus (mirabilis) (morganii) as the cause of diseases classified elsewhere; B96.89 Other specified bacterial agents as the cause of diseases classified elsewhere; E11.22 Type 2 diabetes mellitus with diabetic chronic kidney disease; L89.609 Pressure ulcer of unspecified heel, unspecified stage; E86.0 Dehydration; F03.90 Unspecified dementia, unspecified severity, without behavioral disturbance, psychotic disturbance, mood disturbance, and anxiety; E11.65 Type 2 diabetes mellitus with hyperglycemia; I25.10 Atherosclerotic heart disease of native coronary artery without angina pectoris; K21.9 Gastro-esophageal reflux disease without esophagitis; K27.9 Peptic ulcer, site unspecified, unspecified as acute or chronic, without hemorrhage or perforation; N18.9 Chronic kidney disease, unspecified; Z93.1 Gastrostomy status; R13.10 Dysphagia, unspecified; T36.95XA Adverse effect of unspecified systemic antibiotic, initial encounter; Z74.01 Bed confinement status; Z79.4 Long term (current) use of insulin; Z85.6 Personal history of leukemia; Z93.0 Tracheostomy status; Z86.73 Personal history of transient ischemic attack (TIA), and cerebral infarction without residual deficits; Z88.0 Allergy status to penicillin; Z87.01 Personal history of pneumonia (recurrent); Z88.5 Allergy status to narcotic agent; Z88.6 Allergy status to analgesic agent; Z68.31 Body mass index [BMI] 31.0-31.9, adult
CPT/HCPCS: 36415; 36600; 71045; 80048; 80053; 81003; 82375; 82805; 82962; 83540; 83550; 83605; 83735; 83880; 84100; 84484; 85025; 85610; 87040; 87077; 87086; 87186; 93005; 94002; 94003; 94640; 96361; 96365; 96375; 99291; A6261; J0692; J0885; J1815; J3370; J3490; J7030; J7050; J7060; J7620; J8597; A4315

== ENCOUNTER 2017-10-30 01:09 | Inpatient (IN) | payer MEDICARE, MEDICAID ==
[2017-10-30] VITALS (10 sets, daily range): BP systolic 124–154; BP diastolic 59–117
[~2017-10-30] VITALS: Ht 165.1 cm; Wt 87.3 kg
[2017-10-30 02:07] LABS: HEMATOCRIT 24.7 % (36.0-48.0); HEMOGLOBIN 7.9 g/dL (12.0-16.0); MEAN CORPUSCULAR HEMOGLOBIN 28.7 pg (28.0-32.0); MEAN CORPUSCULAR VOLUME 89.9 fL (81.0-99.0); PLATELET 545 x1000/uL (130-400); RED BLOOD CELL COUNT 2.75 mill/uL (4.2-5.4); RED CELL DISTRIBUTION WIDTH 18.6 % (11.6-14.6)
[2017-10-30 02:13] LABS: CHLORIDE 93 mEq/L (98-107)
[2017-10-30] MEDS ORDERED: IPRATROPIUM/ALBUTEROL 0.5-3(2.5)MG/3ML NEB HHN PRN ×2 (07:15)
[2017-10-30] MEDS ORDERED: COR6 MT (07:17)
[2017-10-30] MEDS ORDERED: METO-293 MT (07:19)
[2017-10-30] MEDS ORDERED: FAMO40TA70 MT (07:19)
[2017-10-30] MEDS: METOCLOPRAMIDE 10MG/10 ML UDC PO SCH ×3 (08:00→18:00)
[2017-10-30] MEDS: CARVEDILOL 6.25 MG TABLET PO SCH ×2 (09:00→21:00)
[2017-10-30] MEDS: FAMOTIDINE 20MG TABLET PO SCH (09:07)
[2017-10-30] MEDS: DEXT 5%/0.9% NACL 1,000 ML IV SCH ×2 (14:44→20:57)
[2017-10-30 16:33] LABS: BG BASE EXCESS 6.1 mmol/L (-2.0-2.0); BG CARBOXYHEMOGLOBIN 0.3 % (0.5-1.5); BG DEOXYHEMOGLOBIN 0.7 % (0.0-5.0); BG FRACTION INSPIRED OXYGEN 40; BG HCO3 ACT 30.1 mmol/L (22.0-26.0); BG METHEMOGLOBIN 0.1 % (0.0-1.5); BG OXYGEN SATURATION 99.3 % (92.0-98.5); BG OXYHEMOGLOBIN 98.9 % (94.0-97.0); BG PCO2 41.4 mmHg (35.0-45.0); BG SAMPLE SITE RIGHT BRACHIAL; BG TIDAL VOLUME(mL) 500 mL; BG TOTAL HEMOGLOBIN 9.2 g/dL (12.0-18.0); BG VENT MODE VENT - A/C; BG VENT RATE 12 set
[2017-10-30] MEDS: IPRATROPIUM BROMIDE (0.02%) 0.5MG/2.5ML NEB HHN SCH (20:34)
[2017-10-31] VITALS (12 sets, daily range): BP systolic 109–162; BP diastolic 57–88
[2017-10-31] MEDS: IPRATROPIUM BROMIDE (0.02%) 0.5MG/2.5ML NEB HHN SCH ×4 (02:16→20:22)
[2017-10-31 07:26] LABS: INR 1.2
[2017-10-31 07:38] LABS: BASOPHILS % 0.2 % (0.0-2.0); EOSINOPHILS % 2.7 % (0.0-5.0); HEMATOCRIT. 23.8 % (36.0-48.0); HEMOGLOBIN. 7.8 g/dL (12.0-16.0); LYMPHOCYTES % 18.9 % (20.0-50.0); MEAN CORPUSCULAR HEMOGLOBIN 29.7 pg (28.0-32.0); MEAN PLATELET VOLUME 8.1 fl (7.4-10.4); MONOCYTES % 11.3 % (2.0-8.0); NEUTROPHILS % 66.9 % (40.0-76.0); PLATELET 475 x1000/uL (130-400); RED BLOOD CELL COUNT 2.61 mill/uL (4.2-5.4); RED CELL DISTRIBUTION WIDTH 18.5 % (11.6-14.6)
[2017-10-31 07:48] LABS: CHLORIDE 98 mEq/L (98-107)
[2017-10-31] MEDS: DEXT 5%/0.9% NACL 1,000 ML IV SCH (08:15)
[2017-10-31] MEDS: FAMOTIDINE 20MG TABLET PO SCH (09:00)
[2017-10-31] MEDS: CARVEDILOL 6.25 MG TABLET PO SCH ×2 (09:00→21:00)
[2017-10-31] MEDS ORDERED: DIPHENHYDRAMINE 50MG/ML VIAL ONE (13:15)
[2017-10-31] MEDS ORDERED: MIDAZOLAM HCL 5 MG/5 ML VIAL ONE (13:15)
[2017-10-31] MEDS ORDERED: FENTANYL CITRATE/PF 50MCG/ML 2ML VIAL ONE (13:15)
[2017-10-31] MEDS ORDERED: SIMETHICONE 40 MG/0.6 ML 30ML ONE (13:15)
[2017-10-31] MEDS ORDERED: SODIUM CHLORIDE 0.9% 10ML VIAL ONE (13:37)
[2017-10-31] MEDS ORDERED: MIDAZOLAM HCL 5 MG/5 ML VIAL IV PRN (13:54)
[2017-10-31] MEDS ORDERED: FENTANYL CITRATE/PF 50MCG/ML 2ML VIAL IV PRN (13:55)
[2017-10-31] MEDS ORDERED: LEVOFLOXACIN 500MG PREMIX 100 ML IV ONE (16:00)
[2017-10-31] MEDS: METRONIDAZOLE 500MG TABLET PO SCH ×2 (18:23→21:00)
[2017-11-01] VITALS (12 sets, daily range): BP systolic 116–151; BP diastolic 53–82
[2017-11-01] MEDS: IPRATROPIUM BROMIDE (0.02%) 0.5MG/2.5ML NEB HHN SCH ×4 (01:08→20:06)
[2017-11-01 07:25] LABS: CHLORIDE 103 mEq/L (98-107)
[2017-11-01 07:26] LABS: BASOPHILS % 0.5 % (0.0-2.0); HEMATOCRIT. 22.6 % (36.0-48.0); HEMOGLOBIN. 7.2 g/dL (12.0-16.0); LYMPHOCYTES % 13.6 % (20.0-50.0); MEAN CORPUSCULAR HEMOGLOBIN 29.2 pg (28.0-32.0); MEAN PLATELET VOLUME 8.3 fl (7.4-10.4); MONOCYTES % 10.1 % (2.0-8.0); NEUTROPHILS % 70.8 % (40.0-76.0); PLATELET 462 x1000/uL (130-400); RED BLOOD CELL COUNT 2.48 mill/uL (4.2-5.4); RED CELL DISTRIBUTION WIDTH 18.5 % (11.6-14.6)
[2017-11-01] MEDS: METRONIDAZOLE 500MG TABLET PO SCH ×2 (08:50→21:00)
[2017-11-01] MEDS: CARVEDILOL 6.25 MG TABLET PO SCH ×2 (08:51→21:00)
[2017-11-01] MEDS: FAMOTIDINE 20MG TABLET PO SCH (08:52)
[2017-11-01] MEDS: DEXT 5%/0.9% NACL 1,000 ML IV SCH ×2 (08:52→21:45)
[2017-11-01 10:18] LABS: BG BASE EXCESS -1.8 mmol/L (-2.0-2.0); BG CARBOXYHEMOGLOBIN 0.9 % (0.5-1.5); BG DEOXYHEMOGLOBIN 0.8 % (0.0-5.0); BG FRACTION INSPIRED OXYGEN 35; BG HCO3 ACT 22.3 mmol/L (22.0-26.0); BG METHEMOGLOBIN 0.2 % (0.0-1.5); BG OXYGEN SATURATION 99.2 % (92.0-98.5); BG OXYHEMOGLOBIN 98.1 % (94.0-97.0); BG PCO2 34.6 mmHg (35.0-45.0); BG PH 7.427 (7.350-7.450); BG PO2 153.2 mmHg (75.0-100.0); BG SAMPLE SITE RIGHT RADIAL; BG TIDAL VOLUME(mL) 500 mL; BG TOTAL HEMOGLOBIN 7.3 g/dL (12.0-18.0); BG VENT MODE VENT - A/C; BG VENT RATE 10 set
[2017-11-01] MEDS: METOCLOPRAMIDE 10MG/10 ML UDC PO SCH ×2 (13:09→17:58)
[2017-11-01] MEDS: LEVOFLOXACIN 500MG TABLET PO SCH (15:12)
[2017-11-01] MEDS ORDERED: VANCOMYCIN 1250MG in DEXTROSE 5% WATER 250ML IV SCH (15:30)
[2017-11-01] MEDS: NYSTATIN 100,000 UNITS/GM CREAM 15GM TOP SCH (21:00)
[2017-11-02] VITALS (17 sets, daily range): BP systolic 115–159; BP diastolic 54–88
[2017-11-02] MEDS: METOCLOPRAMIDE 10MG/10 ML UDC PO SCH ×4 (00:47→18:38)
[2017-11-02] MEDS: IPRATROPIUM BROMIDE (0.02%) 0.5MG/2.5ML NEB HHN SCH ×4 (01:33→20:47)
[2017-11-02 07:44] LABS: HEMOGLOBIN. 7.2 g/dL (12.0-16.0); MEAN CORPUSCULAR VOLUME 92.5 fL (81.0-99.0); RED BLOOD CELL COUNT 2.48 mill/uL (4.2-5.4)
[2017-11-02 07:45] LABS: BASOPHILS % 0.2 % (0.0-2.0); EOSINOPHILS % 8.2 % (0.0-5.0); LYMPHOCYTES % 22.7 % (20.0-50.0); MEAN PLATELET VOLUME 8.3 fl (7.4-10.4); MONOCYTES % 11.7 % (2.0-8.0); NEUTROPHILS % 57.2 % (40.0-76.0); PLATELET 444 x1000/uL (130-400); RED CELL DISTRIBUTION WIDTH 18.5 % (11.6-14.6)
[2017-11-02 08:31] LABS: CHLORIDE 106 mEq/L (98-107)
[2017-11-02] MEDS: ZINC SULFATE 220 MG ( 50 ) CAPSULE GT SCH (09:53)
[2017-11-02] MEDS: MULTIVITAMINS,THER W-MINERALS TABLET GT SCH (09:53)
[2017-11-02] MEDS: CARVEDILOL 6.25 MG TABLET PO SCH ×2 (09:54→21:37)
[2017-11-02] MEDS: ASCORBIC ACID 500 MG TABLET PO SCH (09:55)
[2017-11-02] MEDS: FAMOTIDINE 20MG TABLET PO SCH (09:55)
[2017-11-02] MEDS: LEVOFLOXACIN 500MG TABLET PO SCH (09:55)
[2017-11-02] MEDS: METRONIDAZOLE 500MG TABLET PO SCH ×2 (09:55→21:38)
[2017-11-02] MEDS: NYSTATIN 100,000 UNITS/GM CREAM 15GM TOP SCH ×2 (10:25→21:40)
[2017-11-02] MEDS: VANCOMYCIN 1 G PREMIX 200 ML IV SCH (14:19)
[2017-11-02] MEDS ORDERED: VANCOMYCIN 750 MG PREMIX 150 ML IV SCH (16:00)
[2017-11-03] VITALS (13 sets, daily range): BP systolic 108–141; BP diastolic 55–97
[2017-11-03] MEDS: METOCLOPRAMIDE 10MG/10 ML UDC PO SCH ×4 (00:40→17:13)
[2017-11-03] MEDS: IPRATROPIUM BROMIDE (0.02%) 0.5MG/2.5ML NEB HHN SCH ×3 (02:19→14:16)
[2017-11-03] MEDS: VANCOMYCIN 1 G PREMIX 200 ML IV SCH (06:26)
[2017-11-03 07:25] LABS: BASOPHILS % 0.3 % (0.0-2.0); EOSINOPHILS % 8.7 % (0.0-5.0); LYMPHOCYTES % 20.2 % (20.0-50.0); MEAN CORPUSCULAR HEMOGLOBIN 29.5 pg (28.0-32.0); MEAN CORPUSCULAR VOLUME 90.5 fL (81.0-99.0); MEAN PLATELET VOLUME 7.9 fl (7.4-10.4); MONOCYTES % 12.7 % (2.0-8.0); NEUTROPHILS % 58.1 % (40.0-76.0); PLATELET 422 x1000/uL (130-400); RED BLOOD CELL COUNT 2.31 mill/uL (4.2-5.4); RED CELL DISTRIBUTION WIDTH 18.8 % (11.6-14.6)
[2017-11-03 08:18] LABS: CHLORIDE 105 mEq/L (98-107)
[2017-11-03 08:26] LABS: HEMATOCRIT. 20.9 % (36.0-48.0); HEMOGLOBIN. 6.8 g/dL (12.0-16.0)
[2017-11-03] MEDS: METRONIDAZOLE 500MG TABLET PO SCH (08:38)
[2017-11-03] MEDS: LEVOFLOXACIN 500MG TABLET PO SCH (08:38)
[2017-11-03] MEDS: ASCORBIC ACID 500 MG TABLET PO SCH (08:38)
[2017-11-03] MEDS: ZINC SULFATE 220 MG ( 50 ) CAPSULE GT SCH (08:38)
[2017-11-03] MEDS: FAMOTIDINE 20MG TABLET PO SCH (08:38)
[2017-11-03] MEDS: MULTIVITAMINS,THER W-MINERALS TABLET GT SCH (08:38)
[2017-11-03] MEDS: CARVEDILOL 6.25 MG TABLET PO SCH (08:39)
[2017-11-03] MEDS: NYSTATIN 100,000 UNITS/GM CREAM 15GM TOP SCH (08:41)
[2017-11-03] MEDS ORDERED: FLUCONAZOLE 200MG TABLET PO SCH (15:00)
== END 2017-11-03 19:29 | DRG 870 ==
LOC: ER 01:09 → 5EST 02:09 → ENRESERV 03:51
PROVIDERS: ADMIT Internal Medicine; ATTEND Internal Medicine
PROC: 5A1955Z Respiratory Ventilation, Greater than 96 Consecutive Hours (ICD-10-PCS; 2017-10-30)
PROC: 0DH63UZ Insertion of Feeding Device into Stomach, Percutaneous Approach (ICD-10-PCS; principal; 2017-10-31 11:00)
DX: A41.9 Sepsis, unspecified organism (principal); E43 Unspecified severe protein-calorie malnutrition; Z99.11 Dependence on respirator [ventilator] status; G93.40 Encephalopathy, unspecified; J96.10 Chronic respiratory failure, unspecified whether with hypoxia or hypercapnia; Z93.0 Tracheostomy status; R13.10 Dysphagia, unspecified; K94.22 Gastrostomy infection; E87.1 Hypo-osmolality and hyponatremia; L02.211 Cutaneous abscess of abdominal wall; N39.0 Urinary tract infection, site not specified; K94.23 Gastrostomy malfunction; E11.51 Type 2 diabetes mellitus with diabetic peripheral angiopathy without gangrene; E11.65 Type 2 diabetes mellitus with hyperglycemia; E11.69 Type 2 diabetes mellitus with other specified complication; D64.9 Anemia, unspecified; R79.89 Other specified abnormal findings of blood chemistry; I10 Essential (primary) hypertension; D72.823 Leukemoid reaction; I25.10 Atherosclerotic heart disease of native coronary artery without angina pectoris; F03.90 Unspecified dementia, unspecified severity, without behavioral disturbance, psychotic disturbance, mood disturbance, and anxiety; E83.52 Hypercalcemia; Y83.3 Surgical operation with formation of external stoma as the cause of abnormal reaction of the patient, or of later complication, without mention of misadventure at the time of the procedure; Y92.89 Other specified places as the place of occurrence of the external cause; Z86.73 Personal history of transient ischemic attack (TIA), and cerebral infarction without residual deficits; Z88.0 Allergy status to penicillin; Z87.440 Personal history of urinary (tract) infections; Z68.32 Body mass index [BMI] 32.0-32.9, adult; Z88.5 Allergy status to narcotic agent; Z88.8 Allergy status to other drugs, medicaments and biological substances; Z87.01 Personal history of pneumonia (recurrent)
CPT/HCPCS: 36415; 36600; 71045; 76705; 80048; 82270; 82375; 82805; 85025; 85027; 85610; 85730; 86850; 86900; 87070; 87077; 87086; 87106; 87205; 94002; 94003; 94640; 99285; A4216; C1893; J1200; J1956; J2250; J3010; J3370; J7042; J7060; J7620; J8597

== ENCOUNTER 2018-02-07 13:36 | Inpatient (IN) | payer MEDICARE, MEDICAID ==
[~2018-02-07] VITALS: Ht 162.6 cm; Wt 95.3 kg
[~2018-02-07 13:36] MED LIST: COR6 MT; FAMO40TA70 MT; METO-293 MT
[2018-02-07 15:23] LABS: CHLORIDE 85 mEq/L (98-107)
[2018-02-07 15:25] LABS: INR 1.1; PARTIAL THROMBOPLASTIN TIME 33.9 sec (23.4-31.0); PROTHROMBIN TIME 11.5 sec (9.4-11.6)
[2018-02-07 15:31] LABS: HEMATOCRIT. 22.5 % (36.0-48.0); HEMOGLOBIN. 7.2 g/dL (12.0-16.0); MEAN CORPUSCULAR HEMOGLOBIN 29.3 pg (28.0-32.0); MEAN CORPUSCULAR VOLUME 92.1 fL (81.0-99.0); MEAN PLATELET VOLUME 8.8 fl (7.4-10.4); PLATELET 675 x1000/uL (130-400); RED BLOOD CELL COUNT 2.44 mill/uL (4.2-5.4); RED CELL DISTRIBUTION WIDTH 18.3 % (11.6-14.6)
[2018-02-07] MEDS ORDERED: ACETAMINOPHEN 325MG TABLET GT STA (15:33)
[2018-02-07] MEDS ORDERED: LEVOFLOXACIN 750MG PREMIX 150 ML IV ONE (15:45)
[2018-02-07 16:51] LABS: PLATELET ESTIMATE INCREASED
[2018-02-07] MEDS ORDERED: FUROSEMIDE 100MG/10ML VIAL IV STA (17:28)
[2018-02-07] MEDS ORDERED: SODIUM BICARBONATE 8.4% 1 MEQ/ML 50ML SYR IV ONE (17:30)
[2018-02-07] MEDS ORDERED: SODIUM POLYSTYRENE SULFONATE 15 G/60 ML BOT PO ONE (17:30)
[2018-02-07] MEDS ORDERED: CALCIUM CHLORIDE 1GM/10ML SYR IV ONE (17:30)
[2018-02-07] MEDS ORDERED: INSULIN REGULAR (HUMULIN R) 300UNITS/3ML SUBCUT ONE (18:30)
[2018-02-07 21:30] VITALS: BP 145/57
[2018-02-07] MEDS ORDERED: INSU100I28 SQ (23:08)
[2018-02-07] MEDS ORDERED: DOCU-138 GT (23:08)
[2018-02-07] MEDS ORDERED: MULT-379 GT (23:16)
[2018-02-07] MEDS ORDERED: ACET650S25 GT (23:16)
[2018-02-08] VITALS (22 sets, daily range): BP systolic 109–164; BP diastolic 42–94
[2018-02-08] MEDS ORDERED: IPRATROPIUM/ALBUTEROL 0.5-3(2.5)MG/3ML NEB HHN PRN
[2018-02-08] MEDS ORDERED: DEXTROSE 50% WATER 50ML SYRINGE IV PRN
[2018-02-08] MEDS ORDERED: METOCLOPRAMIDE HCL GT SCH
[2018-02-08] MEDS ORDERED: MEDICATION NOT ON FORMULARY EA (Insulin Glargine,Hum.rec.anlog (Lantus Solostar) 25 UNIT SQ SCH (00:15)
[2018-02-08] MEDS: INSULIN LISPRO 100 UNITS/ML SUBCUT SCH ×5 (02:10→23:25)
[2018-02-08] MEDS ORDERED: VANCOMYCIN 1500MG in DEXTROSE 5% WATER 250ML IV SCH (03:00)
[2018-02-08] MEDS: IPRATROPIUM/ALBUTEROL 0.5-3(2.5)MG/3ML NEB HHN SCH ×4 (03:33→16:20)
[2018-02-08] MEDS: ACETAMINOPHEN 650MG/20.3ML UDC GT PRN ×2 (04:26→15:00)
[2018-02-08] MEDS: METOCLOPRAMIDE 10MG/10 ML UDC GT SCH ×4 (05:21→23:29)
[2018-02-08] MEDS: BLOOD SUGAR DIAGNOSTIC STRIP TEST SCH ×5 (05:22→23:29)
[2018-02-08 06:32] LABS: MEAN CORPUSCULAR HEMOGLOBIN 28.8 pg (28.0-32.0); MEAN CORPUSCULAR VOLUME 90.8 fL (81.0-99.0); MEAN PLATELET VOLUME 8.1 fl (7.4-10.4); PLATELET 621 x1000/uL (130-400); RED BLOOD CELL COUNT 2.09 mill/uL (4.2-5.4); RED CELL DISTRIBUTION WIDTH 18.2 % (11.6-14.6)
[2018-02-08] MEDS ORDERED: INSULIN LISPRO 100 UNITS/ML SUBCUT SCH (08:00)
[2018-02-08] MEDS: FAMOTIDINE 20MG TABLET GT SCH (08:57)
[2018-02-08] MEDS: MULTIVITAMINS,THER W-MINERALS TABLET GT SCH (08:57)
[2018-02-08] MEDS: DOCUSATE SODIUM SUGAR FREE 100MG/10ML UDC GT SCH (08:58)
[2018-02-08] MEDS ORDERED: MEDICATION NOT ON FORMULARY EA (Famotidine (Pepcid) 1 TAB) GT SCH (09:00)
[2018-02-08] MEDS ORDERED: CARVEDILOL 6.25 MG TABLET GT SCH (09:00)
[2018-02-08] MEDS ORDERED: MULTIVITAMIN WITH MINERALS GT SCH (09:00)
[2018-02-08] MEDS ORDERED: [UNRECOGNIZED DRUG - OTHER] GT SCH (09:00)
[2018-02-08] MEDS ORDERED: MEDICATION NOT ON FORMULARY EA (Docusate Sodium (Colace) 100 MG) GT SCH (09:00)
[2018-02-08 09:42] LABS: BG BASE EXCESS 2.9 mmol/L (-2.0-2.0); BG CARBOXYHEMOGLOBIN 1.4 % (0.5-1.5); BG DEOXYHEMOGLOBIN 0.2 % (0.0-5.0); BG FRACTION INSPIRED OXYGEN 40; BG HCO3 ACT 27.1 mmol/L (22.0-26.0); BG METHEMOGLOBIN 0.3 % (0.0-1.5); BG OXYGEN SATURATION 99.8 % (92.0-98.5); BG OXYHEMOGLOBIN 98.1 % (94.0-97.0); BG PH 7.449 (7.350-7.450); BG PO2 170.3 mmHg (75.0-100.0); BG SAMPLE SITE RIGHT RADIAL; BG TIDAL VOLUME(mL) 500 mL; BG TOTAL HEMOGLOBIN 7.1 g/dL (12.0-18.0); BG VENT MODE VENT - A/C; BG VENT RATE 10 set
[2018-02-08] MEDS: INSULIN GLARGINE UD 100 UNITS/ML SYR SUBCUT SCH ×2 (09:44→23:26)
[2018-02-08] MEDS ORDERED: SODIUM CHLORIDE 0.9% IRRIG SOLUTION 1000ML IR ONE (10:00)
[2018-02-08 10:15] LABS: PLATELET ESTIMATE INCREASED
[2018-02-08] MEDS: SODIUM CHLORIDE 0.9% 1,000 ML IV SCH ×2 (11:49→23:29)
[2018-02-08] MEDS ORDERED: PNEUMOCOCCAL 23-VAL P-SAC VAC 0.5 ML IM ONE (12:00)
[2018-02-08 12:22] LABS: CLARITY URINE TURBID (CLEAR); COLOR URINE YELLOW (YELLOW); KETONES URINE NEGATIVE (NEGATIVE); LEUKOCYTE ESTERASE URINE 3+ (NEGATIVE); NITRITE URINE NEGATIVE (NEGATIVE); OCCULT BLOOD URINE 1+ (NEGATIVE); PH URINE 7.5 (4.5-8.0); PROTEIN URINE 2+ (NEGATIVE); SPECIFIC GRAVITY URINE 1.018 (1.005-1.030); UROBILINOGEN URINE 0.2 E.U./dL (0.2-1.0)
[2018-02-08] MEDS: ASCORBIC ACID 500 MG TABLET GT SCH (13:03)
[2018-02-08] MEDS ORDERED: LEVOFLOXACIN 500MG PREMIX 100 ML IV SCH (16:00)
[2018-02-08] MEDS: GUAIFENESIN 200MG/10ML SUGAR FREE UDC PO SCH (16:18)
[2018-02-08] MEDS: LEVOFLOXACIN 250MG PREMIX 50 ML IV SCH (17:49)
[2018-02-08 23:49] LABS: HEMATOCRIT 29.3 % (36.0-48.0); HEMOGLOBIN 9.6 g/dL (12.0-16.0); MEAN CORPUSCULAR HEMOGLOBIN 29.4 pg (28.0-32.0); PLATELET 581 x1000/uL (130-400); RED BLOOD CELL COUNT 3.26 mill/uL (4.2-5.4); RED CELL DISTRIBUTION WIDTH 16.6 % (11.6-14.6)
[2018-02-09] VITALS (12 sets, daily range): BP systolic 107–162; BP diastolic 51–73
[2018-02-09] MEDS: IPRATROPIUM/ALBUTEROL 0.5-3(2.5)MG/3ML NEB HHN SCH ×6 (00:24→20:45)
[2018-02-09 02:40] LABS: INR 1.2; PROTHROMBIN TIME 12.7 sec (9.4-11.6)
[2018-02-09] MEDS: VANCOMYCIN 1 G PREMIX 200 ML IV SCH (02:55)
[2018-02-09 03:30] LABS: FIBRINOGEN > 999 mg/dL (200-400)
[2018-02-09] MEDS: GUAIFENESIN 200MG/10ML SUGAR FREE UDC PO SCH ×3 (05:24→17:42)
[2018-02-09] MEDS: BLOOD SUGAR DIAGNOSTIC STRIP TEST SCH ×4 (05:25→23:03)
[2018-02-09] MEDS: METOCLOPRAMIDE 10MG/10 ML UDC GT SCH ×4 (05:25→23:03)
[2018-02-09] MEDS: INSULIN LISPRO 100 UNITS/ML SUBCUT SCH ×4 (05:30→23:04)
[2018-02-09 06:22] LABS: HEMATOCRIT. 23.7 % (36.0-48.0); HEMOGLOBIN. 7.9 g/dL (12.0-16.0); MEAN CORPUSCULAR HEMOGLOBIN 29.6 pg (28.0-32.0); MEAN CORPUSCULAR VOLUME 89.1 fL (81.0-99.0); PLATELET 587 x1000/uL (130-400); RED BLOOD CELL COUNT 2.66 mill/uL (4.2-5.4); RED CELL DISTRIBUTION WIDTH 16.3 % (11.6-14.6)
[2018-02-09] MEDS: MULTIVITAMINS,THER W-MINERALS TABLET GT SCH (08:43)
[2018-02-09] MEDS: DOCUSATE SODIUM SUGAR FREE 100MG/10ML UDC GT SCH (08:43)
[2018-02-09] MEDS: FAMOTIDINE 20MG TABLET GT SCH (08:43)
[2018-02-09] MEDS: ZINC SULFATE 220 MG ( 50 ) CAPSULE GT SCH (08:44)
[2018-02-09] MEDS: ASCORBIC ACID 500 MG TABLET GT SCH (08:44)
[2018-02-09] MEDS ORDERED: MULTIVITAMINS,THER W-MINERALS TABLET GT SCH (09:00)
[2018-02-09 10:12] LABS: NUCLEATED RED BLOOD CELLS 1 /100 WBC
[2018-02-09 10:13] LABS: PLATELET ESTIMATE INCREASED
[2018-02-09] MEDS: INSULIN GLARGINE UD 100 UNITS/ML SYR SUBCUT SCH ×2 (11:37→22:24)
[2018-02-09] MEDS: SODIUM CHLORIDE 0.9% 1,000 ML IV SCH (14:37)
[2018-02-09] MEDS: LEVOFLOXACIN 250MG PREMIX 50 ML IV SCH (16:34)
[2018-02-10] VITALS (12 sets, daily range): BP systolic 125–179; BP diastolic 62–76
[2018-02-10] MEDS: IPRATROPIUM/ALBUTEROL 0.5-3(2.5)MG/3ML NEB HHN SCH ×6 (00:25→20:21)
[2018-02-10] MEDS: GUAIFENESIN 200MG/10ML SUGAR FREE UDC PO SCH ×4 (00:30→17:47)
[2018-02-10] MEDS: VANCOMYCIN 1 G PREMIX 200 ML IV SCH (03:05)
[2018-02-10] MEDS: SODIUM CHLORIDE 0.9% 1,000 ML IV SCH ×2 (03:05→17:47)
[2018-02-10] MEDS: ACETAMINOPHEN 650MG/20.3ML UDC GT PRN (04:03)
[2018-02-10] MEDS: BLOOD SUGAR DIAGNOSTIC STRIP TEST SCH ×4 (05:14→23:12)
[2018-02-10] MEDS: METOCLOPRAMIDE 10MG/10 ML UDC GT SCH ×3 (05:14→17:47)
[2018-02-10] MEDS: INSULIN LISPRO 100 UNITS/ML SUBCUT SCH ×4 (05:21→23:11)
[2018-02-10 05:34] LABS: HEMATOCRIT. 23.9 % (36.0-48.0); HEMOGLOBIN. 7.7 g/dL (12.0-16.0); MEAN CORPUSCULAR HEMOGLOBIN 29.1 pg (28.0-32.0); MEAN CORPUSCULAR VOLUME 89.9 fL (81.0-99.0); MEAN PLATELET VOLUME 8.1 fl (7.4-10.4); PLATELET 585 x1000/uL (130-400); RED BLOOD CELL COUNT 2.65 mill/uL (4.2-5.4); RED CELL DISTRIBUTION WIDTH 16.8 % (11.6-14.6)
[2018-02-10 07:19] LABS: PLATELET ESTIMATE INCREASED
[2018-02-10] MEDS: MULTIVITAMINS,THER W-MINERALS TABLET GT SCH (09:55)
[2018-02-10] MEDS: DOCUSATE SODIUM SUGAR FREE 100MG/10ML UDC GT SCH (09:55)
[2018-02-10] MEDS: ASCORBIC ACID 500 MG TABLET GT SCH (09:55)
[2018-02-10] MEDS: ZINC SULFATE 220 MG ( 50 ) CAPSULE GT SCH (09:56)
[2018-02-10] MEDS: FAMOTIDINE 20MG TABLET GT SCH (09:56)
[2018-02-10] MEDS: INSULIN GLARGINE UD 100 UNITS/ML SYR SUBCUT SCH ×2 (10:04→23:12)
[2018-02-10] MEDS: LEVOFLOXACIN 250MG PREMIX 50 ML IV SCH (17:47)
[2018-02-10] MEDS: CARVEDILOL 6.25 MG TABLET PO SCH (21:26)
[2018-02-11] VITALS (14 sets, daily range): BP systolic 107–135; BP diastolic 44–92
[2018-02-11] MEDS: IPRATROPIUM/ALBUTEROL 0.5-3(2.5)MG/3ML NEB HHN SCH ×5 (00:05→20:44)
[2018-02-11] MEDS: GUAIFENESIN 200MG/10ML SUGAR FREE UDC PO SCH ×4 (00:25→17:49)
[2018-02-11] MEDS: METOCLOPRAMIDE 10MG/10 ML UDC GT SCH ×5 (00:25→23:58)
[2018-02-11] MEDS: SODIUM CHLORIDE 0.9% 1,000 ML IV SCH ×3 (00:26→17:50)
[2018-02-11] MEDS: VANCOMYCIN 1 G PREMIX 200 ML IV SCH (03:53)
[2018-02-11] MEDS: BLOOD SUGAR DIAGNOSTIC STRIP TEST SCH ×3 (06:22→17:47)
[2018-02-11] MEDS: INSULIN LISPRO 100 UNITS/ML SUBCUT SCH ×3 (06:22→18:05)
[2018-02-11 06:30] LABS: BASOPHILS % 0.3 % (0.0-2.0); EOSINOPHILS % 1.3 % (0.0-5.0); HEMATOCRIT. 23.3 % (36.0-48.0); HEMOGLOBIN. 7.6 g/dL (12.0-16.0); LYMPHOCYTES % 16.3 % (20.0-50.0); MEAN CORPUSCULAR VOLUME 92.1 fL (81.0-99.0); MEAN PLATELET VOLUME 8.1 fl (7.4-10.4); MONOCYTES % 12.6 % (2.0-8.0); NEUTROPHILS % 69.5 % (40.0-76.0); PLATELET 566 x1000/uL (130-400); RED BLOOD CELL COUNT 2.53 mill/uL (4.2-5.4); RED CELL DISTRIBUTION WIDTH 16.7 % (11.6-14.6)
[2018-02-11] MEDS: ASCORBIC ACID 500 MG TABLET GT SCH (09:00)
[2018-02-11] MEDS: MULTIVITAMINS,THER W-MINERALS TABLET GT SCH (10:13)
[2018-02-11] MEDS: CARVEDILOL 6.25 MG TABLET PO SCH ×2 (10:13→21:00)
[2018-02-11] MEDS: ZINC SULFATE 220 MG ( 50 ) CAPSULE GT SCH (10:13)
[2018-02-11] MEDS: FAMOTIDINE 20MG TABLET GT SCH (10:14)
[2018-02-11] MEDS: DOCUSATE SODIUM SUGAR FREE 100MG/10ML UDC GT SCH (10:16)
[2018-02-11] MEDS: INSULIN GLARGINE UD 100 UNITS/ML SYR SUBCUT SCH (10:48)
[2018-02-11] MEDS ORDERED: *TOBRAMYCIN PER PHARMACY XX SCH (14:30)
[2018-02-11] MEDS: TOBRAMYCIN SULFATE 160 MG in SODIUM CHLORIDE 0.9% 100 ML IV SCH (16:00)
[2018-02-11] MEDS ORDERED: NITROFURANTOIN 100MG M/M CAPSULE PO SCH (21:00)
[2018-02-12] VITALS (13 sets, daily range): BP systolic 102–157; BP diastolic 45–72
[2018-02-12] MEDS: BLOOD SUGAR DIAGNOSTIC STRIP TEST SCH ×5 (00:20→23:33)
[2018-02-12] MEDS: INSULIN GLARGINE UD 100 UNITS/ML SYR SUBCUT SCH ×3 (00:20→22:30)
[2018-02-12] MEDS: INSULIN LISPRO 100 UNITS/ML SUBCUT SCH ×5 (00:20→23:38)
[2018-02-12] MEDS: IPRATROPIUM/ALBUTEROL 0.5-3(2.5)MG/3ML NEB HHN SCH ×6 (00:39→20:45)
[2018-02-12] MEDS: GUAIFENESIN 200MG/10ML SUGAR FREE UDC PO SCH ×5 (02:39→23:37)
[2018-02-12] MEDS: METOCLOPRAMIDE 10MG/10 ML UDC GT SCH ×4 (05:21→23:37)
[2018-02-12] MEDS: SODIUM CHLORIDE 0.9% 1,000 ML IV SCH ×2 (05:21→15:59)
[2018-02-12 06:44] LABS: HEMATOCRIT. 26.2 % (36.0-48.0); HEMOGLOBIN. 8.1 g/dL (12.0-16.0); MEAN CORPUSCULAR HEMOGLOBIN 28.6 pg (28.0-32.0); MEAN CORPUSCULAR VOLUME 92.4 fL (81.0-99.0); PLATELET 573 x1000/uL (130-400); RED BLOOD CELL COUNT 2.84 mill/uL (4.2-5.4); RED CELL DISTRIBUTION WIDTH 17.1 % (11.6-14.6)
[2018-02-12] MEDS ORDERED: SODIUM POLYSTYRENE SULFONATE 15 G/60 ML BOT GT NR (08:45)
[2018-02-12] MEDS: ZINC SULFATE 220 MG ( 50 ) CAPSULE GT SCH (08:52)
[2018-02-12] MEDS: DOCUSATE SODIUM SUGAR FREE 100MG/10ML UDC GT SCH (08:52)
[2018-02-12] MEDS: MULTIVITAMINS,THER W-MINERALS TABLET GT SCH (08:53)
[2018-02-12] MEDS: CARVEDILOL 6.25 MG TABLET PO SCH (08:53)
[2018-02-12] MEDS: ASCORBIC ACID 500 MG TABLET GT SCH (08:54)
[2018-02-12] MEDS: FAMOTIDINE 20MG TABLET GT SCH (08:54)
[2018-02-12 12:57] LABS: PLATELET ESTIMATE INCREASED
[2018-02-12] MEDS: TOBRAMYCIN SULFATE 160 MG in SODIUM CHLORIDE 0.9% 100 ML IV SCH (15:59)
[2018-02-12] MEDS: VANCOMYCIN 1 G PREMIX 200 ML IV SCH (22:27)
[2018-02-12] MEDS: CARVEDILOL 12.5MG TABLET GT SCH (22:28)
[2018-02-13] VITALS (12 sets, daily range): BP systolic 98–155; BP diastolic 46–80
[2018-02-13] MEDS: ACETAMINOPHEN 650MG/20.3ML UDC GT PRN ×2 (00:21→15:38)
[2018-02-13] MEDS: IPRATROPIUM/ALBUTEROL 0.5-3(2.5)MG/3ML NEB HHN SCH ×7 (00:31→23:59)
[2018-02-13] MEDS: SODIUM CHLORIDE 0.9% 1,000 ML IV SCH ×2 (04:11→12:42)
[2018-02-13] MEDS: BLOOD SUGAR DIAGNOSTIC STRIP TEST SCH ×3 (05:06→17:30)
[2018-02-13] MEDS: GUAIFENESIN 200MG/10ML SUGAR FREE UDC PO SCH ×3 (05:31→17:42)
[2018-02-13] MEDS: METOCLOPRAMIDE 10MG/10 ML UDC GT SCH ×3 (05:31→17:42)
[2018-02-13] MEDS: INSULIN LISPRO 100 UNITS/ML SUBCUT SCH ×3 (05:32→17:43)
[2018-02-13 06:24] LABS: HEMATOCRIT. 25.1 % (36.0-48.0); HEMOGLOBIN. 7.9 g/dL (12.0-16.0); MEAN CORPUSCULAR HEMOGLOBIN 29.2 pg (28.0-32.0); MEAN PLATELET VOLUME 8.5 fl (7.4-10.4); PLATELET 538 x1000/uL (130-400); RED CELL DISTRIBUTION WIDTH 16.7 % (11.6-14.6)
[2018-02-13 06:38] LABS: CHLORIDE 105 mEq/L (98-107)
[2018-02-13 07:27] LABS: PLATELET ESTIMATE INCREASED
[2018-02-13] MEDS: DOCUSATE SODIUM SUGAR FREE 100MG/10ML UDC GT SCH (10:00)
[2018-02-13] MEDS: CARVEDILOL 12.5MG TABLET GT SCH ×2 (10:00→21:22)
[2018-02-13] MEDS: ZINC SULFATE 220 MG ( 50 ) CAPSULE GT SCH (10:00)
[2018-02-13] MEDS: MULTIVITAMINS,THER W-MINERALS TABLET GT SCH (10:00)
[2018-02-13] MEDS: ASCORBIC ACID 500 MG TABLET GT SCH (10:00)
[2018-02-13] MEDS: FAMOTIDINE 20MG TABLET GT SCH (10:00)
[2018-02-13] MEDS: INSULIN GLARGINE UD 100 UNITS/ML SYR SUBCUT SCH ×2 (10:01→21:30)
[2018-02-13] MEDS: TOBRAMYCIN SULFATE 160 MG in SODIUM CHLORIDE 0.9% 100 ML IV SCH (15:38)
[2018-02-14] VITALS (11 sets, daily range): BP systolic 92–150; BP diastolic 44–73
[2018-02-14] MEDS: GUAIFENESIN 200MG/10ML SUGAR FREE UDC PO SCH ×5 (00:08→23:31)
[2018-02-14] MEDS: METOCLOPRAMIDE 10MG/10 ML UDC GT SCH ×5 (00:08→23:31)
[2018-02-14] MEDS: SODIUM CHLORIDE 0.9% 1,000 ML IV SCH ×3 (00:09→23:31)
[2018-02-14] MEDS: BLOOD SUGAR DIAGNOSTIC STRIP TEST SCH ×5 (00:09→23:32)
[2018-02-14] MEDS: IPRATROPIUM/ALBUTEROL 0.5-3(2.5)MG/3ML NEB HHN SCH ×5 (04:07→20:31)
[2018-02-14] MEDS: INSULIN LISPRO 100 UNITS/ML SUBCUT SCH ×5 (06:00→23:35)
[2018-02-14] MEDS ORDERED: LIDOCAINE HCL 1% 20ML VIAL (Pyxis) INJ ONE (07:26)
[2018-02-14] MEDS: ACETAMINOPHEN 650MG/20.3ML UDC GT PRN ×2 (07:37→20:34)
[2018-02-14] MEDS: VANCOMYCIN 1 G PREMIX 200 ML IV SCH (09:33)
[2018-02-14] MEDS: ASCORBIC ACID 500 MG TABLET GT SCH (09:34)
[2018-02-14] MEDS: CARVEDILOL 12.5MG TABLET GT SCH ×2 (09:34→20:25)
[2018-02-14] MEDS: ZINC SULFATE 220 MG ( 50 ) CAPSULE GT SCH (09:34)
[2018-02-14] MEDS: MULTIVITAMINS,THER W-MINERALS TABLET GT SCH (09:34)
[2018-02-14] MEDS: DOCUSATE SODIUM SUGAR FREE 100MG/10ML UDC GT SCH (09:34)
[2018-02-14] MEDS: FAMOTIDINE 20MG TABLET GT SCH (09:34)
[2018-02-14] MEDS: INSULIN GLARGINE UD 100 UNITS/ML SYR SUBCUT SCH ×2 (10:46→21:25)
[2018-02-14] MEDS: TOBRAMYCIN SULFATE 160 MG in SODIUM CHLORIDE 0.9% 100 ML IV SCH (16:42)
[2018-02-15] VITALS (19 sets, daily range): BP systolic 110–148; BP diastolic 50–132
[2018-02-15] MEDS: IPRATROPIUM/ALBUTEROL 0.5-3(2.5)MG/3ML NEB HHN SCH ×6 (00:23→20:43)
[2018-02-15] MEDS: METOCLOPRAMIDE 10MG/10 ML UDC GT SCH ×3 (05:40→17:39)
[2018-02-15] MEDS: BLOOD SUGAR DIAGNOSTIC STRIP TEST SCH ×3 (05:40→17:33)
[2018-02-15] MEDS: GUAIFENESIN 200MG/10ML SUGAR FREE UDC PO SCH ×3 (05:40→17:39)
[2018-02-15] MEDS: INSULIN LISPRO 100 UNITS/ML SUBCUT SCH ×3 (05:40→17:33)
[2018-02-15] MEDS: SODIUM CHLORIDE 0.9% 1,000 ML IV SCH ×3 (08:39→21:49)
[2018-02-15] MEDS: MULTIVITAMINS,THER W-MINERALS TABLET GT SCH (09:01)
[2018-02-15] MEDS: DOCUSATE SODIUM SUGAR FREE 100MG/10ML UDC GT SCH (09:01)
[2018-02-15] MEDS: ASCORBIC ACID 500 MG TABLET GT SCH (09:01)
[2018-02-15] MEDS: FAMOTIDINE 20MG TABLET GT SCH (09:01)
[2018-02-15] MEDS: ZINC SULFATE 220 MG ( 50 ) CAPSULE GT SCH (09:01)
[2018-02-15] MEDS: CARVEDILOL 12.5MG TABLET GT SCH ×2 (09:06→21:00)
[2018-02-15 09:49] LABS: HEMATOCRIT. 24.1 % (36.0-48.0); HEMOGLOBIN. 7.8 g/dL (12.0-16.0); MEAN CORPUSCULAR HEMOGLOBIN 29.6 pg (28.0-32.0); MEAN PLATELET VOLUME 8.1 fl (7.4-10.4); PLATELET 527 x1000/uL (130-400); RED BLOOD CELL COUNT 2.62 mill/uL (4.2-5.4); RED CELL DISTRIBUTION WIDTH 16.5 % (11.6-14.6)
[2018-02-15 10:06] LABS: CHLORIDE 105 mEq/L (98-107)
[2018-02-15 10:12] LABS: PHOSPHORUS 3.2 mg/dL (2.5-4.9)
[2018-02-15 10:20] LABS: PLATELET ESTIMATE INCREASED
[2018-02-15] MEDS: INSULIN GLARGINE UD 100 UNITS/ML SYR SUBCUT SCH ×2 (10:27)
[2018-02-15] MEDS ORDERED: *TOBRAMYCIN PER PHARMACY XX SCH (14:45)
[2018-02-15] MEDS: DAPTOMYCIN 500 MG in SODIUM CHLORIDE 0.9% 50 ML IV SCH (16:51)
[2018-02-15] MEDS: TOBRAMYCIN SULFATE 160 MG in SODIUM CHLORIDE 0.9% 100 ML IV SCH (21:32)
[2018-02-16] VITALS (14 sets, daily range): BP systolic 114–156; BP diastolic 50–89
[2018-02-16] MEDS: BLOOD SUGAR DIAGNOSTIC STRIP TEST SCH ×4 (00:14→18:11)
[2018-02-16] MEDS: IPRATROPIUM/ALBUTEROL 0.5-3(2.5)MG/3ML NEB HHN SCH ×6 (00:17→20:57)
[2018-02-16] MEDS: METOCLOPRAMIDE 10MG/10 ML UDC GT SCH ×4 (00:27→18:07)
[2018-02-16] MEDS: GUAIFENESIN 200MG/10ML SUGAR FREE UDC PO SCH ×4 (00:28→18:12)
[2018-02-16] MEDS: INSULIN LISPRO 100 UNITS/ML SUBCUT SCH ×4 (06:21→18:11)
[2018-02-16 07:27] LABS: MEAN CORPUSCULAR HEMOGLOBIN 29.4 pg (28.0-32.0); MEAN CORPUSCULAR VOLUME 93.1 fL (81.0-99.0); MEAN PLATELET VOLUME 9.4 fl (7.4-10.4); PLATELET 486 x1000/uL (130-400); RED BLOOD CELL COUNT 2.19 mill/uL (4.2-5.4); RED CELL DISTRIBUTION WIDTH 16.9 % (11.6-14.6)
[2018-02-16 07:38] LABS: CHLORIDE 106 mEq/L (98-107)
[2018-02-16 07:40] LABS: HEMOGLOBIN. 6.4 g/dL (12.0-16.0)
[2018-02-16 07:41] LABS: HEMATOCRIT. 20.4 % (36.0-48.0)
[2018-02-16 07:58] LABS: CREATINE KINASE 56 IU/L (26-192)
[2018-02-16] MEDS: ZINC SULFATE 220 MG ( 50 ) CAPSULE GT SCH (09:29)
[2018-02-16] MEDS: DOCUSATE SODIUM SUGAR FREE 100MG/10ML UDC GT SCH (09:29)
[2018-02-16] MEDS: CARVEDILOL 12.5MG TABLET GT SCH ×2 (09:30→20:54)
[2018-02-16] MEDS: MULTIVITAMINS,THER W-MINERALS TABLET GT SCH (09:30)
[2018-02-16] MEDS: FAMOTIDINE 20MG TABLET GT SCH (09:30)
[2018-02-16] MEDS: ASCORBIC ACID 500 MG TABLET GT SCH (09:35)
[2018-02-16] MEDS: INSULIN GLARGINE UD 100 UNITS/ML SYR SUBCUT SCH (09:43)
[2018-02-16 10:41] LABS: PLATELET ESTIMATE INCREASED
[2018-02-16] MEDS: SODIUM CHLORIDE 0.9% 1,000 ML IV SCH (12:44)
[2018-02-16] MEDS: DAPTOMYCIN 500 MG in SODIUM CHLORIDE 0.9% 50 ML IV SCH (17:17)
[2018-02-17] VITALS (11 sets, daily range): BP systolic 108–159; BP diastolic 56–76
[2018-02-17 00:29] LABS: HEMATOCRIT 25.8 % (36.0-48.0); HEMOGLOBIN 8.4 g/dL (12.0-16.0)
[2018-02-17] MEDS: IPRATROPIUM/ALBUTEROL 0.5-3(2.5)MG/3ML NEB HHN SCH ×5 (00:38→16:35)
[2018-02-17] MEDS: BLOOD SUGAR DIAGNOSTIC STRIP TEST SCH ×4 (00:42→17:18)
[2018-02-17] MEDS: GUAIFENESIN 200MG/10ML SUGAR FREE UDC PO SCH ×4 (01:07→17:37)
[2018-02-17] MEDS: METOCLOPRAMIDE 10MG/10 ML UDC GT SCH ×4 (01:07→17:37)
[2018-02-17] MEDS: INSULIN GLARGINE UD 100 UNITS/ML SYR SUBCUT SCH ×2 (01:09→09:44)
[2018-02-17] MEDS: INSULIN LISPRO 100 UNITS/ML SUBCUT SCH ×4 (01:10→17:18)
[2018-02-17 01:29] LABS: INR 1.2
[2018-02-17] MEDS: SODIUM CHLORIDE 0.9% 1,000 ML IV SCH ×3 (06:57→16:16)
[2018-02-17 07:14] LABS: HEMATOCRIT. 25.8 % (36.0-48.0); HEMOGLOBIN. 8.3 g/dL (12.0-16.0); MEAN CORPUSCULAR VOLUME 89.9 fL (81.0-99.0); MEAN PLATELET VOLUME 8.4 fl (7.4-10.4); PLATELET 462 x1000/uL (130-400); RED BLOOD CELL COUNT 2.87 mill/uL (4.2-5.4); RED CELL DISTRIBUTION WIDTH 16.3 % (11.6-14.6)
[2018-02-17 07:18] LABS: CHLORIDE 104 mEq/L (98-107)
[2018-02-17] MEDS: MULTIVITAMINS,THER W-MINERALS TABLET GT SCH (09:28)
[2018-02-17] MEDS: CARVEDILOL 12.5MG TABLET GT SCH (09:28)
[2018-02-17] MEDS: FAMOTIDINE 20MG TABLET GT SCH (09:28)
[2018-02-17] MEDS: ZINC SULFATE 220 MG ( 50 ) CAPSULE GT SCH (09:28)
[2018-02-17] MEDS: DOCUSATE SODIUM SUGAR FREE 100MG/10ML UDC GT SCH (09:28)
[2018-02-17] MEDS: TOBRAMYCIN SULFATE 160 MG in SODIUM CHLORIDE 0.9% 100 ML IV SCH (09:44)
[2018-02-17] MEDS: ASCORBIC ACID 500 MG TABLET GT SCH (10:42)
[2018-02-17] MEDS ORDERED: ACETYLCYSTEINE 100MG/ML 10% VIAL 4ML INH SCH (14:00)
[2018-02-17 14:04] LABS: PLATELET ESTIMATE INCREASED
[2018-02-17] MEDS: DAPTOMYCIN 500 MG in SODIUM CHLORIDE 0.9% 50 ML IV SCH (15:43)
== END 2018-02-17 22:15 | DRG 853 ==
LOC: ER 14:23 → 5EST 18:19 → EDBEDREQ 18:23 → EDBEDREQSVC 18:24 → ENRESERV 19:37 → 5EST 23:32
PROVIDERS: ADMIT Internal Medicine; ATTEND Internal Medicine
PROC: 5A1955Z Respiratory Ventilation, Greater than 96 Consecutive Hours (ICD-10-PCS; principal; 2018-02-07)
PROC: 30233N1 Transfusion of Nonautologous Red Blood Cells into Peripheral Vein, Percutaneous Approach (ICD-10-PCS; 2018-02-08)
PROC: 0QBN0ZZ Excision of Right Metatarsal, Open Approach (ICD-10-PCS; 2018-02-11)
PROC: 02HV33Z Insertion of Infusion Device into Superior Vena Cava, Percutaneous Approach (ICD-10-PCS; 2018-02-14)
PROC: B548ZZA Ultrasonography of Superior Vena Cava, Guidance (ICD-10-PCS; 2018-02-14)
DX: A40.1 Sepsis due to streptococcus, group B (principal); E43 Unspecified severe protein-calorie malnutrition; J15.1 Pneumonia due to Pseudomonas; E87.1 Hypo-osmolality and hyponatremia; J96.10 Chronic respiratory failure, unspecified whether with hypoxia or hypercapnia; Z99.11 Dependence on respirator [ventilator] status; M86.672 Other chronic osteomyelitis, left ankle and foot; M86.171 Other acute osteomyelitis, right ankle and foot; M86.671 Other chronic osteomyelitis, right ankle and foot; N17.9 Acute kidney failure, unspecified; N39.0 Urinary tract infection, site not specified; E11.65 Type 2 diabetes mellitus with hyperglycemia; B95.2 Enterococcus as the cause of diseases classified elsewhere; B96.5 Pseudomonas (aeruginosa) (mallei) (pseudomallei) as the cause of diseases classified elsewhere; E11.51 Type 2 diabetes mellitus with diabetic peripheral angiopathy without gangrene; E11.59 Type 2 diabetes mellitus with other circulatory complications; E11.621 Type 2 diabetes mellitus with foot ulcer; E11.69 Type 2 diabetes mellitus with other specified complication; E86.0 Dehydration; G83.9 Paralytic syndrome, unspecified; Z16.21 Resistance to vancomycin; B96.4 Proteus (mirabilis) (morganii) as the cause of diseases classified elsewhere; I11.9 Hypertensive heart disease without heart failure; I25.10 Atherosclerotic heart disease of native coronary artery without angina pectoris; L97.519 Non-pressure chronic ulcer of other part of right foot with unspecified severity; L97.529 Non-pressure chronic ulcer of other part of left foot with unspecified severity; Z66 Do not resuscitate; D64.9 Anemia, unspecified; E87.5 Hyperkalemia; E83.52 Hypercalcemia; L89.619 Pressure ulcer of right heel, unspecified stage; L89.629 Pressure ulcer of left heel, unspecified stage; L89.329 Pressure ulcer of left buttock, unspecified stage; L89.319 Pressure ulcer of right buttock, unspecified stage; Z88.5 Allergy status to narcotic agent; Z88.0 Allergy status to penicillin; Z88.8 Allergy status to other drugs, medicaments and biological substances; Z93.0 Tracheostomy status; Z86.73 Personal history of transient ischemic attack (TIA), and cerebral infarction without residual deficits; Z79.4 Long term (current) use of insulin; Z68.36 Body mass index [BMI] 36.0-36.9, adult; Z79.899 Other long term (current) drug therapy; Z93.1 Gastrostomy status
CPT/HCPCS: 36415; 36569; 36600; 71045; 73630; 76937; 80048; 80053; 80200; 80202; 81003; 82270; 82375; 82550; 82805; 82962; 83605; 83735; 83880; 84100; 84484; 85014; 85018; 85025; 85027; 85049; 85384; 85610; 85730; 86850; 86900; 86920; 87040; 87070; 87077; 87086; 87186; 87205; 88311; 93005; 93923; 94002; 94003; 94640; 96365; 96372; 96375; 99291; A6261; C1725; J0878; J1815; J1940; J1956; J3260; J3370; J3490; J7030; J7040; J7050; J7060; J7608; J7620; J8597; P9016

== ENCOUNTER 2018-03-31 14:49 | Inpatient (IN) | payer MEDICARE, MEDICAID ==
[~2018-03-31] VITALS: Ht 157.5 cm; Wt 82.6 kg
[~2018-03-31 14:49] MED LIST changes: +ACET650S25 GT; +DOCU-138 GT; +INSU100I28 SQ; +MULT-379 GT
[2018-03-31] MEDS ORDERED: SODIUM CHLORIDE 0.9% 1,000 ML IV ONE ×2 (15:02→16:39)
[2018-03-31 16:09] LABS: HEMATOCRIT. 21.1 % (36.0-48.0); MEAN CORPUSCULAR HEMOGLOBIN 28.2 pg (28.0-32.0); MEAN CORPUSCULAR VOLUME 88.2 fL (81.0-99.0); MEAN PLATELET VOLUME 7.8 fl (7.4-10.4); PLATELET 605 x1000/uL (130-400); RED BLOOD CELL COUNT 2.39 mill/uL (4.2-5.4)
[2018-03-31 16:10] LABS: CHLORIDE 87 mEq/L (98-107)
[2018-03-31 16:12] LABS: INR 1.2; PROTHROMBIN TIME 11.7 sec (9.1-11.1)
[2018-03-31 16:14] LABS: HEMOGLOBIN. 6.7 g/dL (12.0-16.0)
[2018-03-31 16:37] LABS: PLATELET ESTIMATE INCREASED
[2018-03-31] MEDS ORDERED: INSULIN REGULAR (HUMULIN R) 300UNITS/3ML IV ONE (16:45)
[2018-03-31] MEDS ORDERED: SODIUM BICARBONATE 8.4% 1 MEQ/ML 50ML SYR IV ONE (16:45)
[2018-03-31] MEDS ORDERED: DEXTROSE 50% WATER 50ML SYRINGE IV ONE (16:45)
[2018-03-31] MEDS ORDERED: CALCIUM GLUCONATE 1,000 MG in DEXT 5% WATER 100 ML IV ONE (16:45)
[2018-03-31] MEDS ORDERED: ALBUTEROL (0.083%) 2.5MG/3ML NEB HHN SCH (16:45)
[2018-03-31 18:56] VITALS: BP 109/45
[2018-03-31 20:00] VITALS: BP 115/55
[2018-03-31] MEDS ORDERED: DEXTROSE 50% WATER 50ML SYRINGE IV PRN (20:45)
[2018-03-31] MEDS ORDERED: BLOOD SUGAR DIAGNOSTIC STRIP TEST SCH (20:45)
[2018-03-31] MEDS ORDERED: IPRATROPIUM/ALBUTEROL 0.5-3(2.5)MG/3ML NEB HHN PRN (20:45)
[2018-03-31] MEDS ORDERED: INSULIN LISPRO 100 UNITS/ML SUBCUT SCH (21:00)
[2018-03-31 22:00] VITALS: BP 147/66
[2018-03-31] MEDS: SODIUM CHLORIDE 0.9% 1,000 ML IV SCH (22:48)
[2018-03-31 23:30] VITALS: BP 127/55
[2018-03-31 23:45] VITALS: BP 116/63
[2018-03-31] MEDS: SODIUM POLYSTYRENE SULFONATE 15 G/60 ML BOT GT SCH (23:59)
[2018-04-01] VITALS (15 sets, daily range): BP systolic 114–159; BP diastolic 48–65
[2018-04-01] MEDS ORDERED: LEVOFLOXACIN 500MG PREMIX 100 ML IV NR
[2018-04-01] MEDS: IPRATROPIUM/ALBUTEROL 0.5-3(2.5)MG/3ML NEB HHN SCH ×7 (00:21→23:46)
[2018-04-01] MEDS: BLOOD SUGAR DIAGNOSTIC STRIP TEST SCH ×4 (00:26→23:38)
[2018-04-01] MEDS: INSULIN LISPRO 100 UNITS/ML SUBCUT SCH ×3 (00:26→23:37)
[2018-04-01] MEDS ORDERED: VANCOMYCIN 1 G PREMIX 200 ML IV NR (00:30)
[2018-04-01] MEDS: SODIUM POLYSTYRENE SULFONATE 15 G/60 ML BOT GT SCH (06:00)
[2018-04-01 08:21] LABS: CLARITY URINE TURBID (CLEAR); COLOR URINE YELLOW (YELLOW); KETONES URINE NEGATIVE (NEGATIVE); LEUKOCYTE ESTERASE URINE 3+ (NEGATIVE); NITRITE URINE NEGATIVE (NEGATIVE); OCCULT BLOOD URINE 3+ (NEGATIVE); PH URINE 7.5 (4.5-8.0); PROTEIN URINE 2+ (NEGATIVE); SPECIFIC GRAVITY URINE 1.012 (1.005-1.030); UROBILINOGEN URINE 0.2 E.U./dL (0.2-1.0)
[2018-04-01] MEDS: PANTOPRAZOLE SODIUM 40 MG/VIAL IV SCH (08:37)
[2018-04-01 10:54] LABS: HEMOGLOBIN. 10.4 g/dL (12.0-16.0); MEAN CORPUSCULAR HEMOGLOBIN 29.4 pg (28.0-32.0); MEAN CORPUSCULAR VOLUME 87.7 fL (81.0-99.0); MEAN PLATELET VOLUME 7.8 fl (7.4-10.4); PLATELET 588 x1000/uL (130-400); RED BLOOD CELL COUNT 3.53 mill/uL (4.2-5.4); RED CELL DISTRIBUTION WIDTH 16.3 % (11.6-14.6)
[2018-04-01] MEDS ORDERED: INSULIN GLARGINE UD 100 UNITS/ML SYR SUBCUT NR (14:00)
[2018-04-01 15:56] LABS: PLATELET ESTIMATE INCREASED
[2018-04-01] MEDS: SODIUM POLYSTYRENE SULFONATE 15 G/60 ML BOT PO SCH ×2 (20:04→23:38)
[2018-04-01] MEDS: DOXYCYCLINE HYCLATE 100MG CAPSULE PO SCH (21:49)
[2018-04-01] MEDS: SODIUM CHLORIDE 0.9% 1,000 ML IV SCH (21:49)
[2018-04-01] MEDS ORDERED: INSULIN GLARGINE UD 100 UNITS/ML SYR SUBCUT SCH (22:00)
[2018-04-02] VITALS (12 sets, daily range): BP systolic 103–142; BP diastolic 40–76
[2018-04-02] MEDS: IPRATROPIUM/ALBUTEROL 0.5-3(2.5)MG/3ML NEB HHN SCH ×5 (04:05→20:33)
[2018-04-02] MEDS: INSULIN LISPRO 100 UNITS/ML SUBCUT SCH ×4 (06:47→23:44)
[2018-04-02] MEDS: BLOOD SUGAR DIAGNOSTIC STRIP TEST SCH ×4 (06:47→23:44)
[2018-04-02 06:48] LABS: HEMATOCRIT. 30.4 % (36.0-48.0); HEMOGLOBIN. 9.9 g/dL (12.0-16.0); MEAN CORPUSCULAR HEMOGLOBIN 28.9 pg (28.0-32.0); MEAN PLATELET VOLUME 7.8 fl (7.4-10.4); PLATELET 588 x1000/uL (130-400); RED BLOOD CELL COUNT 3.42 mill/uL (4.2-5.4); RED CELL DISTRIBUTION WIDTH 16.7 % (11.6-14.6)
[2018-04-02 07:22] LABS: PHOSPHORUS 3.4 mg/dL (2.5-4.9)
[2018-04-02] MEDS: DOXYCYCLINE HYCLATE 100MG CAPSULE PO SCH ×2 (10:04→21:34)
[2018-04-02] MEDS: SODIUM CHLORIDE 0.9% 1,000 ML IV SCH ×2 (10:04→23:43)
[2018-04-02] MEDS: PANTOPRAZOLE SODIUM 40 MG/VIAL IV SCH (10:04)
[2018-04-02 10:33] LABS: PLATELET ESTIMATE INCREASED
[2018-04-02] MEDS: INSULIN GLARGINE UD 100 UNITS/ML SYR SUBCUT SCH ×2 (12:48→23:44)
[2018-04-02] MEDS ORDERED: LEVOFLOXACIN 250MG PREMIX 50 ML IV SCH ×3 (14:00→22:00)
[2018-04-02] MEDS ORDERED: VANCOMYCIN 750 MG PREMIX 150 ML IV SCH (21:00)
[2018-04-03] VITALS (12 sets, daily range): BP systolic 103–144; BP diastolic 44–78
[2018-04-03] MEDS: IPRATROPIUM/ALBUTEROL 0.5-3(2.5)MG/3ML NEB HHN SCH ×6 (01:07→20:09)
[2018-04-03 06:38] LABS: HEMATOCRIT. 29.1 % (36.0-48.0); HEMOGLOBIN. 9.5 g/dL (12.0-16.0); MEAN CORPUSCULAR HEMOGLOBIN 29.5 pg (28.0-32.0); MEAN CORPUSCULAR VOLUME 90.1 fL (81.0-99.0); MEAN PLATELET VOLUME 7.8 fl (7.4-10.4); PLATELET 532 x1000/uL (130-400); RED BLOOD CELL COUNT 3.23 mill/uL (4.2-5.4)
[2018-04-03] MEDS: BLOOD SUGAR DIAGNOSTIC STRIP TEST SCH ×3 (06:39→18:00)
[2018-04-03] MEDS: INSULIN LISPRO 100 UNITS/ML SUBCUT SCH ×3 (06:39→17:59)
[2018-04-03 06:52] LABS: PHOSPHORUS 3.1 mg/dL (2.5-4.9)
[2018-04-03 08:47] LABS: PLATELET ESTIMATE INCREASED
[2018-04-03] MEDS: DOXYCYCLINE HYCLATE 100MG CAPSULE PO SCH (09:33)
[2018-04-03] MEDS: PANTOPRAZOLE SODIUM 40 MG/VIAL IV SCH (09:33)
[2018-04-03] MEDS: INSULIN GLARGINE UD 100 UNITS/ML SYR SUBCUT SCH ×2 (11:22→21:55)
[2018-04-03] MEDS: SODIUM CHLORIDE 0.9% 1,000 ML IV SCH (11:23)
[2018-04-04] VITALS (12 sets, daily range): BP systolic 119–137; BP diastolic 42–66
[2018-04-04] MEDS: IPRATROPIUM/ALBUTEROL 0.5-3(2.5)MG/3ML NEB HHN SCH ×6 (00:06→20:13)
[2018-04-04] MEDS: SODIUM CHLORIDE 0.9% 1,000 ML IV SCH (05:56)
[2018-04-04] MEDS: BLOOD SUGAR DIAGNOSTIC STRIP TEST SCH ×4 (06:35→16:52)
[2018-04-04] MEDS: INSULIN LISPRO 100 UNITS/ML SUBCUT SCH ×4 (06:39→17:45)
[2018-04-04 07:30] LABS: HEMATOCRIT. 30.4 % (36.0-48.0); HEMOGLOBIN. 9.8 g/dL (12.0-16.0); MEAN CORPUSCULAR HEMOGLOBIN 29.8 pg (28.0-32.0); MEAN PLATELET VOLUME 8.4 fl (7.4-10.4); PLATELET 539 x1000/uL (130-400); RED CELL DISTRIBUTION WIDTH 17.4 % (11.6-14.6)
[2018-04-04 07:42] LABS: PHOSPHORUS 2.5 mg/dL (2.5-4.9)
[2018-04-04 08:32] LABS: BG BASE EXCESS -1.3 mmol/L (-2.0-2.0); BG CARBOXYHEMOGLOBIN 0.2 % (0.5-1.5); BG FRACTION INSPIRED OXYGEN 40; BG HCO3 ACT 23.6 mmol/L (22.0-26.0); BG METHEMOGLOBIN 0.2 % (0.0-1.5); BG OXYHEMOGLOBIN 98.6 % (94.0-97.0); BG PCO2 39.9 mmHg (35.0-45.0); BG PH 7.389 (7.350-7.450); BG PO2 145.8 mmHg (75.0-100.0); BG SAMPLE SITE RIGHT RADIAL; BG TIDAL VOLUME(mL) 500 mL; BG TOTAL HEMOGLOBIN 9.9 g/dL (12.0-18.0); BG VENT MODE VENT - A/C; BG VENT RATE 10 set
[2018-04-04] MEDS: PANTOPRAZOLE SODIUM 40 MG/VIAL IV SCH (09:25)
[2018-04-04 09:37] LABS: PLATELET ESTIMATE INCREASED
[2018-04-04] MEDS ORDERED: FOSFOMYCIN TROMETHAMINE 3 GM PACKET GT SCH (10:00)
[2018-04-04] MEDS ORDERED: MAGNESIUM 2 G PREMIX 50 ML IV SCH (11:00)
[2018-04-04] MEDS: INSULIN GLARGINE UD 100 UNITS/ML SYR SUBCUT SCH ×2 (12:02→23:35)
[2018-04-05] VITALS (12 sets, daily range): BP systolic 133–168; BP diastolic 57–85
[2018-04-05] MEDS: BLOOD SUGAR DIAGNOSTIC STRIP TEST SCH ×4 (00:19→18:29)
[2018-04-05] MEDS: INSULIN LISPRO 100 UNITS/ML SUBCUT SCH ×4 (00:24→18:39)
[2018-04-05] MEDS: IPRATROPIUM/ALBUTEROL 0.5-3(2.5)MG/3ML NEB HHN SCH ×6 (00:42→19:44)
[2018-04-05 08:51] LABS: HEMATOCRIT. 30.5 % (36.0-48.0); HEMOGLOBIN. 9.8 g/dL (12.0-16.0); MEAN CORPUSCULAR HEMOGLOBIN 29.7 pg (28.0-32.0); MEAN CORPUSCULAR VOLUME 92.4 fL (81.0-99.0); MEAN PLATELET VOLUME 8.2 fl (7.4-10.4); PLATELET 513 x1000/uL (130-400); RED CELL DISTRIBUTION WIDTH 17.9 % (11.6-14.6)
[2018-04-05] MEDS ORDERED: FAMOTIDINE 20MG/2ML VIAL IV SCH (09:00)
[2018-04-05 09:38] LABS: PHOSPHORUS 2.4 mg/dL (2.5-4.9)
[2018-04-05] MEDS ORDERED: INSULIN GLARGINE UD 100 UNITS/ML SYR SUBCUT SCH (12:00)
[2018-04-05 14:27] LABS: PLATELET ESTIMATE INCREASED
== END 2018-04-05 21:20 | DRG 870 ==
LOC: ER 14:59 → 5EST 16:52 → EDBEDREQ 17:16 → EDBEDREQTM 17:16 → ENRESERV 17:58
PROVIDERS: ADMIT Internal Medicine; ATTEND Internal Medicine
PROC: 5A1955Z Respiratory Ventilation, Greater than 96 Consecutive Hours (ICD-10-PCS; principal; 2018-03-31)
PROC: 30233N1 Transfusion of Nonautologous Red Blood Cells into Peripheral Vein, Percutaneous Approach (ICD-10-PCS; 2018-03-31)
DX: A41.59 Other Gram-negative sepsis (principal); L89.894 Pressure ulcer of other site, stage 4; E43 Unspecified severe protein-calorie malnutrition; R40.20 Unspecified coma; J96.10 Chronic respiratory failure, unspecified whether with hypoxia or hypercapnia; N17.9 Acute kidney failure, unspecified; Z99.11 Dependence on respirator [ventilator] status; E87.1 Hypo-osmolality and hyponatremia; N39.0 Urinary tract infection, site not specified; M86.8X7 Other osteomyelitis, ankle and foot; L97.429 Non-pressure chronic ulcer of left heel and midfoot with unspecified severity; L97.419 Non-pressure chronic ulcer of right heel and midfoot with unspecified severity; M86.171 Other acute osteomyelitis, right ankle and foot; E11.52 Type 2 diabetes mellitus with diabetic peripheral angiopathy with gangrene; L97.319 Non-pressure chronic ulcer of right ankle with unspecified severity; L03.311 Cellulitis of abdominal wall; Z66 Do not resuscitate; Z51.5 Encounter for palliative care; E87.5 Hyperkalemia; L89.90 Pressure ulcer of unspecified site, unspecified stage; D64.9 Anemia, unspecified; I25.10 Atherosclerotic heart disease of native coronary artery without angina pectoris; Z16.21 Resistance to vancomycin; R13.10 Dysphagia, unspecified; E83.52 Hypercalcemia; E11.65 Type 2 diabetes mellitus with hyperglycemia; I10 Essential (primary) hypertension; E11.69 Type 2 diabetes mellitus with other specified complication; E86.1 Hypovolemia; E11.622 Type 2 diabetes mellitus with other skin ulcer; E66.01 Morbid (severe) obesity due to excess calories; E11.621 Type 2 diabetes mellitus with foot ulcer; B95.2 Enterococcus as the cause of diseases classified elsewhere; L89.619 Pressure ulcer of right heel, unspecified stage; L97.529 Non-pressure chronic ulcer of other part of left foot with unspecified severity; Z93.0 Tracheostomy status; Z86.73 Personal history of transient ischemic attack (TIA), and cerebral infarction without residual deficits; Z88.0 Allergy status to penicillin; Z93.1 Gastrostomy status; Z88.8 Allergy status to other drugs, medicaments and biological substances; Z88.6 Allergy status to analgesic agent; Z79.899 Other long term (current) drug therapy; Z87.440 Personal history of urinary (tract) infections; Z87.01 Personal history of pneumonia (recurrent); Z68.33 Body mass index [BMI] 33.0-33.9, adult
CPT/HCPCS: 36415; 36430; 36600; 71045; 76770; 80048; 80053; 80202; 81003; 82270; 82375; 82570; 82805; 82962; 83540; 83550; 83735; 83935; 83970; 84100; 84300; 84443; 84550; 85025; 85610; 86850; 86900; 86920; 87040; 87077; 87086; 87186; 93005; 94002; 94003; 94640; 96365; 96375; 99291; A6261; C9113; J0610; J1815; J1956; J3370; J3475; J3490; J7030; J7050; J7060; J7517; J7611; J7620; P9016

== ENCOUNTER 2018-05-01 14:55 | Inpatient (IN) | payer MEDICARE, MEDICAID ==
[~2018-05-01] VITALS: Ht 157.5 cm; Wt 86.6 kg
[2018-05-01] MEDS ORDERED: VANCOMYCIN 1 G PREMIX 200 ML IV SCH ×2 (15:30→16:15)
[2018-05-01] MEDS ORDERED: SODIUM CHLORIDE 0.9% 1000ML BAG (SEPSIS BOLUS) IV ONE (15:30)
[2018-05-01] MEDS ORDERED: LEVOFLOXACIN 750MG PREMIX 150 ML IV ONE (15:30)
[2018-05-01] MEDS ORDERED: IPRATROPIUM/ALBUTEROL 0.5-3(2.5)MG/3ML NEB INH PRN (16:15)
[2018-05-01] MEDS ORDERED: LEVOFLOXACIN 500MG PREMIX 100 ML IV SCH (16:15)
[2018-05-01] MEDS ORDERED: ONDANSETRON HCL 4MG/2ML INJ IV PRN (16:15)
[2018-05-01 16:24] LABS: HEMATOCRIT. 25.7 % (36.0-48.0); HEMOGLOBIN. 8.4 g/dL (12.0-16.0); INR 1.1; MEAN CORPUSCULAR HEMOGLOBIN 29.4 pg (28.0-32.0); MEAN CORPUSCULAR VOLUME 90.2 fL (81.0-99.0); MEAN PLATELET VOLUME 8.4 fl (7.4-10.4); PARTIAL THROMBOPLASTIN TIME 25.2 sec (23.4-31.0); PLATELET 710 x1000/uL (130-400); PROTHROMBIN TIME 11.1 sec (9.1-11.1); RED BLOOD CELL COUNT 2.85 mill/uL (4.2-5.4); RED CELL DISTRIBUTION WIDTH 17.7 % (11.6-14.6)
[2018-05-01 16:26] LABS: CHLORIDE 82 mEq/L (98-107)
[2018-05-01 17:00] LABS: PLATELET ESTIMATE INCREASED
[2018-05-01 17:13] LABS: CLARITY URINE CLOUDY (CLEAR); COLOR URINE YELLOW (YELLOW); KETONES URINE NEGATIVE (NEGATIVE); LEUKOCYTE ESTERASE URINE 3+ (NEGATIVE); NITRITE URINE NEGATIVE (NEGATIVE); OCCULT BLOOD URINE TRACE (NEGATIVE); PROTEIN URINE 1+ (NEGATIVE); SPECIFIC GRAVITY URINE 1.014 (1.005-1.030); UROBILINOGEN URINE 0.2 E.U./dL (0.2-1.0)
[2018-05-01] MEDS ORDERED: FLUCONAZOLE 100MG TABLET PEG ONE (17:45)
[2018-05-02] VITALS (12 sets, daily range): BP systolic 115–148; BP diastolic 51–72
[2018-05-02] MEDS: VANCOMYCIN 750 MG PREMIX 150 ML IV SCH (06:48)
[2018-05-02] MEDS ORDERED: DEXTROSE 50% WATER 50ML SYRINGE IV PRN ×2 (08:00)
[2018-05-02] MEDS: HYDROCORTISONE 20MG TABLET GT SCH ×3 (08:32→21:45)
[2018-05-02] MEDS: INSULIN LISPRO 100 UNITS/ML SUBCUT SCH ×4 (08:32→21:00)
[2018-05-02] MEDS: METRONIDAZOLE 500MG TABLET GT SCH ×2 (09:59→21:19)
[2018-05-02] MEDS ORDERED: INSULIN GLARGINE UD 100 UNITS/ML SYR SUBCUT SCH (10:00)
[2018-05-02 10:46] LABS: BASOPHILS % 0.2 % (0.0-2.0); EOSINOPHILS % 0.6 % (0.0-5.0); LYMPHOCYTES % 10.7 % (20.0-50.0); MEAN CORPUSCULAR VOLUME 89.5 fL (81.0-99.0); MEAN PLATELET VOLUME 8.4 fl (7.4-10.4); MONOCYTES % 7.8 % (2.0-8.0); NEUTROPHILS % 80.7 % (40.0-76.0); PLATELET 681 x1000/uL (130-400); RED BLOOD CELL COUNT 2.37 mill/uL (4.2-5.4); RED CELL DISTRIBUTION WIDTH 17.5 % (11.6-14.6)
[2018-05-02 10:56] LABS: HEMATOCRIT. 21.2 % (36.0-48.0); HEMOGLOBIN. 6.9 g/dL (12.0-16.0)
[2018-05-02 11:12] LABS: PHOSPHORUS 2.2 mg/dL (2.5-4.9)
[2018-05-02] MEDS: BLOOD SUGAR DIAGNOSTIC STRIP TEST SCH ×3 (12:07→21:20)
[2018-05-02] MEDS: LEVOFLOXACIN 500MG PREMIX 100 ML IV SCH (13:43)
[2018-05-02] MEDS ORDERED: POTASSIUM PHOS,M-BASIC-D-BASIC 20 MMOL in DEXT 5% WATER 243.3333 ML IV SCH (14:00)
[2018-05-02] MEDS: SODIUM CHL 0.9% + KCL 20MEQ/L 1,000 ML IV SCH (14:44)
[2018-05-02] MEDS: PANTOPRAZOLE SODIUM 40 MG/VIAL IV SCH (14:45)
[2018-05-02 17:03] LABS: BG BASE EXCESS 8.4 mmol/L (-2.0-2.0); BG CARBOXYHEMOGLOBIN 0.5 % (0.5-1.5); BG DEOXYHEMOGLOBIN 0.6 % (0.0-5.0); BG FRACTION INSPIRED OXYGEN 40; BG HCO3 ACT 32.8 mmol/L (22.0-26.0); BG METHEMOGLOBIN 0.2 % (0.0-1.5); BG OXYGEN SATURATION 99.4 % (92.0-98.5); BG OXYHEMOGLOBIN 98.7 % (94.0-97.0); BG PCO2 45.7 mmHg (35.0-45.0); BG PH 7.474 (7.350-7.450); BG PO2 172.2 mmHg (75.0-100.0); BG SAMPLE SITE RIGHT RADIAL; BG TIDAL VOLUME(mL) 500 mL; BG TOTAL HEMOGLOBIN 7.5 g/dL (12.0-18.0); BG VENT MODE VENT - A/C; BG VENT RATE 10 set
[2018-05-02] MEDS: IPRATROPIUM/ALBUTEROL 0.5-3(2.5)MG/3ML NEB HHN SCH (21:00)
[2018-05-03] VITALS (16 sets, daily range): BP systolic 114–154; BP diastolic 48–78
[2018-05-03] MEDS: VANCOMYCIN 750 MG PREMIX 150 ML IV SCH (01:10)
[2018-05-03] MEDS: IPRATROPIUM/ALBUTEROL 0.5-3(2.5)MG/3ML NEB HHN SCH ×4 (02:07→20:16)
[2018-05-03] MEDS: BLOOD SUGAR DIAGNOSTIC STRIP TEST SCH ×3 (07:10→16:59)
[2018-05-03 07:16] LABS: BASOPHILS % 0.4 % (0.0-2.0); EOSINOPHILS % 0.2 % (0.0-5.0); LYMPHOCYTES % 16.7 % (20.0-50.0); MEAN CORPUSCULAR HEMOGLOBIN 29.3 pg (28.0-32.0); MEAN CORPUSCULAR VOLUME 90.5 fL (81.0-99.0); MEAN PLATELET VOLUME 8.3 fl (7.4-10.4); NEUTROPHILS % 70.7 % (40.0-76.0); PLATELET 669 x1000/uL (130-400); RED BLOOD CELL COUNT 2.29 mill/uL (4.2-5.4); RED CELL DISTRIBUTION WIDTH 17.9 % (11.6-14.6)
[2018-05-03 07:24] LABS: HEMATOCRIT. 20.7 % (36.0-48.0); HEMOGLOBIN. 6.7 g/dL (12.0-16.0)
[2018-05-03] MEDS: INSULIN LISPRO 100 UNITS/ML SUBCUT SCH ×3 (07:25→17:13)
[2018-05-03] MEDS: METRONIDAZOLE 500MG TABLET GT SCH ×2 (08:09→21:27)
[2018-05-03] MEDS: HYDROCORTISONE 20MG TABLET GT SCH ×2 (08:10→21:28)
[2018-05-03] MEDS: PANTOPRAZOLE SODIUM 40 MG/VIAL IV SCH (08:10)
[2018-05-03] MEDS: SODIUM CHL 0.9% + KCL 20MEQ/L 1,000 ML IV SCH (08:30)
[2018-05-03 08:52] LABS: CHLORIDE 96 mEq/L (98-107)
[2018-05-03 09:01] LABS: HDL CHOLESTEROL 19 mg/dL (40-59); LDL CHOLESTEROL 73 mg/dL (5-100); PHOSPHORUS 2.5 mg/dL (2.5-4.9)
[2018-05-03] MEDS ORDERED: INSULIN GLARGINE UD 100 UNITS/ML SYR SUBCUT SCH ×2 (11:00→22:00)
[2018-05-03] MEDS: LEVOFLOXACIN 500MG PREMIX 100 ML IV SCH (13:26)
[2018-05-03] MEDS: ACETAMINOPHEN 325MG TABLET GT PRN (17:56)
[2018-05-03] MEDS: INSULIN GLARGINE UD 100 UNITS/ML SYR SUBCUT SCH (21:37)
[2018-05-04] VITALS (12 sets, daily range): BP systolic 136–163; BP diastolic 64–81
[2018-05-04] MEDS: BLOOD SUGAR DIAGNOSTIC STRIP TEST SCH ×4 (00:42→17:55)
[2018-05-04] MEDS: INSULIN LISPRO 100 UNITS/ML SUBCUT SCH ×4 (00:46→18:04)
[2018-05-04] MEDS: IPRATROPIUM/ALBUTEROL 0.5-3(2.5)MG/3ML NEB HHN SCH ×4 (02:24→22:10)
[2018-05-04] MEDS: SODIUM CHL 0.9% + KCL 20MEQ/L 1,000 ML IV SCH (04:30)
[2018-05-04 07:01] LABS: BASOPHILS % 0.2 % (0.0-2.0); HEMATOCRIT. 23.9 % (36.0-48.0); HEMOGLOBIN. 7.7 g/dL (12.0-16.0); LYMPHOCYTES % 11.3 % (20.0-50.0); MEAN CORPUSCULAR HEMOGLOBIN 29.5 pg (28.0-32.0); MEAN CORPUSCULAR VOLUME 91.1 fL (81.0-99.0); MEAN PLATELET VOLUME 8.2 fl (7.4-10.4); MONOCYTES % 11.2 % (2.0-8.0); NEUTROPHILS % 77.3 % (40.0-76.0); PLATELET 611 x1000/uL (130-400); RED BLOOD CELL COUNT 2.63 mill/uL (4.2-5.4); RED CELL DISTRIBUTION WIDTH 16.9 % (11.6-14.6)
[2018-05-04] MEDS: METRONIDAZOLE 500MG TABLET GT SCH ×2 (09:14→21:27)
[2018-05-04] MEDS: HYDROCORTISONE 20MG TABLET GT SCH ×2 (09:15→21:28)
[2018-05-04] MEDS: PANTOPRAZOLE SODIUM 40 MG/VIAL IV SCH (09:15)
[2018-05-04] MEDS: INSULIN GLARGINE UD 100 UNITS/ML SYR SUBCUT SCH ×2 (09:27→21:41)
[2018-05-04] MEDS ORDERED: VANCOMYCIN 750 MG PREMIX 150 ML IV SCH (14:00)
[2018-05-04] MEDS: LEVOFLOXACIN 500MG PREMIX 100 ML IV SCH (15:52)
[2018-05-04] MEDS ORDERED: AMIKACIN SULFATE IV SCH (16:00)
[2018-05-04] MEDS ORDERED: SODIUM CHLORIDE 0.9% IV SCH (16:00)
[2018-05-04] MEDS: LINEZOLID 600 MG PREMIX 300 ML IV SCH (17:29)
[2018-05-05] VITALS (12 sets, daily range): BP systolic 128–168; BP diastolic 60–81
[2018-05-05] MEDS: IPRATROPIUM/ALBUTEROL 0.5-3(2.5)MG/3ML NEB HHN SCH ×4 (02:06→20:59)
[2018-05-05] MEDS: LINEZOLID 600 MG PREMIX 300 ML IV SCH ×2 (05:14→18:09)
[2018-05-05] MEDS: SODIUM CHL 0.9% + KCL 20MEQ/L 1,000 ML IV SCH (05:14)
[2018-05-05] MEDS: BLOOD SUGAR DIAGNOSTIC STRIP TEST SCH ×4 (06:00→18:17)
[2018-05-05 06:11] LABS: BASOPHILS % 0.3 % (0.0-2.0); EOSINOPHILS % 0.1 % (0.0-5.0); HEMATOCRIT. 23.7 % (36.0-48.0); HEMOGLOBIN. 7.8 g/dL (12.0-16.0); LYMPHOCYTES % 13.3 % (20.0-50.0); MEAN CORPUSCULAR HEMOGLOBIN 30.1 pg (28.0-32.0); MEAN CORPUSCULAR VOLUME 91.1 fL (81.0-99.0); MONOCYTES % 10.4 % (2.0-8.0); NEUTROPHILS % 75.9 % (40.0-76.0); PLATELET 621 x1000/uL (130-400); RED CELL DISTRIBUTION WIDTH 17.3 % (11.6-14.6)
[2018-05-05 06:39] LABS: CHLORIDE 102 mEq/L (98-107)
[2018-05-05 06:44] LABS: PHOSPHORUS 1.9 mg/dL (2.5-4.9)
[2018-05-05] MEDS: INSULIN LISPRO 100 UNITS/ML SUBCUT SCH ×4 (07:03→18:29)
[2018-05-05] MEDS: METRONIDAZOLE 500MG TABLET GT SCH ×2 (09:56→22:01)
[2018-05-05] MEDS: PANTOPRAZOLE SODIUM 40 MG/VIAL IV SCH (09:56)
[2018-05-05] MEDS: HYDROCORTISONE 20MG TABLET GT SCH ×2 (09:56→22:02)
[2018-05-05] MEDS: SODIUM CHLORIDE 0.9% 1,000 ML IV SCH (09:57)
[2018-05-05] MEDS: INSULIN GLARGINE UD 100 UNITS/ML SYR SUBCUT SCH ×2 (09:58→22:09)
[2018-05-05] MEDS ORDERED: SODIUM POLYSTYRENE SULFONATE 15 G/60 ML BOT PO NR (10:30)
[2018-05-05] MEDS: LEVOFLOXACIN 500MG PREMIX 100 ML IV SCH (15:22)
[2018-05-05] MEDS ORDERED: AMIKACIN SULFATE 500 MG in SODIUM CHLORIDE 0.9% 100 ML IV NR (17:30)
[2018-05-05] MEDS: ACETAMINOPHEN 325MG TABLET GT PRN (18:20)
[2018-05-06] VITALS (21 sets, daily range): BP systolic 137–187; BP diastolic 67–91
[2018-05-06] MEDS: BLOOD SUGAR DIAGNOSTIC STRIP TEST SCH ×5 (00:32→23:32)
[2018-05-06] MEDS: IPRATROPIUM/ALBUTEROL 0.5-3(2.5)MG/3ML NEB HHN SCH ×4 (02:15→20:57)
[2018-05-06] MEDS: LINEZOLID 600 MG PREMIX 300 ML IV SCH ×2 (04:42→16:54)
[2018-05-06] MEDS: SODIUM CHLORIDE 0.9% 1,000 ML IV SCH (05:15)
[2018-05-06] MEDS: INSULIN LISPRO 100 UNITS/ML SUBCUT SCH ×5 (06:00→23:45)
[2018-05-06 07:42] LABS: BASOPHILS % 0.5 % (0.0-2.0); EOSINOPHILS % 0.3 % (0.0-5.0); HEMATOCRIT. 27.8 % (36.0-48.0); HEMOGLOBIN. 8.9 g/dL (12.0-16.0); LYMPHOCYTES % 17.8 % (20.0-50.0); MEAN CORPUSCULAR VOLUME 90.6 fL (81.0-99.0); MEAN PLATELET VOLUME 8.2 fl (7.4-10.4); MONOCYTES % 11.1 % (2.0-8.0); NEUTROPHILS % 70.3 % (40.0-76.0); PLATELET 649 x1000/uL (130-400); RED BLOOD CELL COUNT 3.07 mill/uL (4.2-5.4); RED CELL DISTRIBUTION WIDTH 17.3 % (11.6-14.6)
[2018-05-06] MEDS: HYDROCORTISONE 20MG TABLET GT SCH ×2 (08:00→20:28)
[2018-05-06] MEDS: METRONIDAZOLE 500MG TABLET GT SCH ×2 (08:04→20:29)
[2018-05-06] MEDS ORDERED: VANCOMYCIN HCL 500 MG/VIAL ONE ×2 (09:26→10:17)
[2018-05-06] MEDS: PANTOPRAZOLE SODIUM 40 MG/VIAL IV SCH (09:58)
[2018-05-06] MEDS: INSULIN GLARGINE UD 100 UNITS/ML SYR SUBCUT SCH ×2 (10:00→23:43)
[2018-05-06] MEDS ORDERED: ENALAPRIL 2.5MG/2ML VIAL 2ML IV NR (10:15)
[2018-05-06] MEDS ORDERED: MIDAZOLAM HCL 2 MG/2 ML VIAL ONE (11:06)
[2018-05-06] MEDS ORDERED: FENTANYL CITRATE/PF 50MCG/ML 2ML VIAL ONE (11:06)
[2018-05-06] MEDS ORDERED: PROPOFOL 200MG/20ML VIAL IV ONE (11:06)
[2018-05-06] MEDS ORDERED: ROCURONIUM BROMIDE 10MG/ML VIAL 5ML IV ONE (11:11)
[2018-05-06] MEDS ORDERED: BUPIVACAINE HCL 0.5% (5MG/ML) 50ML ONE (11:18)
[2018-05-06] MEDS ORDERED: ONDANSETRON HCL 4MG/2ML INJ IV PRN (11:45)
[2018-05-06] MEDS ORDERED: FENTANYL CITRATE/PF 50MCG/ML 2ML VIAL IV PRN (11:45)
[2018-05-06] MEDS ORDERED: MEPERIDINE HCL/PF 25MG/ML CPJ IV PRN (11:45)
[2018-05-06] MEDS ORDERED: HYDROMORPHONE HCL/PF 2MG/ML CPJ IV PRN ×2 (11:45→16:15)
[2018-05-06 12:56] LABS: HEMATOCRIT 30.4 % (36.0-48.0); MEAN CORPUSCULAR HEMOGLOBIN 29.5 pg (28.0-32.0); MEAN CORPUSCULAR VOLUME 89.7 fL (81.0-99.0); PLATELET 549 x1000/uL (130-400); RED BLOOD CELL COUNT 3.39 mill/uL (4.2-5.4); RED CELL DISTRIBUTION WIDTH 16.8 % (11.6-14.6)
[2018-05-06] MEDS: LEVOFLOXACIN 500MG PREMIX 100 ML IV SCH (14:45)
[2018-05-06] MEDS ORDERED: CLONIDINE HCL 0.1MG/24HR PATCH TD NR (15:30)
[2018-05-06] MEDS ORDERED: HYDROMORPHONE HCL/PF 2MG/ML CPJ IM PRN (16:15)
[2018-05-06 16:40] LABS: CHLORIDE 104 mEq/L (98-107)
[2018-05-06] MEDS: ENALAPRIL 1.25MG/ML VIAL 1ML IV SCH (17:57)
[2018-05-06] MEDS: HYDRALAZINE 20MG/ML VIAL IV PRN (20:16)
[2018-05-07] VITALS (10 sets, daily range): BP systolic 149–183; BP diastolic 64–83
[2018-05-07] MEDS: ENALAPRIL 1.25MG/ML VIAL 1ML IV SCH ×3 (00:14→11:49)
[2018-05-07] MEDS: IPRATROPIUM/ALBUTEROL 0.5-3(2.5)MG/3ML NEB HHN SCH ×4 (02:29→20:24)
[2018-05-07] MEDS: LINEZOLID 600 MG PREMIX 300 ML IV SCH ×2 (04:58→17:42)
[2018-05-07] MEDS: SODIUM CHLORIDE 0.9% 1,000 ML IV SCH (05:10)
[2018-05-07] MEDS: BLOOD SUGAR DIAGNOSTIC STRIP TEST SCH ×3 (06:45→17:42)
[2018-05-07] MEDS: INSULIN LISPRO 100 UNITS/ML SUBCUT SCH ×4 (06:59→23:02)
[2018-05-07 07:35] LABS: BASOPHILS % 0.4 % (0.0-2.0); EOSINOPHILS % 0.5 % (0.0-5.0); HEMATOCRIT. 31.1 % (36.0-48.0); HEMOGLOBIN. 10.1 g/dL (12.0-16.0); LYMPHOCYTES % 20.8 % (20.0-50.0); MEAN CORPUSCULAR HEMOGLOBIN 29.4 pg (28.0-32.0); MEAN CORPUSCULAR VOLUME 90.4 fL (81.0-99.0); MONOCYTES % 12.5 % (2.0-8.0); NEUTROPHILS % 65.8 % (40.0-76.0); PLATELET 643 x1000/uL (130-400); RED BLOOD CELL COUNT 3.44 mill/uL (4.2-5.4); RED CELL DISTRIBUTION WIDTH 16.8 % (11.6-14.6)
[2018-05-07 08:13] LABS: PHOSPHORUS 2.8 mg/dL (2.5-4.9)
[2018-05-07] MEDS: HYDROCORTISONE 20MG TABLET GT SCH ×2 (08:22→20:16)
[2018-05-07] MEDS: METRONIDAZOLE 500MG TABLET GT SCH ×2 (08:22→20:13)
[2018-05-07] MEDS: FAMOTIDINE 20MG/2ML VIAL IV SCH (08:22)
[2018-05-07] MEDS ORDERED: LINEZOLID 600 MG PREMIX 300 ML IV SCH (08:45)
[2018-05-07] MEDS ORDERED: SODIUM POLYSTYRENE SULFONATE 15 G/60 ML BOT GT NR (09:00)
[2018-05-07 10:15] LABS: CLARITY URINE CLOUDY (CLEAR); COLOR URINE YELLOW (YELLOW); KETONES URINE NEGATIVE (NEGATIVE); LEUKOCYTE ESTERASE URINE 3+ (NEGATIVE); NITRITE URINE NEGATIVE (NEGATIVE); OCCULT BLOOD URINE TRACE (NEGATIVE); PH URINE 7.5 (4.5-8.0); PROTEIN URINE 1+ (NEGATIVE); SPECIFIC GRAVITY URINE 1.014 (1.005-1.030); UROBILINOGEN URINE 0.2 E.U./dL (0.2-1.0)
[2018-05-07] MEDS: INSULIN GLARGINE UD 100 UNITS/ML SYR SUBCUT SCH ×2 (11:17→22:53)
[2018-05-07] MEDS: LEVOFLOXACIN 500MG PREMIX 100 ML IV SCH (13:50)
[2018-05-07] MEDS ORDERED: CARVEDILOL 6.25 MG TABLET GT NR (14:15)
[2018-05-07] MEDS ORDERED: AMIKACIN SULFATE 500 MG in SODIUM CHLORIDE 0.9% 100 ML IV SCH (16:30)
[2018-05-07] MEDS: CARVEDILOL 6.25 MG TABLET PO SCH (20:16)
[2018-05-07] MEDS ORDERED: CARVEDILOL 6.25 MG TABLET PO SCH (21:00)
[2018-05-07] MEDS ORDERED: ENALAPRIL 1.25MG/ML VIAL 1ML IV SCH (22:00)
[2018-05-08] VITALS (12 sets, daily range): BP systolic 129–168; BP diastolic 60–79
[2018-05-08] MEDS: IPRATROPIUM/ALBUTEROL 0.5-3(2.5)MG/3ML NEB HHN SCH ×4 (01:39→19:51)
[2018-05-08] MEDS: SODIUM CHLORIDE 0.9% 1,000 ML IV SCH (02:34)
[2018-05-08] MEDS: LINEZOLID 600 MG PREMIX 300 ML IV SCH (05:18)
[2018-05-08] MEDS: BLOOD SUGAR DIAGNOSTIC STRIP TEST SCH ×4 (05:54→17:52)
[2018-05-08] MEDS: INSULIN LISPRO 100 UNITS/ML SUBCUT SCH ×4 (05:55→23:09)
[2018-05-08 07:25] LABS: BASOPHILS % 0.2 % (0.0-2.0); EOSINOPHILS % 0.3 % (0.0-5.0); HEMATOCRIT. 30.3 % (36.0-48.0); HEMOGLOBIN. 9.6 g/dL (12.0-16.0); MEAN CORPUSCULAR HEMOGLOBIN 28.9 pg (28.0-32.0); MEAN CORPUSCULAR VOLUME 91.3 fL (81.0-99.0); MEAN PLATELET VOLUME 7.8 fl (7.4-10.4); MONOCYTES % 12.2 % (2.0-8.0); NEUTROPHILS % 64.3 % (40.0-76.0); PLATELET 566 x1000/uL (130-400); RED BLOOD CELL COUNT 3.32 mill/uL (4.2-5.4)
[2018-05-08 07:53] LABS: CHLORIDE 104 mEq/L (98-107)
[2018-05-08 08:04] LABS: PHOSPHORUS 2.8 mg/dL (2.5-4.9)
[2018-05-08] MEDS: CARVEDILOL 6.25 MG TABLET PO SCH (08:37)
[2018-05-08] MEDS: FAMOTIDINE 20MG/2ML VIAL IV SCH (08:38)
[2018-05-08] MEDS: METRONIDAZOLE 500MG TABLET GT SCH (08:38)
[2018-05-08] MEDS: HYDROCORTISONE 20MG TABLET GT SCH ×2 (08:38→20:30)
[2018-05-08] MEDS ORDERED: MAGNESIUM SULFATE 2 GM in SODIUM CHLORIDE 0.9% 100 ML IV SCH (10:30)
[2018-05-08] MEDS: INSULIN GLARGINE UD 100 UNITS/ML SYR SUBCUT SCH ×2 (11:38→23:08)
[2018-05-08] MEDS: LEVOFLOXACIN 500MG PREMIX 100 ML IV SCH (14:47)
[2018-05-08] MEDS: CARVEDILOL 25MG TABLET PO SCH (20:29)
[2018-05-09] VITALS (13 sets, daily range): BP systolic 100–164; BP diastolic 52–75
[2018-05-09] MEDS: IPRATROPIUM/ALBUTEROL 0.5-3(2.5)MG/3ML NEB HHN SCH ×4 (01:51→20:13)
[2018-05-09] MEDS: BLOOD SUGAR DIAGNOSTIC STRIP TEST SCH ×5 (06:00→23:03)
[2018-05-09] MEDS: INSULIN LISPRO 100 UNITS/ML SUBCUT SCH ×5 (06:11→23:04)
[2018-05-09 06:54] LABS: BASOPHILS % 0.3 % (0.0-2.0); EOSINOPHILS % 0.5 % (0.0-5.0); HEMOGLOBIN. 9.2 g/dL (12.0-16.0); LYMPHOCYTES % 28.7 % (20.0-50.0); MEAN CORPUSCULAR HEMOGLOBIN 30.1 pg (28.0-32.0); MEAN CORPUSCULAR VOLUME 91.2 fL (81.0-99.0); MEAN PLATELET VOLUME 7.5 fl (7.4-10.4); MONOCYTES % 10.6 % (2.0-8.0); NEUTROPHILS % 59.9 % (40.0-76.0); PLATELET 524 x1000/uL (130-400); RED BLOOD CELL COUNT 3.07 mill/uL (4.2-5.4); RED CELL DISTRIBUTION WIDTH 16.7 % (11.6-14.6)
[2018-05-09] MEDS: CARVEDILOL 25MG TABLET PO SCH (09:43)
[2018-05-09] MEDS: FAMOTIDINE 20MG/2ML VIAL IV SCH (09:43)
[2018-05-09] MEDS: HYDROCORTISONE 20MG TABLET GT SCH ×2 (09:44→21:11)
[2018-05-09] MEDS: ACETAMINOPHEN 325MG TABLET GT PRN (10:19)
[2018-05-09] MEDS: INSULIN GLARGINE UD 100 UNITS/ML SYR SUBCUT SCH ×2 (10:27→23:04)
[2018-05-09] MEDS: DILTIAZEM HCL 60MG TABLET PO SCH ×2 (13:49→21:11)
[2018-05-10] VITALS (13 sets, daily range): BP systolic 111–170; BP diastolic 52–77
[2018-05-10] MEDS: IPRATROPIUM/ALBUTEROL 0.5-3(2.5)MG/3ML NEB HHN SCH ×4 (01:46→19:44)
[2018-05-10] MEDS: INSULIN LISPRO 100 UNITS/ML SUBCUT SCH ×4 (06:00→22:56)
[2018-05-10] MEDS: DILTIAZEM HCL 60MG TABLET PO SCH (06:00)
[2018-05-10] MEDS: BLOOD SUGAR DIAGNOSTIC STRIP TEST SCH ×4 (06:06→22:55)
[2018-05-10 06:34] LABS: BASOPHILS % 0.4 % (0.0-2.0); EOSINOPHILS % 0.8 % (0.0-5.0); HEMATOCRIT. 29.6 % (36.0-48.0); HEMOGLOBIN. 9.8 g/dL (12.0-16.0); LYMPHOCYTES % 33.6 % (20.0-50.0); MEAN CORPUSCULAR HEMOGLOBIN 30.1 pg (28.0-32.0); MEAN CORPUSCULAR VOLUME 91.2 fL (81.0-99.0); MEAN PLATELET VOLUME 8.3 fl (7.4-10.4); MONOCYTES % 10.7 % (2.0-8.0); NEUTROPHILS % 54.5 % (40.0-76.0); PLATELET 526 x1000/uL (130-400); RED BLOOD CELL COUNT 3.25 mill/uL (4.2-5.4); RED CELL DISTRIBUTION WIDTH 16.6 % (11.6-14.6)
[2018-05-10 08:28] LABS: PHOSPHORUS 2.9 mg/dL (2.5-4.9)
[2018-05-10] MEDS: HYDROCORTISONE 20MG TABLET GT SCH ×2 (10:06→20:56)
[2018-05-10] MEDS: ACETAMINOPHEN 325MG TABLET GT PRN (10:06)
[2018-05-10] MEDS: FAMOTIDINE 20MG/2ML VIAL IV SCH (10:06)
[2018-05-10] MEDS: INSULIN GLARGINE UD 100 UNITS/ML SYR SUBCUT SCH ×2 (10:09→22:53)
[2018-05-10] MEDS ORDERED: SODIUM POLYSTYRENE SULFONATE 15 G/60 ML BOT GT NR (10:30)
[2018-05-10] MEDS: DILTIAZEM HCL 30MG TABLET PO SCH ×2 (14:12→22:55)
[2018-05-10] MEDS ORDERED: FAMOTIDINE 20MG TABLET PO SCH (21:00)
[2018-05-11] VITALS (12 sets, daily range): BP systolic 128–206; BP diastolic 55–99
[2018-05-11] MEDS: IPRATROPIUM/ALBUTEROL 0.5-3(2.5)MG/3ML NEB HHN SCH ×3 (02:16→15:01)
[2018-05-11] MEDS: INSULIN LISPRO 100 UNITS/ML SUBCUT SCH ×3 (06:00→17:24)
[2018-05-11 06:05] LABS: CHLORIDE 103 mEq/L (98-107)
[2018-05-11 06:17] LABS: BASOPHILS % 0.4 % (0.0-2.0); EOSINOPHILS % 1.3 % (0.0-5.0); HEMATOCRIT. 30.8 % (36.0-48.0); LYMPHOCYTES % 37.3 % (20.0-50.0); MEAN CORPUSCULAR HEMOGLOBIN 29.7 pg (28.0-32.0); MEAN CORPUSCULAR VOLUME 91.5 fL (81.0-99.0); MEAN PLATELET VOLUME 8.1 fl (7.4-10.4); MONOCYTES % 11.2 % (2.0-8.0); NEUTROPHILS % 49.8 % (40.0-76.0); PLATELET 524 x1000/uL (130-400); RED BLOOD CELL COUNT 3.36 mill/uL (4.2-5.4); RED CELL DISTRIBUTION WIDTH 16.7 % (11.6-14.6)
[2018-05-11] MEDS: BLOOD SUGAR DIAGNOSTIC STRIP TEST SCH ×3 (06:32→17:13)
[2018-05-11] MEDS: DILTIAZEM HCL 30MG TABLET PO SCH ×3 (06:32→17:22)
[2018-05-11] MEDS: HYDROCORTISONE 20MG TABLET GT SCH (09:28)
[2018-05-11] MEDS: INSULIN GLARGINE UD 100 UNITS/ML SYR SUBCUT SCH (09:29)
[2018-05-11] MEDS: HYDRALAZINE 20MG/ML VIAL IV PRN (16:20)
== END 2018-05-11 22:26 | DRG 853 ==
LOC: ER 15:08 → EDBEDREQTM 16:50 → EDBEDREQ 16:50 → ENRESERV 19:01 → 5EST 05-02 02:58
PROVIDERS: ADMIT Internal Medicine; ATTEND Internal Medicine
PROC: 5A1955Z Respiratory Ventilation, Greater than 96 Consecutive Hours (ICD-10-PCS; 2018-05-01)
PROC: 30233N1 Transfusion of Nonautologous Red Blood Cells into Peripheral Vein, Percutaneous Approach (ICD-10-PCS; 2018-05-03)
PROC: 0Y6C0Z2 Detachment at Right Upper Leg, Mid, Open Approach (ICD-10-PCS; principal; 2018-05-06 10:30)
DX: A41.59 Other Gram-negative sepsis (principal); E43 Unspecified severe protein-calorie malnutrition; R65.21 Severe sepsis with septic shock; E11.52 Type 2 diabetes mellitus with diabetic peripheral angiopathy with gangrene; E27.40 Unspecified adrenocortical insufficiency; E87.1 Hypo-osmolality and hyponatremia; N17.9 Acute kidney failure, unspecified; J96.10 Chronic respiratory failure, unspecified whether with hypoxia or hypercapnia; B37.49 Other urogenital candidiasis; G93.40 Encephalopathy, unspecified; Z99.11 Dependence on respirator [ventilator] status; M86.8X7 Other osteomyelitis, ankle and foot; E11.65 Type 2 diabetes mellitus with hyperglycemia; E11.69 Type 2 diabetes mellitus with other specified complication; B95.2 Enterococcus as the cause of diseases classified elsewhere; B96.4 Proteus (mirabilis) (morganii) as the cause of diseases classified elsewhere; Z16.21 Resistance to vancomycin; D63.8 Anemia in other chronic diseases classified elsewhere; E11.22 Type 2 diabetes mellitus with diabetic chronic kidney disease; E87.5 Hyperkalemia; E87.6 Hypokalemia; I12.9 Hypertensive chronic kidney disease with stage 1 through stage 4 chronic kidney disease, or unspecified chronic kidney disease; I25.10 Atherosclerotic heart disease of native coronary artery without angina pectoris; I49.3 Ventricular premature depolarization; Z66 Do not resuscitate; J44.9 Chronic obstructive pulmonary disease, unspecified; K31.9 Disease of stomach and duodenum, unspecified; N18.9 Chronic kidney disease, unspecified; E87.8 Other disorders of electrolyte and fluid balance, not elsewhere classified; E83.52 Hypercalcemia; R13.10 Dysphagia, unspecified; Z79.4 Long term (current) use of insulin; Z86.73 Personal history of transient ischemic attack (TIA), and cerebral infarction without residual deficits; Z93.0 Tracheostomy status; Z93.1 Gastrostomy status; Z88.0 Allergy status to penicillin; Z89.511 Acquired absence of right leg below knee; Z89.611 Acquired absence of right leg above knee; Z88.5 Allergy status to narcotic agent; Z88.8 Allergy status to other drugs, medicaments and biological substances; Z79.1 Long term (current) use of non-steroidal anti-inflammatories (NSAID); Z79.899 Other long term (current) drug therapy; Z88.1 Allergy status to other antibiotic agents
CPT/HCPCS: 36415; 36600; 71045; 73630; 80048; 80061; 80202; 82375; 82570; 82805; 82962; 83605; 83735; 83935; 84100; 84134; 84145; 84300; 84484; 85027; 86850; 86900; 86920; 87070; 87077; 87106; 87186; 88307; 88311; 93005; 94002; 94003; 94640; 96365; 99285; C9113; J0278; J0360; J1170; J1815; J1956; J2020; J2250; J2704; J3010; J3370; J3475; J3480; J3490; J7030; J7040; J7050; J7060; J7620; P9016

== ENCOUNTER 2018-08-09 05:26 | Inpatient (IN) | payer MEDICARE, MEDICAID ==
[~2018-08-09] VITALS: Ht 162.6 cm; Wt 76.7 kg
[2018-08-09] MEDS ORDERED: ACETAMINOPHEN 325MG TABLET GT ONE (05:45)
[2018-08-09] MEDS ORDERED: SODIUM CHLORIDE 0.9% 1000ML BAG (SEPSIS BOLUS) IV ONE (05:45)
[2018-08-09] MEDS ORDERED: VANCOMYCIN 1 G PREMIX 200 ML IV ONE (05:45)
[2018-08-09] MEDS ORDERED: CLINDAMYCIN 600 MG in DEXTROSE 5% WATER 50 ML IV ONE (05:45)
[2018-08-09] MEDS ORDERED: ACETAMINOPHEN 325MG SUPP ONE (06:05)
[2018-08-09] MEDS: ACETAMINOPHEN 650MG SUPP PR ONE (06:08)
[2018-08-09 06:15] LABS: HEMATOCRIT. 29.1 % (36.0-48.0); HEMOGLOBIN. 9.5 g/dL (12.0-16.0); MEAN CORPUSCULAR HEMOGLOBIN 32.7 pg (28.0-32.0); MEAN CORPUSCULAR VOLUME 100.2 fL (81.0-99.0); MEAN PLATELET VOLUME 8.8 fl (7.4-10.4); PLATELET 545 x1000/uL (130-400); RED BLOOD CELL COUNT 2.91 mill/uL (4.2-5.4); RED CELL DISTRIBUTION WIDTH 16.4 % (11.6-14.6)
[2018-08-09 06:26] LABS: INR 1.1; PARTIAL THROMBOPLASTIN TIME 30.8 sec (23.4-31.0); PROTHROMBIN TIME 10.7 sec (9.1-11.1)
[2018-08-09 06:36] LABS: BG BASE EXCESS -1.7 mmol/L (-2.0-2.0); BG CARBOXYHEMOGLOBIN 0.3 % (0.5-1.5); BG DEOXYHEMOGLOBIN 0.8 % (0.0-5.0); BG FRACTION INSPIRED OXYGEN 50; BG HCO3 ACT 23.3 mmol/L (22.0-26.0); BG METHEMOGLOBIN 0.2 % (0.0-1.5); BG OXYGEN SATURATION 99.2 % (92.0-98.5); BG OXYHEMOGLOBIN 98.7 % (94.0-97.0); BG PCO2 40.8 mmHg (35.0-45.0); BG PEEP (cmH2O) 0 cmH2O; BG PH 7.375 (7.350-7.450); BG PO2 194.1 mmHg (75.0-100.0); BG SAMPLE SITE RIGHT RADIAL; BG TIDAL VOLUME(mL) 500 mL; BG TOTAL HEMOGLOBIN 8.6 g/dL (12.0-18.0); BG VENT MODE VENT - A/C; BG VENT RATE 12 set
[2018-08-09 07:00] LABS: CHLORIDE 100 mEq/L (98-107)
[2018-08-09] MEDS ORDERED: CEFEPIME HCL 2000MG/VIAL INJ IV ONE (07:00)
[2018-08-09 08:03] LABS: PLATELET ESTIMATE INCREASED
[2018-08-09] MEDS ORDERED: CEFEPIME 2,000 MG in DEXT 5% WATER 100 ML IV ONE (08:45)
[2018-08-09] MEDS ORDERED: ENOXAPARIN 40MG/0.4ML SYR SUBCUT SCH ×2 (12:45→17:00)
[2018-08-09] MEDS ORDERED: SODIUM POLYSTYRENE SULFONATE 15 G/60 ML BOT GT ONE (12:45)
[2018-08-09] MEDS ORDERED: VANCOMYCIN 1 G PREMIX 200 ML IV SCH (12:45)
[2018-08-09] MEDS ORDERED: ACETAMINOPHEN 325MG TABLET GT PRN (12:45)
[2018-08-09] MEDS: SODIUM CHLORIDE 0.9% 1,000 ML IV SCH ×2 (12:45→17:57)
[2018-08-09] MEDS ORDERED: ONDANSETRON HCL 4MG/2ML INJ IV PRN (12:45)
[2018-08-09] MEDS ORDERED: HYDROCORTISONE SOD SUCCINATE 100 MG/2 ML VIAL IV SCH (14:00)
[2018-08-09 16:00] VITALS: BP 110/50
[2018-08-09] MEDS ORDERED: DEXTROSE 50% WATER 50ML SYRINGE IV PRN (16:45)
[2018-08-09] MEDS: HYDROCORTISONE SOD SUCCINATE 100 MG/2 ML VIAL IV SCH (17:56)
[2018-08-09 18:00] VITALS: BP 128/56
[2018-08-09] MEDS ORDERED: LEVOFLOXACIN 750MG PREMIX 150 ML IV NR (18:00)
[2018-08-09] MEDS: BLOOD SUGAR DIAGNOSTIC STRIP TEST SCH (18:00)
[2018-08-09] MEDS ORDERED: SODIUM POLYSTYRENE SULFONATE 15 G/60 ML BOT GT NR (18:00)
[2018-08-09] MEDS ORDERED: HYDROCORTISONE 20MG TABLET GT SCH (18:00)
[2018-08-09] MEDS: INSULIN LISPRO (HIGH DOSE) 100 UNITS/ML SUBCUT SCH (18:33)
[2018-08-09 19:00] VITALS: BP 106/57
[2018-08-09 20:00] VITALS: BP 106/46
[2018-08-09] MEDS: IPRATROPIUM/ALBUTEROL 0.5-3(2.5)MG/3ML NEB INH PRN (21:35)
[2018-08-09 22:00] VITALS: BP 117/53
[2018-08-09] MEDS ORDERED: INSULIN GLARGINE UD 100 UNITS/ML SYR SUBCUT SCH (22:00)
[2018-08-10] VITALS (12 sets, daily range): BP systolic 108–160; BP diastolic 46–77
[2018-08-10] MEDS: HYDROCORTISONE SOD SUCCINATE 100 MG/2 ML VIAL IV SCH ×3 (00:11→18:34)
[2018-08-10] MEDS: BLOOD SUGAR DIAGNOSTIC STRIP TEST SCH ×4 (00:13→18:28)
[2018-08-10] MEDS: SODIUM CHLORIDE 0.9% 1,000 ML IV SCH ×2 (00:14→15:25)
[2018-08-10] MEDS: INSULIN LISPRO (HIGH DOSE) 100 UNITS/ML SUBCUT SCH ×4 (00:19→18:35)
[2018-08-10] MEDS ORDERED: VANCOMYCIN 750 MG PREMIX 150 ML IV SCH (06:00)
[2018-08-10 07:54] LABS: HEMATOCRIT. 24.4 % (36.0-48.0); HEMOGLOBIN. 7.9 g/dL (12.0-16.0); MEAN CORPUSCULAR HEMOGLOBIN 32.3 pg (28.0-32.0); MEAN CORPUSCULAR VOLUME 100.1 fL (81.0-99.0); MEAN PLATELET VOLUME 8.6 fl (7.4-10.4); PLATELET 448 x1000/uL (130-400); RED BLOOD CELL COUNT 2.44 mill/uL (4.2-5.4); RED CELL DISTRIBUTION WIDTH 16.4 % (11.6-14.6)
[2018-08-10] MEDS ORDERED: HYDROCORTISONE 20MG TABLET GT SCH (09:00)
[2018-08-10] MEDS: IPRATROPIUM/ALBUTEROL 0.5-3(2.5)MG/3ML NEB INH PRN (09:12)
[2018-08-10] MEDS ORDERED: INSULIN GLARGINE UD 100 UNITS/ML SYR SUBCUT NR (13:00)
[2018-08-10 14:30] LABS: PLATELET ESTIMATE INCREASED
[2018-08-10 16:11] LABS: CLARITY URINE CLOUDY (CLEAR); COLOR URINE YELLOW (YELLOW); KETONES URINE NEGATIVE (NEGATIVE); LEUKOCYTE ESTERASE URINE 2+ (NEGATIVE); NITRITE URINE NEGATIVE (NEGATIVE); OCCULT BLOOD URINE 2+ (NEGATIVE); PROTEIN URINE 2+ (NEGATIVE); SPECIFIC GRAVITY URINE 1.017 (1.005-1.030); UROBILINOGEN URINE 0.2 E.U./dL (0.2-1.0)
[2018-08-10] MEDS: VANCOMYCIN HCL 1000 MG/20 ML ORAL PO SCH (19:29)
[2018-08-10] MEDS: INSULIN GLARGINE UD 100 UNITS/ML SYR SUBCUT SCH (22:35)
[2018-08-11] VITALS (12 sets, daily range): BP systolic 142–184; BP diastolic 62–82
[2018-08-11] MEDS: VANCOMYCIN 750 MG PREMIX 150 ML IV SCH ×2 (00:50→17:09)
[2018-08-11] MEDS: HYDROCORTISONE SOD SUCCINATE 100 MG/2 ML VIAL IV SCH ×2 (00:51→08:32)
[2018-08-11] MEDS: INSULIN LISPRO (HIGH DOSE) 100 UNITS/ML SUBCUT SCH ×4 (01:04→17:55)
[2018-08-11] MEDS: SODIUM CHLORIDE 0.9% 1,000 ML IV SCH (03:44)
[2018-08-11] MEDS: VANCOMYCIN HCL 1000 MG/20 ML ORAL PO SCH ×4 (06:00→17:09)
[2018-08-11] MEDS: BLOOD SUGAR DIAGNOSTIC STRIP TEST SCH ×4 (06:44→17:28)
[2018-08-11] MEDS: LEVOFLOXACIN 500MG PREMIX 100 ML IV SCH (06:50)
[2018-08-11 08:32] LABS: HEMATOCRIT. 30.3 % (36.0-48.0); HEMOGLOBIN. 9.9 g/dL (12.0-16.0); MEAN CORPUSCULAR HEMOGLOBIN 33.3 pg (28.0-32.0); MEAN CORPUSCULAR VOLUME 101.7 fL (81.0-99.0); RED BLOOD CELL COUNT 2.98 mill/uL (4.2-5.4); RED CELL DISTRIBUTION WIDTH 16.6 % (11.6-14.6)
[2018-08-11] MEDS: INSULIN GLARGINE UD 100 UNITS/ML SYR SUBCUT SCH ×2 (09:45→22:04)
[2018-08-11] MEDS ORDERED: CLONIDINE 0.1MG TABLET PO PRN (10:15)
[2018-08-11] MEDS: HYDRALAZINE 20MG/ML VIAL IV PRN (14:39)
[2018-08-11] MEDS ORDERED: SODIUM CHLORIDE 0.45% 1,000 ML IV SCH (16:15)
[2018-08-11] MEDS: IPRATROPIUM/ALBUTEROL 0.5-3(2.5)MG/3ML NEB HHN SCH ×2 (16:49→20:23)
[2018-08-11] MEDS: HYDROCORTISONE 20MG TABLET GT SCH (17:08)
[2018-08-11] MEDS: AMLODIPINE 2.5MG TABLET PO SCH ×2 (17:09→22:02)
[2018-08-11] MEDS: CARVEDILOL 6.25 MG TABLET PO SCH (22:02)
[2018-08-12] VITALS (12 sets, daily range): BP systolic 110–177; BP diastolic 49–92
[2018-08-12] MEDS: BLOOD SUGAR DIAGNOSTIC STRIP TEST SCH ×5 (00:18→23:56)
[2018-08-12] MEDS: VANCOMYCIN HCL 1000 MG/20 ML ORAL PO SCH ×5 (00:25→23:51)
[2018-08-12] MEDS: INSULIN LISPRO (HIGH DOSE) 100 UNITS/ML SUBCUT SCH ×5 (00:30→23:56)
[2018-08-12] MEDS: IPRATROPIUM/ALBUTEROL 0.5-3(2.5)MG/3ML NEB HHN SCH ×4 (02:34→20:13)
[2018-08-12] MEDS: HYDRALAZINE 20MG/ML VIAL IV PRN (05:29)
[2018-08-12] MEDS: HYDROCORTISONE 20MG TABLET GT SCH ×2 (08:11→18:23)
[2018-08-12] MEDS: AMLODIPINE 2.5MG TABLET PO SCH ×2 (08:12→21:24)
[2018-08-12] MEDS: CARVEDILOL 6.25 MG TABLET PO SCH ×2 (08:12→21:24)
[2018-08-12 08:21] LABS: BASOPHILS % 0.2 % (0.0-2.0); EOSINOPHILS % 0.5 % (0.0-5.0); HEMATOCRIT. 25.9 % (36.0-48.0); HEMOGLOBIN. 8.5 g/dL (12.0-16.0); LYMPHOCYTES % 27.4 % (20.0-50.0); MEAN CORPUSCULAR HEMOGLOBIN 32.6 pg (28.0-32.0); MEAN CORPUSCULAR VOLUME 99.1 fL (81.0-99.0); MEAN PLATELET VOLUME 8.2 fl (7.4-10.4); MONOCYTES % 8.8 % (2.0-8.0); NEUTROPHILS % 63.1 % (40.0-76.0); PLATELET 474 x1000/uL (130-400); RED BLOOD CELL COUNT 2.61 mill/uL (4.2-5.4); RED CELL DISTRIBUTION WIDTH 15.8 % (11.6-14.6)
[2018-08-12 08:25] LABS: CHLORIDE 105 mEq/L (98-107)
[2018-08-12 08:32] LABS: HDL CHOLESTEROL 28 mg/dL (40-59); LDL CHOLESTEROL 154 mg/dL (5-100)
[2018-08-12 08:34] LABS: CREATINE KINASE 29 IU/L (26-192)
[2018-08-12] MEDS ORDERED: LIDOCAINE HCL 1% 20ML VIAL (Pyxis) INJ ONE (10:04)
[2018-08-12] MEDS: INSULIN GLARGINE UD 100 UNITS/ML SYR SUBCUT SCH ×2 (11:57→21:25)
[2018-08-12] MEDS: POTASSIUM CHLORIDE 20MEQ/PACKET GT SCH ×2 (12:15→18:24)
[2018-08-12] MEDS: VANCOMYCIN 750 MG PREMIX 150 ML IV SCH (12:15)
[2018-08-13] VITALS (13 sets, daily range): BP systolic 121–169; BP diastolic 57–84
[2018-08-13] MEDS: IPRATROPIUM/ALBUTEROL 0.5-3(2.5)MG/3ML NEB HHN SCH ×4 (02:03→20:37)
[2018-08-13] MEDS: INSULIN LISPRO (HIGH DOSE) 100 UNITS/ML SUBCUT SCH ×4 (05:15→23:29)
[2018-08-13] MEDS: VANCOMYCIN HCL 1000 MG/20 ML ORAL PO SCH ×4 (05:15→23:19)
[2018-08-13] MEDS: BLOOD SUGAR DIAGNOSTIC STRIP TEST SCH ×4 (05:15→23:29)
[2018-08-13] MEDS: VANCOMYCIN 750 MG PREMIX 150 ML IV SCH ×2 (05:15→23:19)
[2018-08-13 07:09] LABS: BASOPHILS % 0.3 % (0.0-2.0); EOSINOPHILS % 0.9 % (0.0-5.0); HEMATOCRIT. 25.8 % (36.0-48.0); HEMOGLOBIN. 8.4 g/dL (12.0-16.0); LYMPHOCYTES % 32.1 % (20.0-50.0); MEAN CORPUSCULAR HEMOGLOBIN 32.6 pg (28.0-32.0); MEAN CORPUSCULAR VOLUME 99.9 fL (81.0-99.0); MEAN PLATELET VOLUME 8.8 fl (7.4-10.4); MONOCYTES % 9.5 % (2.0-8.0); NEUTROPHILS % 57.2 % (40.0-76.0); PLATELET 476 x1000/uL (130-400); RED BLOOD CELL COUNT 2.58 mill/uL (4.2-5.4); RED CELL DISTRIBUTION WIDTH 15.7 % (11.6-14.6)
[2018-08-13 07:23] LABS: CHLORIDE 104 mEq/L (98-107)
[2018-08-13] MEDS: LEVOFLOXACIN 500MG PREMIX 100 ML IV SCH (08:07)
[2018-08-13] MEDS: AMLODIPINE 2.5MG TABLET PO SCH (09:41)
[2018-08-13] MEDS: POTASSIUM CHLORIDE 20MEQ/PACKET GT SCH ×3 (09:41→17:02)
[2018-08-13] MEDS: HYDROCORTISONE 20MG TABLET GT SCH ×2 (09:42→17:38)
[2018-08-13] MEDS: CARVEDILOL 6.25 MG TABLET PO SCH (09:42)
[2018-08-13] MEDS: INSULIN GLARGINE UD 100 UNITS/ML SYR SUBCUT SCH ×2 (11:01→22:27)
[2018-08-13] MEDS ORDERED: POTASSIUM CHLORIDE 20MEQ/PACKET NG NR (12:45)
[2018-08-13] MEDS: CARVEDILOL 12.5MG TABLET PO SCH (20:07)
[2018-08-13] MEDS: AMLODIPINE 5MG TABLET PO SCH (20:07)
[2018-08-14] VITALS (12 sets, daily range): BP systolic 117–155; BP diastolic 57–76
[2018-08-14] MEDS: ACETYLCYSTEINE 100MG/ML 10% VIAL 4ML INH SCH ×2 (01:11→12:02)
[2018-08-14] MEDS: IPRATROPIUM/ALBUTEROL 0.5-3(2.5)MG/3ML NEB HHN SCH ×4 (01:12→20:20)
[2018-08-14] MEDS: INSULIN LISPRO (HIGH DOSE) 100 UNITS/ML SUBCUT SCH ×3 (06:00→18:00)
[2018-08-14] MEDS: BLOOD SUGAR DIAGNOSTIC STRIP TEST SCH ×3 (06:40→18:42)
[2018-08-14] MEDS: VANCOMYCIN HCL 1000 MG/20 ML ORAL PO SCH ×2 (06:40→12:00)
[2018-08-14 08:29] LABS: HEMATOCRIT. 28.6 % (36.0-48.0); HEMOGLOBIN. 9.2 g/dL (12.0-16.0); MEAN CORPUSCULAR HEMOGLOBIN 32.1 pg (28.0-32.0); MEAN CORPUSCULAR VOLUME 99.8 fL (81.0-99.0); MEAN PLATELET VOLUME 8.5 fl (7.4-10.4); PLATELET 501 x1000/uL (130-400); RED BLOOD CELL COUNT 2.87 mill/uL (4.2-5.4); RED CELL DISTRIBUTION WIDTH 15.7 % (11.6-14.6)
[2018-08-14 08:53] LABS: CHLORIDE 104 mEq/L (98-107)
[2018-08-14] MEDS: CARVEDILOL 12.5MG TABLET PO SCH ×2 (09:00→22:00)
[2018-08-14] MEDS: HYDROCORTISONE 20MG TABLET GT SCH ×2 (10:00→18:41)
[2018-08-14] MEDS: INSULIN GLARGINE UD 100 UNITS/ML SYR SUBCUT SCH ×2 (10:00→22:00)
[2018-08-14] MEDS: AMLODIPINE 5MG TABLET PO SCH ×3 (10:01→22:00)
[2018-08-14] MEDS: POTASSIUM CHLORIDE 20MEQ/PACKET GT SCH ×2 (10:01→13:00)
[2018-08-14 20:33] LABS: PLATELET ESTIMATE INCREASED
[2018-08-15] MEDS ORDERED: VANCOMYCIN 750 MG PREMIX 150 ML IV SCH (06:00)
== END 2018-08-14 22:25 | DRG 870 ==
LOC: ER 05:26 → EDBEDREQSVC 06:01 → EDBEDREQTM 06:01 → 5EST 07:05 → EDBEDREQ 07:11 → EDBEDREQTM 07:11 → EDBEDREQSVC 07:11 → ENRESERV 13:29
PROVIDERS: ADMIT Internal Medicine; ATTEND Internal Medicine
PROC: 5A1955Z Respiratory Ventilation, Greater than 96 Consecutive Hours (ICD-10-PCS; principal; 2018-08-09)
PROC: 05HY33Z Insertion of Infusion Device into Upper Vein, Percutaneous Approach (ICD-10-PCS; 2018-08-12)
PROC: B54MZZA Ultrasonography of Right Upper Extremity Veins, Guidance (ICD-10-PCS; 2018-08-12)
DX: A41.02 Sepsis due to Methicillin resistant Staphylococcus aureus (principal); R65.21 Severe sepsis with septic shock; E43 Unspecified severe protein-calorie malnutrition; I33.0 Acute and subacute infective endocarditis; J96.10 Chronic respiratory failure, unspecified whether with hypoxia or hypercapnia; E27.40 Unspecified adrenocortical insufficiency; G93.40 Encephalopathy, unspecified; L97.429 Non-pressure chronic ulcer of left heel and midfoot with unspecified severity; N17.9 Acute kidney failure, unspecified; Z99.11 Dependence on respirator [ventilator] status; T81.49XA Infection following a procedure, other surgical site, initial encounter; L97.829 Non-pressure chronic ulcer of other part of left lower leg with unspecified severity; L97.819 Non-pressure chronic ulcer of other part of right lower leg with unspecified severity; J44.9 Chronic obstructive pulmonary disease, unspecified; D63.8 Anemia in other chronic diseases classified elsewhere; E11.51 Type 2 diabetes mellitus with diabetic peripheral angiopathy without gangrene; I25.10 Atherosclerotic heart disease of native coronary artery without angina pectoris; L89.329 Pressure ulcer of left buttock, unspecified stage; I10 Essential (primary) hypertension; E11.621 Type 2 diabetes mellitus with foot ulcer; E83.52 Hypercalcemia; R47.02 Dysphasia; E86.0 Dehydration; E87.5 Hyperkalemia; F03.90 Unspecified dementia, unspecified severity, without behavioral disturbance, psychotic disturbance, mood disturbance, and anxiety; R13.10 Dysphagia, unspecified; Y83.5 Amputation of limb(s) as the cause of abnormal reaction of the patient, or of later complication, without mention of misadventure at the time of the procedure; Y92.89 Other specified places as the place of occurrence of the external cause; Z89.611 Acquired absence of right leg above knee; Z88.0 Allergy status to penicillin; Z88.1 Allergy status to other antibiotic agents; Z93.1 Gastrostomy status; Z93.0 Tracheostomy status; I69.320 Aphasia following cerebral infarction; I69.391 Dysphagia following cerebral infarction; Z87.440 Personal history of urinary (tract) infections; Z87.01 Personal history of pneumonia (recurrent); Z68.29 Body mass index [BMI] 29.0-29.9, adult; Z88.5 Allergy status to narcotic agent; Z88.8 Allergy status to other drugs, medicaments and biological substances; Z79.899 Other long term (current) drug therapy
CPT/HCPCS: 36415; 36569; 36600; 71045; 76937; 80048; 80061; 80202; 82375; 82533; 82550; 82553; 82805; 82962; 83605; 83735; 83880; 84145; 84443; 84484; 85379; 87077; 87493; 93005; 93306; 94003; 94640; 96365; 96366; 96368; 99291; C1725; J0360; J0692; J1650; J1720; J1815; J1956; J3370; J3490; J7030; J7050; J7060; J7608; J7620; A4315

== ENCOUNTER 2019-10-03 21:28 | Inpatient (IN) | payer MEDICARE, MEDICAID ==
[~2019-10-03] VITALS: Ht 167.6 cm; Wt 92.8 kg
[~2019-10-03 21:28] MED LIST changes: +ALBU2.5V13 IH; +AMIN30LI2 PO; +AMLO5TAB88 GT; +ASCO-339 GT; +COR6 GT; -COR6 MT; +CRAN3875 PO; +FERR220S12 GT; +FRUC15LI PO; +HYDR-4001 GT; +HYDR25PO2 GT; +INSLIS SUBCUT; -INSU100I28 SQ; -METO-293 MT
[2019-10-03] MEDS ORDERED: NOREPINEPHRINE 4MG/250ML PMX 250 ML IV ONE (21:55)
[2019-10-03] MEDS ORDERED: EPINEPHRINE 1 MG in SODIUM CHLORIDE 0.9% 250 ML IV NR (22:02)
[2019-10-03] MEDS ORDERED: SODIUM CHLORIDE 0.9% 1000ML BAG (SEPSIS BOLUS) IV ONE (22:30)
[2019-10-03] MEDS ORDERED: VANCOMYCIN 1 G PREMIX 200 ML IV ONE (22:30)
[2019-10-03] MEDS ORDERED: LEVOFLOXACIN 750MG PREMIX 150 ML IV ONE (22:30)
[2019-10-03] MEDS ORDERED: DOPAMINE 400MG/250ML PREMIX 250 ML IV ONE (22:45)
[2019-10-03] MEDS ORDERED: FENTANYL CITRATE/PF 500 MCG in SODIUM CHLORIDE 0.9% 40 ML IV PRN (22:45)
[2019-10-03 23:00] LABS: INR 1.3; PROTHROMBIN TIME 14.1 sec (9.6-11.0)
[2019-10-03 23:04] LABS: CLARITY URINE CLOUDY (CLEAR); COLOR URINE YELLOW (YELLOW); KETONES URINE NEGATIVE (NEGATIVE); LEUKOCYTE ESTERASE URINE 3+ (NEGATIVE); NITRITE URINE NEGATIVE (NEGATIVE); OCCULT BLOOD URINE 3+ (NEGATIVE); PH URINE 5.5 (4.5-8.0); PROTEIN URINE TRACE (NEGATIVE); SPECIFIC GRAVITY URINE 1.004 (1.005-1.030); UROBILINOGEN URINE 0.2 E.U./dL (0.2-1.0)
[2019-10-04 01:05] LABS: HEMATOCRIT. 25.4 % (36.0-48.0); HEMOGLOBIN. 8.7 g/dL (12.0-16.0); MEAN CORPUSCULAR HEMOGLOBIN 33.2 pg (28.0-32.0); MEAN CORPUSCULAR VOLUME 96.7 fL (81.0-99.0); RED BLOOD CELL COUNT 2.63 mill/uL (4.2-5.4); RED CELL DISTRIBUTION WIDTH 15.7 % (11.6-14.6)
[2019-10-04 01:10] LABS: CHLORIDE 83 mEq/L (98-107)
[2019-10-04 01:49] LABS: BG CARBOXYHEMOGLOBIN 0.3 % (0.5-1.5); BG DEOXYHEMOGLOBIN 1.2 % (0.0-5.0); BG FRACTION INSPIRED OXYGEN 100; BG HCO3 ACT 16.9 mmol/L (22.0-26.0); BG METHEMOGLOBIN 0.3 % (0.0-1.5); BG OXYGEN SATURATION 98.8 % (92.0-98.5); BG OXYHEMOGLOBIN 98.2 % (94.0-97.0); BG PCO2 40.9 mmHg (35.0-45.0); BG PH 7.233 (7.350-7.450); BG PO2 145.4 mmHg (75.0-100.0); BG SAMPLE SITE LEFT RADIAL; BG TOTAL HEMOGLOBIN 10.3 g/dL (12.0-18.0); BG VENT MODE VENT - A/C; BG VENT RATE 12 set
[2019-10-04 02:05] LABS: PLATELET ESTIMATE NORMAL
[2019-10-04 02:07] LABS: PLATELET 165 x1000/uL (130-400)
[2019-10-04] MEDS ORDERED: INSULIN REGULAR (HUMULIN R) 300UNITS/3ML SUBCUT ONE (03:00)
[2019-10-04] MEDS: SODIUM CHLORIDE 0.9% 1,000 ML IV SCH ×2 (05:42→16:20)
[2019-10-04] MEDS: DOPAMINE 400MG/250ML PREMIX 250 ML IV SCH ×2 (05:43→18:54)
[2019-10-04] MEDS ORDERED: NOREPINEPHRINE 4MG/250ML PMX 250 ML IV SCH (06:00)
[2019-10-04] MEDS ORDERED: DIPHENHYDRAMINE 50MG/ML VIAL IV PRN (13:30)
[2019-10-04] MEDS ORDERED: ONDANSETRON HCL 4MG/2ML INJ IV PRN (13:30)
[2019-10-04] MEDS ORDERED: ENOXAPARIN 40MG/0.4ML SYR SUBCUT SCH (13:30)
[2019-10-04] MEDS ORDERED: ACETAMINOPHEN 650MG/20.3ML UDC GT PRN (13:30)
[2019-10-04] MEDS ORDERED: DEXTROSE 50% WATER 50ML SYRINGE IV PRN (13:30)
[2019-10-04] MEDS ORDERED: ALBUMIN HUMAN 25GM/100ML (25%) IV NR (14:00)
[2019-10-04] MEDS ORDERED: CITRIC ACID/SODIUM CITRATE SOLN 30ML UDC GT NR ×2 (14:15→17:29)
[2019-10-04] MEDS: ENOXAPARIN 30MG/0.3ML SYR SUBCUT SCH (15:00)
[2019-10-04 15:13] LABS: CHLORIDE 76 mEq/L (98-107)
[2019-10-04] MEDS ORDERED: DOPAMINE 400MG/250ML PREMIX 250 ML IV ONE (15:45)
[2019-10-04] MEDS ORDERED: NOREPINEPHRINE 4 MG in DEXT 5% WATER 246 ML IV ONE (15:45)
[2019-10-04] MEDS ORDERED: BLOOD SUGAR DIAGNOSTIC STRIP TEST NR (17:28)
[2019-10-04] MEDS ORDERED: INSULIN LISPRO 100 UNITS/ML SUBCUT NR (17:30)
[2019-10-04] MEDS: PHENYLEPHRINE 20 MG in DEXTROSE 5% WATER 250 ML IV PRN (20:50)
[2019-10-04] MEDS ORDERED: INSULIN LISPRO 100 UNITS/ML SUBCUT SCH (21:00)
[2019-10-04] MEDS ORDERED: INSULIN GLARGINE UD 100 UNITS/ML SYR SUBCUT SCH (23:00)
[2019-10-04 23:02] VITALS: BP 110/48
[2019-10-04 23:11] VITALS: BP 45/18
[2019-10-04 23:16] VITALS: BP 103/41
[2019-10-04 23:32] VITALS: BP 100/38
[2019-10-04 23:53] VITALS: BP 102/45
[2019-10-05] VITALS (97 sets, daily range): BP systolic 83–167; BP diastolic 31–66
[2019-10-05] MEDS ORDERED: SODIUM CHLORIDE 3% 500 ML IV SCH
[2019-10-05] MEDS: LEVOFLOXACIN 500MG PREMIX 100 ML IV SCH (00:21)
[2019-10-05] MEDS: BLOOD SUGAR DIAGNOSTIC STRIP TEST SCH ×19 (00:22→23:00)
[2019-10-05] MEDS: PHENYLEPHRINE 20 MG in DEXTROSE 5% WATER 250 ML IV PRN (00:22)
[2019-10-05] MEDS: DOPAMINE 400MG/250ML PREMIX 250 ML IV SCH (00:32)
[2019-10-05] MEDS ORDERED: NOREPINEPHRINE 4 MG in DEXT 5% WATER 250 ML IV SCH (01:00)
[2019-10-05 01:41] LABS: BG BASE EXCESS -17.5 mmol/L (-2.0-2.0); BG CARBOXYHEMOGLOBIN 0.1 % (0.5-1.5); BG DEOXYHEMOGLOBIN 6.2 % (0.0-5.0); BG FRACTION INSPIRED OXYGEN 100; BG HCO3 ACT 11.4 mmol/L (22.0-26.0); BG METHEMOGLOBIN 0.4 % (0.0-1.5); BG OXYGEN SATURATION 93.8 % (92.0-98.5); BG OXYHEMOGLOBIN 93.3 % (94.0-97.0); BG PCO2 40.6 mmHg (35.0-45.0); BG PH 7.068 (7.350-7.450); BG PO2 83.5 mmHg (75.0-100.0); BG SAMPLE SITE RIGHT RADIAL; BG TIDAL VOLUME(mL) 500 mL; BG VENT MODE VENT - A/C; BG VENT RATE 12 set
[2019-10-05] MEDS: PHENYLEPHRINE 40 MG in DEXT 5% WATER 246 ML IV PRN ×2 (01:57→05:21)
[2019-10-05] MEDS ORDERED: SODIUM BICARBONATE 8.4% 1 MEQ/ML 50ML SYR IV SCH (02:00)
[2019-10-05] MEDS: DOPAMINE 800MG PREMIX (DOUBLE) 250 ML IV PRN ×6 (02:15→20:40)
[2019-10-05] MEDS: NOREPINEPHRINE 32 MG in DEXT 5% WATER 468 ML IV PRN ×2 (02:52→21:12)
[2019-10-05 03:24] LABS: SODIUM URINE RANDOM 104 mEq/L
[2019-10-05] MEDS: VASOPRESSIN 10 UNIT in SODIUM CHLORIDE 0.9% 99.5 ML IV PRN ×4 (03:55→21:13)
[2019-10-05 04:52] LABS: HEMATOCRIT. 22.9 % (36.0-48.0); HEMOGLOBIN. 7.5 g/dL (12.0-16.0); MEAN CORPUSCULAR VOLUME 100.6 fL (81.0-99.0); MEAN PLATELET VOLUME 10.2 fl (7.4-10.4); PLATELET 185 x1000/uL (130-400); RED BLOOD CELL COUNT 2.27 mill/uL (4.2-5.4); RED CELL DISTRIBUTION WIDTH 15.7 % (11.6-14.6)
[2019-10-05 04:59] LABS: CHLORIDE 68 mEq/L (98-107)
[2019-10-05 05:06] LABS: PHOSPHORUS 3.9 mg/dL (2.5-4.9)
[2019-10-05 05:21] LABS: CREATINE KINASE 1018 IU/L (26-192)
[2019-10-05] MEDS ORDERED: DEXTROSE 50% WATER 50ML SYRINGE IV PRN (06:30)
[2019-10-05] MEDS ORDERED: INSULIN REGULAR (DRIP) 100 UNITS in SODIUM CHLORIDE 0.9% 99 ML IV PRN (06:30)
[2019-10-05] MEDS ORDERED: INSULIN LISPRO 100 UNITS/ML SUBCUT SCH ×2 (07:00)
[2019-10-05] MEDS: INSULIN REGULAR (DRIP) 100 UNITS in SODIUM CHLORIDE 0.9% 99 ML IV SCH ×2 (07:09→12:42)
[2019-10-05] MEDS ORDERED: PANTOPRAZOLE SODIUM 40 MG/VIAL IV SCH (09:00)
[2019-10-05] MEDS: CITRIC ACID/SODIUM CITRATE SOLN 30ML UDC GT SCH ×3 (09:00→17:50)
[2019-10-05] MEDS ORDERED: SODIUM BICARBONATE 8.4% 1 MEQ/ML 50ML SYR IV NR (09:30)
[2019-10-05 09:48] LABS: BG BASE EXCESS -12.4 mmol/L (-2.0-2.0); BG CARBOXYHEMOGLOBIN 0.7 % (0.5-1.5); BG DEOXYHEMOGLOBIN 4.4 % (0.0-5.0); BG FRACTION INSPIRED OXYGEN 100; BG HCO3 ACT 15.8 mmol/L (22.0-26.0); BG METHEMOGLOBIN 0.2 % (0.0-1.5); BG OXYGEN SATURATION 95.6 % (92.0-98.5); BG OXYHEMOGLOBIN 94.7 % (94.0-97.0); BG PCO2 47.4 mmHg (35.0-45.0); BG PH 7.141 (7.350-7.450); BG PO2 82.3 mmHg (75.0-100.0); BG SAMPLE SITE RIGHT RADIAL; BG TIDAL VOLUME(mL) 500 mL; BG VENT MODE VENT - A/C; BG VENT RATE 16 set
[2019-10-05 09:54] LABS: NUCLEATED RED BLOOD CELLS 2 /100 WBC; PLATELET ESTIMATE NORMAL
[2019-10-05] MEDS: METRONIDAZOLE 500 MG PREMIX 100 ML IV SCH ×2 (14:43→20:40)
[2019-10-05] MEDS: ENOXAPARIN 30MG/0.3ML SYR SUBCUT SCH (15:40)
[2019-10-05] MEDS: FAMOTIDINE 20MG/2ML VIAL IV SCH (20:38)
[2019-10-06] VITALS (97 sets, daily range): BP systolic 80–145; BP diastolic 34–102
[2019-10-06] MEDS: BLOOD SUGAR DIAGNOSTIC STRIP TEST SCH ×11 (01:58→17:19)
[2019-10-06] MEDS: LEVOFLOXACIN 500MG PREMIX 100 ML IV SCH (02:00)
[2019-10-06] MEDS: DOPAMINE 800MG PREMIX (DOUBLE) 250 ML IV PRN ×6 (04:23→23:09)
[2019-10-06 05:47] LABS: HEMOGLOBIN. 7.1 g/dL (12.0-16.0); MEAN CORPUSCULAR VOLUME 95.1 fL (81.0-99.0); MEAN PLATELET VOLUME 9.7 fl (7.4-10.4); PLATELET 149 x1000/uL (130-400); RED BLOOD CELL COUNT 2.15 mill/uL (4.2-5.4)
[2019-10-06 05:51] LABS: HEMATOCRIT. 20.4 % (36.0-48.0)
[2019-10-06 05:59] LABS: PHOSPHORUS 2.9 mg/dL (2.5-4.9)
[2019-10-06] MEDS: METRONIDAZOLE 500 MG PREMIX 100 ML IV SCH ×2 (06:00→14:33)
[2019-10-06 07:10] LABS: NUCLEATED RED BLOOD CELLS 1 /100 WBC; PLATELET ESTIMATE NORMAL
[2019-10-06] MEDS: CITRIC ACID/SODIUM CITRATE SOLN 30ML UDC GT SCH ×3 (08:31→17:18)
[2019-10-06] MEDS ORDERED: [UNRECOGNIZED DRUG - REMARK] XX SCH (08:45)
[2019-10-06] MEDS ORDERED: PHENYLEPHRINE 40 MG in SODIUM CHLORIDE 0.9% 246 ML IV PRN (09:00)
[2019-10-06 09:09] LABS: BG BASE EXCESS -9.3 mmol/L (-2.0-2.0); BG DEOXYHEMOGLOBIN 11.7 % (0.0-5.0); BG FRACTION INSPIRED OXYGEN 100; BG HCO3 ACT 16.9 mmol/L (22.0-26.0); BG METHEMOGLOBIN 0.2 % (0.0-1.5); BG OXYGEN SATURATION 88.3 % (92.0-98.5); BG OXYHEMOGLOBIN 88.1 % (94.0-97.0); BG PCO2 38.1 mmHg (35.0-45.0); BG PH 7.265 (7.350-7.450); BG PO2 53.8 mmHg (75.0-100.0); BG SAMPLE SITE RIGHT RADIAL; BG TIDAL VOLUME(mL) 500 mL; BG TOTAL HEMOGLOBIN 7.1 g/dL (12.0-18.0); BG VENT MODE VENT - A/C; BG VENT RATE 24 set
[2019-10-06] MEDS: SODIUM CHLORIDE 3% 500 ML IV SCH (10:26)
[2019-10-06] MEDS ORDERED: SODIUM BICARBONATE 8.4% 1 MEQ/ML 50ML SYR IV SCH (12:15)
[2019-10-06] MEDS: VASOPRESSIN 10 UNIT in SODIUM CHLORIDE 0.9% 99.5 ML IV PRN ×2 (13:35→20:56)
[2019-10-06] MEDS: ENOXAPARIN 30MG/0.3ML SYR SUBCUT SCH (14:34)
[2019-10-06] MEDS: NOREPINEPHRINE 32 MG in SODIUM CHLORIDE 0.9% 468 ML IV PRN ×2 (15:53→17:17)
[2019-10-06] MEDS ORDERED: CEFTRIAXONE 1 G PREMIX 50 ML IV SCH (16:00)
[2019-10-06] MEDS ORDERED: AMIKACIN SULFATE 500 MG in SODIUM CHLORIDE 0.9% 100 ML IV NR (17:00)
[2019-10-06] MEDS: INSULIN LISPRO 100 UNITS/ML SUBCUT SCH (17:18)
[2019-10-06] MEDS: FAMOTIDINE 20MG/2ML VIAL IV SCH (20:56)
[2019-10-07] VITALS (83 sets, daily range): BP systolic 81–127; BP diastolic 33–73
[2019-10-07] MEDS: SODIUM CHLORIDE 3% 500 ML IV SCH ×2 (01:40→16:16)
[2019-10-07] MEDS: DOPAMINE 800MG PREMIX (DOUBLE) 250 ML IV PRN ×7 (02:50→21:37)
[2019-10-07 05:44] LABS: MEAN CORPUSCULAR HEMOGLOBIN 31.8 pg (28.0-32.0); MEAN PLATELET VOLUME 9.8 fl (7.4-10.4); PLATELET 134 x1000/uL (130-400); RED BLOOD CELL COUNT 2.04 mill/uL (4.2-5.4); RED CELL DISTRIBUTION WIDTH 15.3 % (11.6-14.6)
[2019-10-07 07:48] LABS: HEMATOCRIT. 20.2 % (36.0-48.0); HEMOGLOBIN. 6.5 g/dL (12.0-16.0)
[2019-10-07] MEDS: VASOPRESSIN 10 UNIT in SODIUM CHLORIDE 0.9% 99.5 ML IV PRN ×2 (08:17→22:30)
[2019-10-07] MEDS: INSULIN LISPRO 100 UNITS/ML SUBCUT SCH ×2 (09:00→17:00)
[2019-10-07] MEDS: BLOOD SUGAR DIAGNOSTIC STRIP TEST SCH ×2 (09:03→17:00)
[2019-10-07] MEDS: CITRIC ACID/SODIUM CITRATE SOLN 30ML UDC GT SCH ×3 (09:11→16:49)
[2019-10-07] MEDS ORDERED: SODIUM BICARBONATE 8.4% 1 MEQ/ML 50ML SYR IV NR (09:15)
[2019-10-07] MEDS ORDERED: IPRATROPIUM/ALBUTEROL 0.5-3(2.5)MG/3ML NEB HHN PRN (09:30)
[2019-10-07 09:32] LABS: NUCLEATED RED BLOOD CELLS 5 /100 WBC
[2019-10-07 09:33] LABS: PLATELET ESTIMATE NORMAL
[2019-10-07 09:43] LABS: BG BASE EXCESS -18.3 mmol/L (-2.0-2.0); BG DEOXYHEMOGLOBIN 3.5 % (0.0-5.0); BG FRACTION INSPIRED OXYGEN 100; BG HCO3 ACT 10.8 mmol/L (22.0-26.0); BG METHEMOGLOBIN 0.1 % (0.0-1.5); BG OXYGEN SATURATION 96.5 % (92.0-98.5); BG OXYHEMOGLOBIN 95.4 % (94.0-97.0); BG PO2 90.5 mmHg (75.0-100.0); BG SAMPLE SITE RIGHT RADIAL; BG TIDAL VOLUME(mL) 500 mL; BG VENT MODE VENT - A/C; BG VENT RATE 28 set
[2019-10-07] MEDS: LORAZEPAM 2MG/ML CPJ IV PRN (11:50)
[2019-10-07] MEDS: NOREPINEPHRINE 32 MG in SODIUM CHLORIDE 0.9% 468 ML IV PRN (11:55)
[2019-10-07] MEDS: LEVETIRACETAM 250 MG in SODIUM CHLORIDE 0.9% 100 ML IV SCH (13:07)
[2019-10-07] MEDS: ENOXAPARIN 30MG/0.3ML SYR SUBCUT SCH (15:00)
[2019-10-07] MEDS ORDERED: AMIKACIN SULFATE 450 MG in SODIUM CHLORIDE 0.9% 100 ML IV SCH (16:00)
[2019-10-07] MEDS: CEFEPIME 1,000 MG in DEXTROSE 5% WATER 50 ML IV SCH (16:20)
[2019-10-07] MEDS ORDERED: AMIKACIN 500MG in SODIUM CHLORIDE 0.9% 100ML IV SCH (17:00)
[2019-10-07] MEDS: IPRATROPIUM/ALBUTEROL 0.5-3(2.5)MG/3ML NEB HHN SCH (19:55)
[2019-10-07] MEDS: FAMOTIDINE 20MG/2ML VIAL IV SCH (22:29)
[2019-10-08] VITALS (97 sets, daily range): BP systolic 57–145; BP diastolic 17–91
[2019-10-08] MEDS: IPRATROPIUM/ALBUTEROL 0.5-3(2.5)MG/3ML NEB HHN SCH ×4 (00:15→20:31)
[2019-10-08] MEDS: LORAZEPAM 2MG/ML CPJ IV PRN ×2 (01:02→12:23)
[2019-10-08] MEDS: LEVETIRACETAM 250 MG in SODIUM CHLORIDE 0.9% 100 ML IV SCH ×2 (01:02→12:23)
[2019-10-08] MEDS ORDERED: LEVOFLOXACIN 250MG PREMIX 50 ML IV SCH (02:00)
[2019-10-08] MEDS: NOREPINEPHRINE 32 MG in SODIUM CHLORIDE 0.9% 468 ML IV PRN ×2 (03:58→21:59)
[2019-10-08] MEDS: DOPAMINE 800MG PREMIX (DOUBLE) 250 ML IV PRN ×4 (04:00→22:10)
[2019-10-08 05:37] LABS: MEAN CORPUSCULAR HEMOGLOBIN 32.5 pg (28.0-32.0); MEAN PLATELET VOLUME 9.4 fl (7.4-10.4); PLATELET 123 x1000/uL (130-400); RED BLOOD CELL COUNT 1.87 mill/uL (4.2-5.4)
[2019-10-08] MEDS: SODIUM CHLORIDE 3% 500 ML IV SCH (05:44)
[2019-10-08 06:02] LABS: HEMATOCRIT. 18.9 % (36.0-48.0); HEMOGLOBIN. 6.1 g/dL (12.0-16.0)
[2019-10-08 06:03] LABS: PHOSPHORUS 5.7 mg/dL (2.5-4.9)
[2019-10-08 07:47] LABS: NUCLEATED RED BLOOD CELLS 2 /100 WBC; PLATELET ESTIMATE SLIGHTLY DECREASED
[2019-10-08] MEDS: VASOPRESSIN 10 UNIT in SODIUM CHLORIDE 0.9% 99.5 ML IV PRN ×3 (07:48→17:13)
[2019-10-08 07:58] LABS: BG BASE EXCESS -16.7 mmol/L (-2.0-2.0); BG DEOXYHEMOGLOBIN 2.9 % (0.0-5.0); BG HCO3 ACT 11.5 mmol/L (22.0-26.0); BG METHEMOGLOBIN 0.5 % (0.0-1.5); BG OXYGEN SATURATION 97.1 % (92.0-98.5); BG OXYHEMOGLOBIN 95.6 % (94.0-97.0); BG PCO2 38.4 mmHg (35.0-45.0); BG PH 7.096 (7.350-7.450); BG PO2 102.1 mmHg (75.0-100.0); BG SAMPLE SITE RIGHT RADIAL; BG TIDAL VOLUME(mL) 500 mL; BG VENT MODE VENT - A/C; BG VENT RATE 28 set
[2019-10-08] MEDS ORDERED: SODIUM BICARBONATE 8.4% 1 MEQ/ML 50ML SYR IV NR (08:30)
[2019-10-08] MEDS: INSULIN LISPRO 100 UNITS/ML SUBCUT SCH ×2 (09:00→17:00)
[2019-10-08] MEDS: BLOOD SUGAR DIAGNOSTIC STRIP TEST SCH ×2 (09:31→17:12)
[2019-10-08] MEDS: CITRIC ACID/SODIUM CITRATE SOLN 30ML UDC GT SCH ×3 (09:31→17:12)
[2019-10-08] MEDS: CEFEPIME 1,000 MG in DEXTROSE 5% WATER 50 ML IV SCH (13:25)
[2019-10-08] MEDS: ENOXAPARIN 30MG/0.3ML SYR SUBCUT SCH (14:46)
[2019-10-08] MEDS ORDERED: PHENYLEPHRINE 80 MG in DEXT 5% WATER 492 ML IV PRN (15:30)
[2019-10-08] MEDS: PHENYLEPHRINE 80 MG in SODIUM CHLORIDE 0.9% 492 ML IV PRN (17:43)
[2019-10-08] MEDS: FAMOTIDINE 20MG/2ML VIAL IV SCH (22:09)
[2019-10-09] VITALS (52 sets, daily range): BP systolic 53–135; BP diastolic 23–82
[2019-10-09] MEDS: VASOPRESSIN 10 UNIT in SODIUM CHLORIDE 0.9% 99.5 ML IV PRN ×2 (00:22→02:51)
[2019-10-09] MEDS: LORAZEPAM 2MG/ML CPJ IV PRN (00:52)
[2019-10-09] MEDS: LEVETIRACETAM 250 MG in SODIUM CHLORIDE 0.9% 100 ML IV SCH (01:01)
[2019-10-09] MEDS: PHENYLEPHRINE 80 MG in SODIUM CHLORIDE 0.9% 492 ML IV PRN ×2 (02:19→09:48)
[2019-10-09] MEDS: DOPAMINE 800MG PREMIX (DOUBLE) 250 ML IV PRN ×2 (03:10→09:49)
[2019-10-09 06:19] LABS: MEAN CORPUSCULAR HEMOGLOBIN 31.6 pg (28.0-32.0); MEAN CORPUSCULAR VOLUME 105.5 fL (81.0-99.0); MEAN PLATELET VOLUME 9.6 fl (7.4-10.4); PLATELET 117 x1000/uL (130-400); RED BLOOD CELL COUNT 1.88 mill/uL (4.2-5.4); RED CELL DISTRIBUTION WIDTH 15.6 % (11.6-14.6)
[2019-10-09] MEDS: SODIUM CHLORIDE 3% 500 ML IV SCH (06:41)
[2019-10-09 06:55] LABS: HEMOGLOBIN. 5.9 g/dL (12.0-16.0)
[2019-10-09 06:56] LABS: HEMATOCRIT. 19.8 % (36.0-48.0)
[2019-10-09 07:04] LABS: PHOSPHORUS 7.8 mg/dL (2.5-4.9)
[2019-10-09] MEDS: DEXTROSE 50% WATER 50ML SYRINGE IV PRN ×2 (07:42→09:31)
[2019-10-09] MEDS: INSULIN LISPRO 100 UNITS/ML SUBCUT SCH (09:00)
[2019-10-09] MEDS: IPRATROPIUM/ALBUTEROL 0.5-3(2.5)MG/3ML NEB HHN SCH (09:05)
[2019-10-09] MEDS: BLOOD SUGAR DIAGNOSTIC STRIP TEST SCH (09:34)
[2019-10-09 09:46] LABS: NUCLEATED RED BLOOD CELLS 1 /100 WBC
[2019-10-09 09:47] LABS: PLATELET ESTIMATE SLIGHTLY DECREASED
[2019-10-09] MEDS: CITRIC ACID/SODIUM CITRATE SOLN 30ML UDC GT SCH (09:48)
[2019-10-09] MEDS ORDERED: SODIUM POLYSTYRENE SULFONATE 15 G/60 ML BOT NG NR (12:30)
[2019-10-09] MEDS ORDERED: FENTANYL CITRATE/PF 50MCG/ML 2ML VIAL IV PRN (12:45)
[2019-10-09] MEDS ORDERED: LORAZEPAM 2MG/ML CPJ IV PRN (12:45)
== END 2019-10-09 17:42 | disposition expired | DRG 870 ==
LOC: ER 21:28 → MICUSO 10-04 01:44 → EDBEDREQ 10-04 03:36 → ENRESERV 10-04 20:42 → 5EST 10-09 00:17
PROVIDERS: ADMIT Internal Medicine; ATTEND Internal Medicine
PROC: 5A1955Z Respiratory Ventilation, Greater than 96 Consecutive Hours (ICD-10-PCS; principal; 2019-10-03)
PROC: 5A12012 Performance of Cardiac Output, Single, Manual (ICD-10-PCS; 2019-10-04)
PROC: 3E0A3GC Introduction of Other Therapeutic Substance into Bone Marrow, Percutaneous Approach (ICD-10-PCS; 2019-10-04)
PROC: 05HY33Z Insertion of Infusion Device into Upper Vein, Percutaneous Approach (ICD-10-PCS; 2019-10-04)
PROC: B54NZZA Ultrasonography of Left Upper Extremity Veins, Guidance (ICD-10-PCS; 2019-10-04)
PROC: 5A1223Z Performance of Cardiac Pacing, Continuous (ICD-10-PCS; 2019-10-04)
DX: A40.1 Sepsis due to streptococcus, group B (principal); R65.21 Severe sepsis with septic shock; E43 Unspecified severe protein-calorie malnutrition; J96.20 Acute and chronic respiratory failure, unspecified whether with hypoxia or hypercapnia; J18.9 Pneumonia, unspecified organism; K85.90 Acute pancreatitis without necrosis or infection, unspecified; N17.9 Acute kidney failure, unspecified; E87.1 Hypo-osmolality and hyponatremia; J44.0 Chronic obstructive pulmonary disease with (acute) lower respiratory infection; M62.82 Rhabdomyolysis; K92.2 Gastrointestinal hemorrhage, unspecified; E87.4 Mixed disorder of acid-base balance; Z99.11 Dependence on respirator [ventilator] status; N39.0 Urinary tract infection, site not specified; R47.01 Aphasia; E87.6 Hypokalemia; N18.3 Chronic kidney disease, stage 3 (moderate); L89.90 Pressure ulcer of unspecified site, unspecified stage; I25.10 Atherosclerotic heart disease of native coronary artery without angina pectoris; M19.90 Unspecified osteoarthritis, unspecified site; Z96.651 Presence of right artificial knee joint; R62.7 Adult failure to thrive; E78.5 Hyperlipidemia, unspecified; F01.50 Vascular dementia, unspecified severity, without behavioral disturbance, psychotic disturbance, mood disturbance, and anxiety; G40.909 Epilepsy, unspecified, not intractable, without status epilepticus; E11.51 Type 2 diabetes mellitus with diabetic peripheral angiopathy without gangrene; I12.9 Hypertensive chronic kidney disease with stage 1 through stage 4 chronic kidney disease, or unspecified chronic kidney disease; E11.22 Type 2 diabetes mellitus with diabetic chronic kidney disease; Z66 Do not resuscitate; Z93.0 Tracheostomy status; D50.0 Iron deficiency anemia secondary to blood loss (chronic); R47.02 Dysphasia; B96.1 Klebsiella pneumoniae [K. pneumoniae] as the cause of diseases classified elsewhere; E11.65 Type 2 diabetes mellitus with hyperglycemia; Z88.6 Allergy status to analgesic agent; Z88.5 Allergy status to narcotic agent; Z88.0 Allergy status to penicillin; Z88.8 Allergy status to other drugs, medicaments and biological substances; Z79.891 Long term (current) use of opiate analgesic; Z79.4 Long term (current) use of insulin; Z79.1 Long term (current) use of non-steroidal anti-inflammatories (NSAID); Z79.899 Other long term (current) drug therapy; Z68.33 Body mass index [BMI] 33.0-33.9, adult; Z93.1 Gastrostomy status; Z83.3 Family history of diabetes mellitus; Z82.49 Family history of ischemic heart disease and other diseases of the circulatory system; Z03.818 Encounter for observation for suspected exposure to other biological agents ruled out; Z87.440 Personal history of urinary (tract) infections; Z87.01 Personal history of pneumonia (recurrent); Z89.611 Acquired absence of right leg above knee
CPT/HCPCS: 36415; 36600; 71045; 80048; 80053; 80150; 81003; 82375; 82533; 82550; 82805; 82962; 83036; 83605; 83735; 83880; 83935; 84100; 84145; 84300; 84443; 84484; 85025; 87070; 87077; 87186; 87635; 87804; 93005; 93306; 94002; 94003; 94640; 99284; C9113; J0278; J0692; J0696; J1265; J1650; J1815; J1953; J1956; J2060; J2370; J3370; J3490; J7030; J7040; J7050; J7060; P9047